=== PATIENT | male | born 1950 ===

== ENCOUNTER 2016-12-13 21:25 | Inpatient (IN) | payer MEDICAID ==
[2016-12-13 21:25] VITALS: BMI 27.3
[2016-12-13 22:14] LABS: BASO # 0.1 K/uL (0.0-0.2); BASO % 0.9 % (0.0-2.0); EOS # 0.5 K/uL (0.0-0.7); EOS % 4.6 % (0.0-4.0); HEMATOCRIT 36.4 % (35.0-51.0); LYMPH # 1.7 K/uL (1.0-4.3); LYMPH % 14.8 % (20.0-40.0); MEAN CELL VOLUME 78.1 fL (80.0-94.0); MEAN CORPUSCULAR HEMOGLOBIN 25.3 pg (27.0-31.0); MEAN CORPUSCULAR HGB CONC 32.4 g/dL (33.0-37.0); MEAN PLATELET VOLUME 8.1 fL (7.2-11.7); MONO # 0.4 K/uL (0.0-0.8); MONO % 3.8 % (0.0-10.0); NRBC % 0.1 % (0.0-2.0); RED CELL DISTRIBUTION WIDTH 14.6 % (11.5-14.5); WHITE BLOOD COUNT 11.5 K/uL (4.8-10.8)
[2016-12-13 22:20] LABS: CHLORIDE 98 mmol/L (98-107); POTASSIUM 4.1 mmol/L (3.6-5.2); SODIUM 132 mmol/L (132-148)
[2016-12-13 22:22] LABS: AST/SGOT 22 U/L (17-59); BILIRUBIN,TOTAL 0.6 mg/dL (0.2-1.3); CARBON DIOXIDE 25 mmol/L (22-30); GFR AFRICAN-AMERICAN > 60
[2016-12-13 22:23] LABS: ALKALINE PHOSPHATASE 82 U/L (38-126); ALT/SGPT 19 U/L (21-72); BLOOD UREA NITROGEN 27 mg/dL (9-20); CALCIUM 8.2 mg/dl (8.6-10.4); GLUCOSE,RANDOM 213 mg/dL (75-110)
[2016-12-13] MEDS ORDERED: Sodium Chloride 0.9% 1,000 ML IV ONE (22:37)
[2016-12-13] MEDS ORDERED: Iohexol 240 (50 ml) PO ONE (22:38)
--- NOTE | 2016-12-13 22:38 | C.PDOC ---
History Of Present Illness Patient is a 66 year old male who presents to the ER with a complaint of vomiting and abdominal pain since yesterday. Patient also report having a cyst on the back of his head. Denies fever, chills, dysuria and hematuria. Chief Complaint (Nursing): Abdominal Pain History Per: Patient History/Exam Limitations: no limitations Onset/Duration Of Symptoms: Days (Since yesterday) Current Symptoms Are (Timing): Still Present Location Of Pain/Discomfort: Epigastric Associated Symptoms: Vomiting. denies: Fever, Chills, Urinary Symptoms Exacerbating Factors: None Alleviating Factors: None Recent travel outside of the [place]: No Past Medical History Reviewed: Historical Data, Nursing Documentation, Vital Signs Vital Signs: Last Vital Signs Temp 98.0 F 12/14/16 02:41 Pulse 93 H 12/14/16 02:41 Resp 18 12/14/16 02:41 BP 164/95 H 12/14/16 02:41 Pulse Ox 98 12/14/16 02:41 - Medical History PMH: Diabetes, HTN, Hypercholesterolemia - [facility] Procedures CLOSED BIOPSY OF SKIN AND SUBCUTANEOUS TISSUE (12/09/14) DEBRIDEMENT OF NAIL, NAIL BED OR NAIL FOLD (03/03/15) DRAINAGE OF LEFT LOWER LEG SKIN, EXTERNAL APPROACH (09/09/16) EXCISION OF L FOOT SUBCU/FASCIA, OPEN APPROACH (09/09/16) FOOT & TOE JOINT BIOPSY (12/09/14) INSERTION OF INFUSION DEV INTO SUP VENA CAVA, PERC APPROACH (08/21/16) NONEXCIS DEBRID OF WOUND, INFECT, OR BURN (11/22/14) OTHER LOCAL DESTRUC SKIN (01/22/15) ULTRASONOGRAPHY OF SUPERIOR VENA CAVA, GUIDANCE (08/21/16) Family History: States: Unknown Family Hx - Social History Hx Tobacco Use: No Hx Alcohol Use: No Hx Substance Use: No - Immunization History Hx Tetanus Toxoid Vaccination: Yes Hx Influenza Vaccination: Yes (04/2016) Hx Pneumococcal Vaccination: Yes (2012) Review Of Systems Constitutional: Negative for: Fever, Chills Gastrointestinal: Positive for: Vomiting, Abdominal Pain Genitourinary: Negative for: Dysuria, Hematuria Skin: Positive for: Other (Cyst on back of head) Physical Exam - Physical Exam Appears: Non-toxic, Other (Mild distress) Skin: Normal Color, Warm, Dry Head: Other ([id number] sebaceous cyst on back of head) Eye(s): bilateral: Normal Inspection, EOMI Oral Mucosa: Moist Chest: Symmetrical, No Tenderness Cardiovascular: Rhythm Regular, No Murmur Respiratory: Normal Breath Sounds, No Rales, No Rhonchi, No Wheezing Gastrointestinal/Abdominal: Soft, Tenderness (Epigastric), No Distention, No Guarding, No Rebound Neurological/Psych: Oriented x3, Normal Speech, Normal Cognition ED Course And Treatment - Laboratory Results Result Diagrams: 12/13/16 22:07 12/13/16 22:07 O2 Sat by Pulse Oximetry: 96 (Room air) Pulse Ox Interpretation: Normal - Radiology CXR: Interpreted by Me, Viewed By Me CXR Interpretation: Yes: No Acute Disease. No: Infiltrates - CT Scan/US CT abd/pel Other Rad Studies (CT/US): Read By Radiologist, Radiology Report Reviewed CT/US Interpretation: IMPRESSION: 1. Diverticulosis without definite CT evidence of diverticulitis. 2. Bladder wall thickening, nonspecific. Clinical correlation is needed. 3. Incidental/non-acute findings are described above. Progress Note: CT of abd/pel with PO & IV contrast ordered. Morphine IVP, zofran IVP and IV fluids administered. Disposition Discussed With Dr.: Gurpreet Hogan Jr. Doctor Will See Patient In The: Hospital Counseled Patient/Family Regarding: Diagnosis - Disposition Disposition: HOSPITALIZED Disposition Time: 01:47 Condition: STABLE - POA Present On Arrival: None - Clinical Impression Clinical Impression: Abdominal pain, Acute pancreatitis - Scribe Statement The provider has reviewed the documentation as recorded by the Scribe Provider Attestation: Jeovany Barrett All medical record entries made by the Scribe were at my direction and personally dictated by me. I have reviewed the chart and agree that the record accurately reflects my personal performance of the history, physical exam, medical decision making, and the department course for this patient. I have also personally directed, reviewed, and agree with the discharge instructions and disposition.
[2016-12-13] MEDS ORDERED: Iohexol 240 (50 ml) ONE (22:51)
[2016-12-13] MEDS ORDERED: Sodium Chloride 0.9% 1,000 ML ONE (22:52)
[2016-12-13] MEDS ORDERED: Iodixanol 320 MG/ML 100 ML BOTTLE IV ONE (23:09)
--- NOTE | 2016-12-14 01:26 | CT ---
EXAM: CT Abdomen and Pelvis With Intravenous Contrast CLINICAL HISTORY: 66 years old, male; Pain; Abdominal pain; Additional info: Upper abd pain TECHNIQUE: Axial computed tomography images of the abdomen and pelvis with intravenous contrast. This CT exam was performed using one or more of the following dose reduction techniques: automated exposure control, adjustment of the mA and/or kV according to patient size, and/or use of iterative reconstruction technique. Coronal and sagittal reformatted images were created and reviewed. CONTRAST: 100 mL of [id number] administered intravenously. COMPARISON: No relevant prior studies available. FINDINGS: Limitations: Motion artifact - mild. Lower thorax: Minimal atelectasis/scarring. Probable small hiatal hernia. ABDOMEN: Liver: Unremarkable. No mass. Gallbladder and bile ducts: No calcified stones. No ductal dilation. Pancreas: No ductal dilation. No mass. Spleen: No splenomegaly. Adrenals: No mass. Kidneys and ureters: Mild stranding about kidneys, nonspecific. Too small to characterize lesion within LEFT kidney. No hydronephrosis. Stomach and bowel: Multiple scattered diverticula within colon. No associated inflammatory stranding. No definite mural thickening. No obstruction. Appendix: Normal caliber. No inflammation. PELVIS: Bladder: Mild focal anterior bladder wall thickening. Reproductive: Unremarkable as visualized. ABDOMEN and PELVIS: Intraperitoneal space: No significant fluid collection. No free air. Bones/joints: Mild degenerative changes of spine. No acute fracture. Soft tissues: Small inguinal hernias containing fat. Tiny umbilical hernia containing fat. Vasculature: Mild atherosclerotic disease. No abdominal aortic aneurysm. Lymph nodes: No pathologically enlarged lymph nodes. IMPRESSION: 1. Diverticulosis without definite CT evidence of diverticulitis. 2. Bladder wall thickening, nonspecific. Clinical correlation is needed. 3. Incidental/non-acute findings are described above.
[2016-12-14] MEDS: Sodium Chloride 0.9% 1,000 ML IV SCH ×4 (03:10→21:52)
--- NOTE | 2016-12-14 03:34 | CP.PCM.HP ---
History of Present Illness - History of Present Illness History of Present Illness: CC: "abdominal pain and vomiting" HPI: Patient is a 66 year old male with medical history significant for insulin dependent diabetes mellitus, hypertension, hyperlipidemia, left diabetic foot ulcer, and BPH who presents to the emergency department accompanied by his daughter for multiple episodes of emesis and abdominal pain. Patient reports the vomiting began around 6 am when he was getting ready to go to [facility] for wound care of his left foot. Daughter present at bedside states patient had 7 episodes of emesis, [id number] in color and streaked with blood during one episode. Patient admits to epigastric abdominal pain, 8/10 intensity, sharp in quality and intermittent. He denies diarrhea and states he had a non-bloody, normal bowel movement yesterday and denies melanic stool. He has no history of recent travel, denies sick contacts, fever, and chills. Patient also denies chest pain, shortness of breath, palpitations, and lower extremity swelling. He admits to pain, decreased sensation, and paresthesias of bilateral feet. Patient and daughter report extensive procedures to left foot ( see surgical history). Patient admits to previous history of alcohol abuse and states his last drink was 6 years ago. PMD: Dr. Reed PMH: see HPI Medications: Lantus 45 units SC BID, Novolog 100 U SC BID Gabapentin 300 mg po q8h, Metformin 500 mg po BID, Simvastatin 20 mg po daily, Enalapril 20 mg po daily, Tramadol HCL 50 mg po q6h prn, Colace 100 mg po BID, Tamsulosin 0.4 mg po daily, Ciprofloxacin 500 mg po q12h Allergies: NKDA Family History: DM - Mother, Father Surgical History: CLOSED BIOPSY OF SKIN AND SUBCUTANEOUS TISSUE (12/09/14) DEBRIDEMENT OF NAIL, NAIL BED OR NAIL FOLD (03/03/15) DRAINAGE OF LEFT LOWER LEG SKIN, EXTERNAL APPROACH (09/09/16) EXCISION OF L FOOT SUBCU/FASCIA, OPEN APPROACH (09/09/16) FOOT & TOE JOINT BIOPSY (12/09/14) INSERTION OF INFUSION DEV INTO SUP VENA CAVA, PERC APPROACH (08/21/16) NONEXCIS DEBRID OF WOUND, INFECT, OR BURN (11/22/14) OTHER LOCAL DESTRUC SKIN (01/22/15) ULTRASONOGRAPHY OF SUPERIOR VENA CAVA, GUIDANCE (08/21/16) Social History: Denies tobacco use. Previous history of alcohol abuse of 15 years. Last drink was 6 years ago. Denies illicit drug use. Present on Admission - Present on Admission Any Indicators Present on Admission: Yes History of DVT/PE: No History of Uncontrolled Diabetes: Yes Urinary Catheter: No Decubitus Ulcer Present: No Review of Systems - Constitutional Constitutional: absent: Chills, Fever, Headache - EENT Eyes: absent: Change in Vision Nose/Mouth/Throat: absent: Nasal Congestion, Nasal Discharge - Cardiovascular Cardiovascular: absent: Chest Pain, Chest Pain at Rest, Leg Edema, Palpitations - Respiratory Respiratory: absent: Cough, Dyspnea - Gastrointestinal Gastrointestinal: Abdominal Pain, Nausea, Vomiting. absent: Change in Bowel Habits, Constipation, Diarrhea, Hematochezia, Loose Stools, Melena - Genitourinary Genitourinary: Difficulty Urinating. absent: Dysuria - Musculoskeletal Musculoskeletal: Numbness, Tingling - Integumentary Integumentary: absent: Changing Lesions, New Lesions - Neurological Neurological: Numbness, Tingling. absent: Dizziness, Headaches, Weakness - Endocrine Endocrine: absent: Fatigue, Palpitations Past Patient History - Past Medical History & Family History Past Medical History?: Yes - Past Social History Smoking Status: Never Smoked - CARDIAC Hx Hypercholesterolemia: Yes Hx Hypertension: Yes - PULMONARY Hx Respiratory Disorders: No - NEUROLOGICAL Hx Neurological Disorder: No - HEENT Hx HEENT Problems: No - RENAL Hx Chronic Kidney Disease: No - ENDOCRINE/METABOLIC Hx Diabetes Mellitus Type 2: Yes - HEMATOLOGICAL/ONCOLOGICAL Hx Blood Disorders: No Hx Blood Transfusions: No - INTEGUMENTARY Hx Dermatological Problems: Yes Hx Cellulitis: Yes (RIGHT FOOT ) - MUSCULOSKELETAL/RHEUMATOLOGICAL Hx Musculoskeletal Disorders: No Hx Falls: Yes - GASTROINTESTINAL Hx Gastrointestinal Disorders: No - GENITOURINARY/GYNECOLOGICAL Hx Genitourinary Disorders: No - PSYCHIATRIC Hx Substance Use: No - SURGICAL HISTORY Hx Surgeries: Yes Other/Comment: debridement right foot 2014. DEBRIDEMENT LT.FOOT 08/2016 - ANESTHESIA Hx Anesthesia: Yes Hx Anesthesia Reactions: No Hx Malignant Hyperthermia: No Meds Allergies/Adverse Reactions: Allergies Allergy/AdvReac Type Severity Reaction Status Date / Time shrimp Allergy RASH Verified 12/13/16 21:56 Physical Exam - Constitutional Appears: Non-toxic, No Acute Distress - Head Exam Head Exam: ATRAUMATIC, NORMAL INSPECTION, NORMOCEPHALIC - Eye Exam Eye Exam: EOMI, Normal appearance, PERRL - ENT Exam ENT Exam: Mucous Membranes Dry - Neck Exam Neck exam: Positive for: Full Rom, Normal Inspection - Respiratory Exam Respiratory Exam: Clear to Auscultation Bilateral, NORMAL BREATHING PATTERN. absent: Rales, Rhonchi, Wheezes - Cardiovascular Exam Cardiovascular Exam: +S1, +S2. absent: Bradycardia, Tachycardia - GI/Abdominal Exam GI & Abdominal Exam: Normal Bowel Sounds, Soft. absent: Firm, Guarding, Tenderness - Extremities Exam Extremities exam: Positive for: normal capillary refill, pedal pulses present. Negative for: pedal edema, tenderness Additional comments: left foot dressing c/d/i - Back Exam Back exam: NORMAL INSPECTION - Neurological Exam Neurological exam: Alert, Oriented x3 - Psychiatric Exam Psychiatric exam: Normal Affect, Normal Mood - Skin Skin Exam: Intact, Normal Color Results - Vital Signs Recent Vital Signs: Last Vital Signs Temp 98.0 F 12/14/16 02:41 Pulse 93 H 12/14/16 02:41 Resp 18 12/14/16 02:41 BP 164/95 H 12/14/16 02:41 Pulse Ox 96 12/14/16 02:57 - Labs Result Diagrams: 12/13/16 22:07 12/13/16 22:07 Assessment & Plan - Assessment and Plan (Free Text) Assessment: 1. Acute Pancreatitis multiple episodes of emesis lipase 951 f/u amylase LFTS, Alk Phos within normal limits Started on normal saline IV @200cc Zofran 4 mg IVP q6h prn for nausea NPO Hold Simvastatin f/u fasting lipid panel CT abdomen and pelvis with po and IV contrast: 1. Diverticulosis without definite CT evidence of diverticulitis. 2. Bladder wall thickening, nonspecific. 3. Incidental/non-acute findings 2. Diabetes Mellitus Continue home medication Lantus 45 U SC BID and Gabapentin 300 mg po q8h Metformin 500 mg po BID Held Started on RISS - medium protocol f/u hemoglobin a1c Accuchecks Wound care for diabetic foot ulcer 3. Hypertension Continue home medication Enalapril 20 mg po daily Monitor 4. Hyperlipidemia Simvastatin - held f/u lipid panel 5. BPH Continue home medication Flomax 0.4 mg po daily 6. Prophylaxis SCDs Pepcid 20 mg IVP daily Lovenox 40 mg SC daily - Date & Time Date: 12/14/16 Time: 03:51
[2016-12-14 04:00] LABS: CHLORIDE 102 mmol/L (98-107); POTASSIUM 4.2 mmol/L (3.6-5.2); SODIUM 132 mmol/L (132-148)
[2016-12-14 04:02] LABS: AMYLASE 104 U/L (30-110); CARBON DIOXIDE 23 mmol/L (22-30); CHOLESTEROL 155 mg/dL (0-199); GFR AFRICAN-AMERICAN > 60
[2016-12-14 04:03] LABS: ALB/GLOB RATIO 0.8 (1.0-2.1); ALKALINE PHOSPHATASE 55 U/L (38-126); ALT/SGPT 17 U/L (21-72); AST/SGOT 23 U/L (17-59); BILIRUBIN,TOTAL 0.6 mg/dL (0.2-1.3); BLOOD UREA NITROGEN 24 mg/dL (9-20); CALCIUM 6.9 mg/dl (8.6-10.4); GLUCOSE,RANDOM 174 mg/dL (75-110); TOTAL PROTEIN 5.8 g/dL (6.3-8.3)
[2016-12-14 04:36] LABS: THYROID STIMULATING HORMONE 1.94 mIU/L (0.46-4.68)
--- NOTE | 2016-12-14 07:10 | CP.PCM.PN ---
Subjective - Date & Time of Evaluation Date of Evaluation: 12/14/16 Time of Evaluation: 08:30 - Subjective Subjective: PGY1 Medicine note for Dr. Hogan Pt seen and examined at bedside. Nursing reports no adverse events overnight. Today, pt is lying comfortably in bed and is in no acute distress. Pt states that he still has some epigastric pain, but says that it is much better than yesterday. He has had no episodes of nausea or vomiting today. He does complain that he is hungry and has a slight headache as he was NPO overnight. Pt denies fever, chills, dizziness, chest pain, palpitations, shortness of breath, nausea , vomiting, bowel/bladder pain, or leg swelling. He states he has a "bump" on his neck which bothers him. He says he has had it for 12 years and it gets bigger or smaller at times. He says he has squeezed it in the past and water like liquid came out. He has no acute complaints about he swelling at this time. Patient was requesting his diet be advanced. Objective - Vital Signs/Intake and Output Vital Signs (last 24 hours): Temp Pulse Resp BP Pulse Ox 97.6 F 91 H 20 130/71 98 12/14/16 03:15 12/14/16 03:15 12/14/16 03:15 12/14/16 05:30 12/14/16 03:15 - Medications Medications: Current Medications Docusate Sodium (Colace) 100 mg PO BID [facility] Donepezil HCl (Aricept) 5 mg PO DAILY [facility] Enalapril Maleate (Vasotec) 20 mg PO DAILY [facility] Enoxaparin Sodium (Lovenox) 40 mg SC DAILY [facility] Famotidine (Pepcid) 20 mg IVP DAILY [facility] Gabapentin (Neurontin) 300 mg PO Q8H [facility] Last Admin: 12/14/16 03:30 Dose: Not Given Sodium Chloride (Sodium Chloride 0.9%) 1,000 mls @ 100 mls/hr IV .Q10H ONE Stop: 12/14/16 08:36 Last Admin: 12/13/16 22:59 Dose: 100 mls/hr Sodium Chloride (Sodium Chloride 0.9%) 1,000 mls @ 200 mls/hr IV .Q5H [facility] Insulin Aspart (Novolog) 0 unit SC TIDAC [facility] PRN Reason: Protocol Insulin Glargine (Lantus) 45 unit SC BID [facility] Ondansetron HCl (Zofran Inj) 4 mg IVP Q6H PRN PRN Reason: Nausea/Vomiting Tamsulosin HCl (Flomax) 0.4 mg PO DAILY [facility] Tramadol HCl (Ultram) 50 mg PO Q6 PRN PRN Reason: Pain, moderate (4-7) - Labs Labs: 12/14/16 03:45 - Constitutional Appears: Non-toxic, No Acute Distress - Head Exam Head Exam: NORMAL INSPECTION - Eye Exam Eye Exam: EOMI, Normal appearance, PERRL. absent: Conjunctival injection, Scleral icterus - ENT Exam ENT Exam: Mucous Membranes Moist - Neck Exam Neck Exam: Full ROM, Normal Inspection. absent: Lymphadenopathy, Tenderness Additional comments: 3x3 nonfluctuant nontender nonerythematous swelling noted on posterior aspect of patient"s neck - Respiratory Exam Respiratory Exam: Clear to Ausculation Bilateral, NORMAL BREATHING PATTERN. absent: Accessory Muscle Use, Rales, Rhonchi, Wheezes, Respiratory Distress - Cardiovascular Exam Cardiovascular Exam: REGULAR RHYTHM, RRR, +S1, +S2. absent: Murmur - GI/Abdominal Exam GI & Abdominal Exam: Soft, Normal Bowel Sounds. absent: Distended, Firm, Guarding, Rigid, Tenderness - Rectal Exam Rectal Exam: Deferred - Extremities Exam Extremities Exam: Normal Capillary Refill. absent: Pedal Edema Additional comments: left foot dressing c/d/i - Back Exam Back Exam: NORMAL INSPECTION. absent: rash noted - Neurological Exam Neurological Exam: Alert, Awake, Oriented x3 - Psychiatric Exam Psychiatric exam: Normal Affect, Normal Mood - Skin Skin Exam: Dry, Intact, Normal Color, Warm Assessment and Plan - Assessment and Plan (Free Text) Assessment: 66 year old male with medical history significant for insulin dependent diabetes mellitus, hypertension, hyperlipidemia, left diabetic foot ulcer, and BPH who presents with multiple episodes of emesis and abdominal pain Plan: 1. Acute Pancreatitis lipase 951 amylase 104 LFTS, Alk Phos within normal limits NS IV @ 100cc Zofran 4 mg IVP q6h prn for nausea Ultram 50mg po q6 prn pain mod Clear Liquid Diet Hold Simvastatin fasting lipid panel WNL CT abdomen and pelvis with po and IV contrast: 1. Diverticulosis without definite CT evidence of diverticulitis. 2. Bladder wall thickening, nonspecific. 3. Incidental/non-acute findings 2. Diabetes Mellitus Lantus 45 U SC BID Gabapentin 300 mg po q8h Started on RISS - medium protocol f/u hemoglobin a1c Accuchecks Wound care for diabetic foot ulcer 3. Hypertension Enalapril 20 mg po daily Donepezil 5mg po daily Monitor 4. Hyperlipidemia Simvastatin - held lipid panel WNL 5. BPH Flomax 0.4 mg po daily 6. Prophylaxis SCDs Pepcid 20 mg IVP daily Lovenox 40 mg SC daily Zofran 4mg IVP Q6H prn nausea/vomiting Colace 100mg po bid Clear Liquid diet NS @ 100cc/hr Plan discussed with Dr. Edison Corley PGY1
[2016-12-14 07:34] LABS: BASO # 0.1 K/uL (0.0-0.2); BASO % 0.8 % (0.0-2.0); EOS # 0.5 K/uL (0.0-0.7); HEMATOCRIT 32.9 % (35.0-51.0); LYMPH # 2.5 K/uL (1.0-4.3); LYMPH % 22.5 % (20.0-40.0); MEAN CELL VOLUME 77.4 fL (80.0-94.0); MEAN CORPUSCULAR HEMOGLOBIN 25.5 pg (27.0-31.0); MEAN PLATELET VOLUME 8.1 fL (7.2-11.7); MONO # 0.8 K/uL (0.0-0.8); MONO % 6.8 % (0.0-10.0); RED CELL DISTRIBUTION WIDTH 14.4 % (11.5-14.5); WHITE BLOOD COUNT 11.3 K/uL (4.8-10.8)
[2016-12-14] MEDS: (Novolog) Insulin Aspart, Recombinant 100 u/ml 10 ml vial SC SCH ×3 (08:09→18:13)
--- NOTE | 2016-12-14 08:30 | RAD ---
HISTORY: to check for CHF COMPARISON: No prior. FINDINGS: LUNGS: Mild patchy increased markings at the left lung base. Few areas of nodularity at the left lung base may represent costochondral calcifications. Small nodular density in the right mid lung zone likely represents confluence of shadows of vessels. PLEURA: No significant pleural effusion identified, no pneumothorax apparent. CARDIOVASCULAR: Normal. OSSEOUS STRUCTURES: No significant abnormalities. VISUALIZED UPPER ABDOMEN: Normal. OTHER FINDINGS: None. IMPRESSION: Mild patchy increased markings at the left lung base. Few areas of nodularity at the left lung base may represent costochondral calcifications. Small nodular density in the right mid lung zone likely represents confluence of shadows of vessels.
[2016-12-14] MEDS: Enoxaparin 40 mg Syringe SC SCH (10:00)
[2016-12-14] MEDS: (Lantus) Insulin Glargine, Recombinant SC SCH ×2 (10:59→18:13)
[2016-12-15 06:21] LABS: BASO # 0.1 K/uL (0.0-0.2); BASO % 0.9 % (0.0-2.0); EOS # 0.7 K/uL (0.0-0.7); EOS % 6.2 % (0.0-4.0); LYMPH # 2.8 K/uL (1.0-4.3); LYMPH % 25.6 % (20.0-40.0); MEAN CELL VOLUME 78.4 fL (80.0-94.0); MEAN CORPUSCULAR HEMOGLOBIN 25.6 pg (27.0-31.0); MEAN CORPUSCULAR HGB CONC 32.6 g/dL (33.0-37.0); MEAN PLATELET VOLUME 8.2 fL (7.2-11.7); MONO # 0.9 K/uL (0.0-0.8); MONO % 7.9 % (0.0-10.0); RED CELL DISTRIBUTION WIDTH 14.5 % (11.5-14.5); WHITE BLOOD COUNT 10.8 K/uL (4.8-10.8)
[2016-12-15 06:29] LABS: CHLORIDE 104 mmol/L (98-107); SODIUM 136 mmol/L (132-148)
[2016-12-15 06:30] LABS: POTASSIUM 3.8 mmol/L (3.6-5.2)
[2016-12-15 06:31] LABS: GFR AFRICAN-AMERICAN > 60
[2016-12-15 06:32] LABS: ALB/GLOB RATIO 0.8 (1.0-2.1); ALKALINE PHOSPHATASE 58 U/L (38-126); ALT/SGPT 15 U/L (21-72); AST/SGOT 21 U/L (17-59); BILIRUBIN,TOTAL 0.4 mg/dL (0.2-1.3); BLOOD UREA NITROGEN 20 mg/dL (9-20); CARBON DIOXIDE 26 mmol/L (22-30); GLUCOSE,RANDOM 51 mg/dL (75-110); PHOSPHOROUS 4.4 mg/dL (2.5-4.5); TOTAL PROTEIN 5.9 g/dL (6.3-8.3)
[2016-12-15 06:33] LABS: CALCIUM 7.6 mg/dl (8.6-10.4)
--- NOTE | 2016-12-15 07:04 | CP.PCM.PN ---
<Jami Corley - Last Filed: 12/15/16 13:04> Subjective - Date & Time of Evaluation Date of Evaluation: 12/15/16 Time of Evaluation: 07:15 - Subjective Subjective: PGY1 Medicine note for Dr. Hogan Pt seen and examined at bedside. Overnight events noted. Today, pt is lying comfortably in bed with friend at bedside and is in no acute distress. Pt states that he still has some epigastric pain, but says that it's "only a little bit." He has had no episodes of nausea or vomiting today or yesterday and tolerated his full liquid diet. He complains that he is very hungry. He requests a walker so that he can ambulate to the bathroom on his own. Pt denies fever, chills, headache, dizziness, chest pain, palpitations, shortness of breath, cough, nausea, vomiting, bowel/bladder complaints, or leg swelling. Objective - Vital Signs/Intake and Output Vital Signs (last 24 hours): Temp Pulse Resp BP Pulse Ox 97.9 F 85 20 143/84 97 12/14/16 23:45 12/14/16 23:45 12/14/16 23:45 12/14/16 23:45 12/14/16 23:45 Intake and Output: 12/15/16 12/15/16 06:59 18:59 Intake Total 1300 Output Total 900 Balance 400 - Medications Medications: Current Medications Docusate Sodium (Colace) 100 mg PO BID [facility] Last Admin: 12/14/16 18:13 Dose: 100 mg Donepezil HCl (Aricept) 5 mg PO DAILY [facility] Last Admin: 12/14/16 10:59 Dose: Not Given Enalapril Maleate (Vasotec) 20 mg PO DAILY [facility] Last Admin: 12/14/16 10:59 Dose: Not Given Enoxaparin Sodium (Lovenox) 40 mg SC DAILY [facility] Last Admin: 12/14/16 10:00 Dose: 40 mg Famotidine (Pepcid) 20 mg IVP DAILY [facility] Last Admin: 12/14/16 10:00 Dose: 20 mg Gabapentin (Neurontin) 300 mg PO Q8H [facility] Last Admin: 12/15/16 02:27 Dose: 300 mg Sodium Chloride (Sodium Chloride 0.9%) 1,000 mls @ 100 mls/hr IV .Q10H [facility] Last Admin: 12/14/16 21:52 Dose: 100 mls/hr Insulin Aspart (Novolog) 0 unit SC TIDAC [facility] PRN Reason: Protocol Last Admin: 12/14/16 18:13 Dose: 3 unit Insulin Glargine (Lantus) 45 unit SC BID [facility] Last Admin: 12/14/16 18:13 Dose: 45 units Ondansetron HCl (Zofran Inj) 4 mg IVP Q6H PRN PRN Reason: Nausea/Vomiting Tamsulosin HCl (Flomax) 0.4 mg PO DAILY [facility] Last Admin: 12/14/16 10:59 Dose: Not Given Tramadol HCl (Ultram) 50 mg PO Q6 PRN PRN Reason: Pain, moderate (4-7) - Labs Labs: 12/15/16 06:03 12/15/16 06:03 - Constitutional Appears: Non-toxic, No Acute Distress - Head Exam Head Exam: ATRAUMATIC, NORMAL INSPECTION, NORMOCEPHALIC - Eye Exam Eye Exam: Normal appearance. absent: Conjunctival injection, Scleral icterus Pupil Exam: NORMAL ACCOMODATION - ENT Exam ENT Exam: Mucous Membranes Moist - Neck Exam Neck Exam: Full ROM, Normal Inspection. absent: Tenderness Additional comments: 3x3 nonfluctuant nontender nonerythematous swelling noted on posterior aspect of patient"s neck - Respiratory Exam Respiratory Exam: Clear to Ausculation Bilateral, NORMAL BREATHING PATTERN. absent: Accessory Muscle Use, Rales, Rhonchi, Wheezes, Respiratory Distress - Cardiovascular Exam Cardiovascular Exam: REGULAR RHYTHM, RRR, +S1, +S2. absent: Murmur - GI/Abdominal Exam GI & Abdominal Exam: Soft, Normal Bowel Sounds. absent: Distended, Firm, Guarding, Rigid, Tenderness - Extremities Exam Extremities Exam: absent: Pedal Edema Additional comments: left foot dressing c/d/i - Back Exam Back Exam: NORMAL INSPECTION - Neurological Exam Neurological Exam: Alert, Awake, Oriented x3 - Psychiatric Exam Psychiatric exam: Normal Affect, Normal Mood - Skin Skin Exam: Dry, Intact, Normal Color, Warm Assessment and Plan - Assessment and Plan (Free Text) Assessment: 66 year old male with PMHx insulin dependent diabetes mellitus, hypertension, hyperlipidemia, left diabetic foot ulcer, and BPH presents with multiple episodes of emesis and abdominal pain Plan: 1. Acute Pancreatitis lipase 951 on admission amylase 104 LFTS, Alk Phos within normal limits BUN trending down NS IV @ 100cc Zofran 4 mg IVP q6h prn for nausea Ultram 50mg po q6 prn pain mod Lipid panel and TG WNL CT abdomen and pelvis with po and IV contrast: 1. Diverticulosis without definite CT evidence of diverticulitis. 2. Bladder wall thickening, nonspecific. 3. Incidental/non-acute findings 2. Diabetes Mellitus Lantus 45 U SC BID Gabapentin 300 mg po q8h Started on RISS - medium protocol hemoglobin a1c 7.2 Accuchecks Wound care for diabetic foot ulcer Dr. Barrientos podiatry on board for foot ulcer 3. Hypertension Enalapril 20 mg po daily Donepezil 5mg po daily Monitor 4. Hyperlipidemia Simvastatin - held lipid panel WNL 5. BPH Flomax 0.4 mg po daily 6. Prophylaxis SCDs Pepcid 20 mg IVP daily Lovenox 40 mg SC daily Zofran 4mg IVP Q6H prn nausea/vomiting Colace 100mg po bid Soft diet NS @ 100cc/hr Will discuss plan with Dr. Edison Corley PGY1 <Gurpreet Hogan Jr. - Last Filed: 12/17/16 11:11> Objective - Vital Signs/Intake and Output Vital Signs (last 24 hours): Temp Pulse Resp BP Pulse Ox 98.1 F 82 20 165/86 H 99 12/15/16 15:08 12/15/16 15:08 12/15/16 15:08 12/15/16 15:08 12/15/16 15:08 - Labs Labs: 12/15/16 06:03 12/15/16 06:03 Attending/Attestation - Attestation I have personally seen and examined this patient.: Yes I have fully participated in the care of the patient.: Yes I have reviewed all pertinent clinical information, including history, physical exam and plan: Yes Notes (Text): 12/17/16 11:11 Agree with resident note and plan of care
[2016-12-15] MEDS: (Novolog) Insulin Aspart, Recombinant 100 u/ml 10 ml vial SC SCH ×2 (07:30→12:21)
--- NOTE | 2016-12-15 08:23 | CP.PCM.CON ---
Past Patient History - Past Medical History & Family History Past Medical History?: Yes - Past Social History Smoking Status: Never Smoked - CARDIAC Hx Hypercholesterolemia: Yes Hx Hypertension: Yes - PULMONARY Hx Respiratory Disorders: No - NEUROLOGICAL Hx Neurological Disorder: No - HEENT Hx HEENT Problems: No - RENAL Hx Chronic Kidney Disease: No - ENDOCRINE/METABOLIC Hx Diabetes Mellitus Type 2: Yes - HEMATOLOGICAL/ONCOLOGICAL Hx Blood Disorders: No Hx Blood Transfusions: No - INTEGUMENTARY Hx Dermatological Problems: Yes Hx Cellulitis: Yes (RIGHT FOOT ) - MUSCULOSKELETAL/RHEUMATOLOGICAL Hx Musculoskeletal Disorders: No Hx Falls: Yes - GASTROINTESTINAL Hx Gastrointestinal Disorders: No - GENITOURINARY/GYNECOLOGICAL Hx Genitourinary Disorders: No - PSYCHIATRIC Hx Substance Use: No - SURGICAL HISTORY Hx Surgeries: Yes Other/Comment: debridement right foot 2014. DEBRIDEMENT LT.FOOT 08/2016 - ANESTHESIA Hx Anesthesia: Yes Hx Anesthesia Reactions: No Hx Malignant Hyperthermia: No Meds Allergies/Adverse Reactions: Allergies Allergy/AdvReac Type Severity Reaction Status Date / Time shrimp Allergy RASH Verified 12/13/16 21:56 - Medications Medications: Current Medications Docusate Sodium (Colace) 100 mg PO BID [facility] Last Admin: 12/14/16 18:13 Dose: 100 mg Donepezil HCl (Aricept) 5 mg PO DAILY [facility] Last Admin: 12/14/16 10:59 Dose: Not Given Enalapril Maleate (Vasotec) 20 mg PO DAILY [facility] Last Admin: 12/14/16 10:59 Dose: Not Given Enoxaparin Sodium (Lovenox) 40 mg SC DAILY [facility] Last Admin: 12/14/16 10:00 Dose: 40 mg Famotidine (Pepcid) 20 mg IVP DAILY [facility] Last Admin: 12/14/16 10:00 Dose: 20 mg Gabapentin (Neurontin) 300 mg PO Q8H [facility] Last Admin: 12/15/16 02:27 Dose: 300 mg Sodium Chloride (Sodium Chloride 0.9%) 1,000 mls @ 100 mls/hr IV .Q10H [facility] Last Admin: 12/14/16 21:52 Dose: 100 mls/hr Insulin Aspart (Novolog) 0 unit SC TIDAC [facility] PRN Reason: Protocol Last Admin: 12/14/16 18:13 Dose: 3 unit Insulin Glargine (Lantus) 45 unit SC BID [facility] Last Admin: 12/14/16 18:13 Dose: 45 units Ondansetron HCl (Zofran Inj) 4 mg IVP Q6H PRN PRN Reason: Nausea/Vomiting Tamsulosin HCl (Flomax) 0.4 mg PO DAILY [facility] Last Admin: 12/14/16 10:59 Dose: Not Given Tramadol HCl (Ultram) 50 mg PO Q6 PRN PRN Reason: Pain, moderate (4-7) Results - Vital Signs Recent Vital Signs: Last Vital Signs Temp 97.6 F 12/15/16 07:25 Pulse 88 12/15/16 07:25 Resp 18 12/15/16 07:25 BP 131/66 12/15/16 07:25 Pulse Ox 98 12/15/16 07:25 - Labs Result Diagrams: 12/15/16 06:03 12/15/16 06:03 Labs: Laboratory Results - last 24 hr 12/14/16 12/14/16 12/14/16 07:08 11:14 11:23 WBC RBC Hgb Hct MCV MCH MCHC RDW Plt Count MPV Neut % (Auto) Lymph % (Auto) [place] % (Auto) Eos % (Auto) Baso % (Auto) Neut # Lymph # [place] # Eos # Baso # Sodium Potassium Chloride Carbon Dioxide Anion Gap BUN Creatinine Est GFR ( Amer) Est GFR (Non-Af Amer) POC Glucose (mg/dL) 149 H Random Glucose Hemoglobin A1c 7.2 H D Calcium Phosphorus Magnesium Total Bilirubin AST ALT Alkaline Phosphatase Total Creatine Kinase 80 CK-MB (Mass) 1.56 Troponin I, Quant < 0.0120 Total Protein Albumin Globulin Albumin/Globulin Ratio 12/14/16 12/14/16 12/14/16 16:42 19:16 21:00 WBC RBC Hgb Hct MCV MCH MCHC RDW Plt Count MPV Neut % (Auto) Lymph % (Auto) [place] % (Auto) Eos % (Auto) Baso % (Auto) Neut # Lymph # [place] # Eos # Baso # Sodium Potassium Chloride Carbon Dioxide Anion Gap BUN Creatinine Est GFR ( Amer) Est GFR (Non-Af Amer) POC Glucose (mg/dL) 255 H 102 Random Glucose Hemoglobin A1c Calcium Phosphorus Magnesium Total Bilirubin AST ALT Alkaline Phosphatase Total Creatine Kinase 91 CK-MB (Mass) 1.46 Troponin I, Quant < 0.0120 Total Protein Albumin Globulin Albumin/Globulin Ratio 12/15/16 12/15/16 12/15/16 06:03 06:03 06:21 WBC 10.8 RBC 4.09 L Hgb 10.5 L Hct 32.0 L MCV 78.4 L MCH 25.6 L MCHC 32.6 L RDW 14.5 Plt Count 244 MPV 8.2 Neut % (Auto) 59.4 Lymph % (Auto) 25.6 [place] % (Auto) 7.9 Eos % (Auto) 6.2 H Baso % (Auto) 0.9 Neut # 6.4 Lymph # 2.8 [place] # 0.9 H Eos # 0.7 Baso # 0.1 Sodium 136 Potassium 3.8 Chloride 104 Carbon Dioxide 26 Anion Gap 10 BUN 20 Creatinine 1.3 Est GFR ( Amer) > 60 Est GFR (Non-Af Amer) 56 POC Glucose (mg/dL) 56 L Random Glucose 51 L Hemoglobin A1c Calcium 7.6 L Phosphorus 4.4 Magnesium 2.0 Total Bilirubin 0.4 AST 21 ALT 15 L Alkaline Phosphatase 58 Total Creatine Kinase CK-MB (Mass) Troponin I, Quant Total Protein 5.9 L Albumin 2.7 L Globulin 3.3 Albumin/Globulin Ratio 0.8 L 12/15/16 06:39 WBC RBC Hgb Hct MCV MCH MCHC RDW Plt Count MPV Neut % (Auto) Lymph % (Auto) [place] % (Auto) Eos % (Auto) Baso % (Auto) Neut # Lymph # [place] # Eos # Baso # Sodium Potassium Chloride Carbon Dioxide Anion Gap BUN Creatinine Est GFR ( Amer) Est GFR (Non-Af Amer) POC Glucose (mg/dL) 75 Random Glucose Hemoglobin A1c Calcium Phosphorus Magnesium Total Bilirubin AST ALT Alkaline Phosphatase Total Creatine Kinase CK-MB (Mass) Troponin I, Quant Total Protein Albumin Globulin Albumin/Globulin Ratio
[2016-12-15] MEDS: Sodium Chloride 0.9% 1,000 ML IV SCH (08:29)
[2016-12-15] MEDS: Enoxaparin 40 mg Syringe SC SCH (09:03)
--- NOTE | 2016-12-15 09:03 | CP.PCM.CON ---
History of Present Illness - History of Present Illness History of Present Illness: This is a 66 y/o male who was seen and evaluated at bedside this morning with attending, Dr. Barrientos for treatment of Left foot plantar diabetic wound. Patient was resting comfortably, in NAD. Patient denies any pain in his Left foot. No other pedal complaints reported at this time. Past Patient History - Past Medical History & Family History Past Medical History?: Yes - Past Social History Smoking Status: Never Smoked - CARDIAC Hx Hypercholesterolemia: Yes Hx Hypertension: Yes - PULMONARY Hx Respiratory Disorders: No - NEUROLOGICAL Hx Neurological Disorder: No - HEENT Hx HEENT Problems: No - RENAL Hx Chronic Kidney Disease: No - ENDOCRINE/METABOLIC Hx Diabetes Mellitus Type 2: Yes - HEMATOLOGICAL/ONCOLOGICAL Hx Blood Disorders: No Hx Blood Transfusions: No - INTEGUMENTARY Hx Dermatological Problems: Yes Hx Cellulitis: Yes (RIGHT FOOT ) - MUSCULOSKELETAL/RHEUMATOLOGICAL Hx Musculoskeletal Disorders: No Hx Falls: Yes - GASTROINTESTINAL Hx Gastrointestinal Disorders: No - GENITOURINARY/GYNECOLOGICAL Hx Genitourinary Disorders: No - PSYCHIATRIC Hx Substance Use: No - SURGICAL HISTORY Hx Surgeries: Yes Other/Comment: debridement right foot 2014. DEBRIDEMENT LT.FOOT 08/2016 - ANESTHESIA Hx Anesthesia: Yes Hx Anesthesia Reactions: No Hx Malignant Hyperthermia: No Meds Allergies/Adverse Reactions: Allergies Allergy/AdvReac Type Severity Reaction Status Date / Time shrimp Allergy RASH Verified 12/13/16 21:56 - Medications Medications: Current Medications Docusate Sodium (Colace) 100 mg PO BID [facility] Last Admin: 12/15/16 09:02 Dose: 100 mg Donepezil HCl (Aricept) 5 mg PO DAILY [facility] Last Admin: 12/14/16 10:59 Dose: Not Given Enalapril Maleate (Vasotec) 20 mg PO DAILY [facility] Last Admin: 12/14/16 10:59 Dose: Not Given Enoxaparin Sodium (Lovenox) 40 mg SC DAILY [facility] Last Admin: 12/14/16 10:00 Dose: 40 mg Famotidine (Pepcid) 20 mg IVP DAILY [facility] Last Admin: 12/14/16 10:00 Dose: 20 mg Gabapentin (Neurontin) 300 mg PO Q8H [facility] Last Admin: 12/15/16 02:27 Dose: 300 mg Sodium Chloride (Sodium Chloride 0.9%) 1,000 mls @ 100 mls/hr IV .Q10H [facility] Last Admin: 12/15/16 08:29 Dose: 100 mls/hr Insulin Aspart (Novolog) 0 unit SC TIDAC [facility] PRN Reason: Protocol Last Admin: 12/15/16 07:30 Dose: Not Given Insulin Glargine (Lantus) 45 unit SC BID [facility] Last Admin: 12/14/16 18:13 Dose: 45 units Ondansetron HCl (Zofran Inj) 4 mg IVP Q6H PRN PRN Reason: Nausea/Vomiting Tamsulosin HCl (Flomax) 0.4 mg PO DAILY [facility] Last Admin: 12/15/16 09:02 Dose: 0.4 mg Tramadol HCl (Ultram) 50 mg PO Q6 PRN PRN Reason: Pain, moderate (4-7) Physical Exam - Constitutional Appears: Non-toxic, No Acute Distress - Neurological Exam Neurological exam: Alert, Oriented x3 - Psychiatric Exam Psychiatric exam: Normal Affect, Normal Mood - Skin Skin Exam: Dry, Normal Color, Warm - Additional Findings Additional findings: Left foot exam: Vascular: DP/PT 2/4, TG wnl, CFT < 3 sec to all digits Neuro: protective sensation grossly diminished Derm: open wound noted to plantar medial aspect of the foot the medial arch; wound measures approximately 3cm x 1cm x 0.1cm and is composed of a 100% granular base; no drainage; no erythema, no purulence, no malodor; no clinical signs of infection noted Ortho: no pain to palpation of the ulceration Results - Vital Signs Recent Vital Signs: Last Vital Signs Temp 97.6 F 12/15/16 07:25 Pulse 88 12/15/16 07:25 Resp 18 12/15/16 07:25 BP 130/64 12/15/16 09:02 Pulse Ox 98 12/15/16 07:25 - Labs Result Diagrams: 12/15/16 06:03 12/15/16 06:03 Labs: Laboratory Results - last 24 hr 12/14/16 12/14/16 12/14/16 07:08 11:14 11:23 WBC RBC Hgb Hct MCV MCH MCHC RDW Plt Count MPV Neut % (Auto) Lymph % (Auto) [place] % (Auto) Eos % (Auto) Baso % (Auto) Neut # Lymph # [place] # Eos # Baso # Sodium Potassium Chloride Carbon Dioxide Anion Gap BUN Creatinine Est GFR ( Amer) Est GFR (Non-Af Amer) POC Glucose (mg/dL) 149 H Random Glucose Hemoglobin A1c 7.2 H D Calcium Phosphorus Magnesium Total Bilirubin AST ALT Alkaline Phosphatase Total Creatine Kinase 80 CK-MB (Mass) 1.56 Troponin I, Quant < 0.0120 Total Protein Albumin Globulin Albumin/Globulin Ratio 12/14/16 12/14/16 12/14/16 16:42 19:16 21:00 WBC RBC Hgb Hct MCV MCH MCHC RDW Plt Count MPV Neut % (Auto) Lymph % (Auto) [place] % (Auto) Eos % (Auto) Baso % (Auto) Neut # Lymph # [place] # Eos # Baso # Sodium Potassium Chloride Carbon Dioxide Anion Gap BUN Creatinine Est GFR ( Amer) Est GFR (Non-Af Amer) POC Glucose (mg/dL) 255 H 102 Random Glucose Hemoglobin A1c Calcium Phosphorus Magnesium Total Bilirubin AST ALT Alkaline Phosphatase Total Creatine Kinase 91 CK-MB (Mass) 1.46 Troponin I, Quant < 0.0120 Total Protein Albumin Globulin Albumin/Globulin Ratio 12/15/16 12/15/16 12/15/16 06:03 06:03 06:21 WBC 10.8 RBC 4.09 L Hgb 10.5 L Hct 32.0 L MCV 78.4 L MCH 25.6 L MCHC 32.6 L RDW 14.5 Plt Count 244 MPV 8.2 Neut % (Auto) 59.4 Lymph % (Auto) 25.6 [place] % (Auto) 7.9 Eos % (Auto) 6.2 H Baso % (Auto) 0.9 Neut # 6.4 Lymph # 2.8 [place] # 0.9 H Eos # 0.7 Baso # 0.1 Sodium 136 Potassium 3.8 Chloride 104 Carbon Dioxide 26 Anion Gap 10 BUN 20 Creatinine 1.3 Est GFR ( Amer) > 60 Est GFR (Non-Af Amer) 56 POC Glucose (mg/dL) 56 L Random Glucose 51 L Hemoglobin A1c Calcium 7.6 L Phosphorus 4.4 Magnesium 2.0 Total Bilirubin 0.4 AST 21 ALT 15 L Alkaline Phosphatase 58 Total Creatine Kinase CK-MB (Mass) Troponin I, Quant Total Protein 5.9 L Albumin 2.7 L Globulin 3.3 Albumin/Globulin Ratio 0.8 L 12/15/16 06:39 WBC RBC Hgb Hct MCV MCH MCHC RDW Plt Count MPV Neut % (Auto) Lymph % (Auto) [place] % (Auto) Eos % (Auto) Baso % (Auto) Neut # Lymph # [place] # Eos # Baso # Sodium Potassium Chloride Carbon Dioxide Anion Gap BUN Creatinine Est GFR ( Amer) Est GFR (Non-Af Amer) POC Glucose (mg/dL) 75 Random Glucose Hemoglobin A1c Calcium Phosphorus Magnesium Total Bilirubin AST ALT Alkaline Phosphatase Total Creatine Kinase CK-MB (Mass) Troponin I, Quant Total Protein Albumin Globulin Albumin/Globulin Ratio Assessment & Plan - Assessment and Plan (Free Text) Assessment: 66 y/o male with chronic Left foot wound at plantar medial arch, stable. Plan: Patient seen and evaluated at bedside with attending, Dr. Barrientos Labs and vitals reviewed Left foot wound was dressed with Xeroform DSD Bactroban ordered for daily dressing changes As per Dr. Barrientos, patient's wound has improved significantly We will continue to perform local wound care Podiatry to follow while patient remains in house
[2016-12-15] MEDS: (Lantus) Insulin Glargine, Recombinant SC SCH (09:15)
--- NOTE | 2016-12-15 15:53 | CP.PCM.DIS ---
Provider - Provider Date of Admission: 12/14/16 02:00 Attending physician: Gurpreet Hogan Jr, MD Primary care physician: Dr Reed Consults: Dr Barrientos podiatry Time Spent in preparation of Discharge (in minutes): 45 Hospital Course - Lab Results Lab Results: Most Recent Lab Values WBC 10.8 K/uL (4.8-10.8) 12/15/16 06:03 RBC 4.09 Mil/uL (4.40-5.90) L 12/15/16 06:03 Hgb 10.5 g/dL (12.0-18.0) L 12/15/16 06:03 Hct 32.0 % (35.0-51.0) L 12/15/16 06:03 MCV 78.4 fL (80.0-94.0) L 12/15/16 06:03 MCH 25.6 pg (27.0-31.0) L 12/15/16 06:03 MCHC 32.6 g/dL (33.0-37.0) L 12/15/16 06:03 RDW 14.5 % (11.5-14.5) 12/15/16 06:03 Plt Count 244 K/uL (130-400) 12/15/16 06:03 MPV 8.2 fL (7.2-11.7) 12/15/16 06:03 Neut % (Auto) 59.4 % (50.0-75.0) 12/15/16 06:03 Lymph % (Auto) 25.6 % (20.0-40.0) 12/15/16 06:03 [place] % (Auto) 7.9 % (0.0-10.0) 12/15/16 06:03 Eos % (Auto) 6.2 % (0.0-4.0) H 12/15/16 06:03 Baso % (Auto) 0.9 % (0.0-2.0) 12/15/16 06:03 Neut # 6.4 K/uL (1.8-7.0) 12/15/16 06:03 Lymph # 2.8 K/uL (1.0-4.3) 12/15/16 06:03 [place] # 0.9 K/uL (0.0-0.8) H 12/15/16 06:03 Eos # 0.7 K/uL (0.0-0.7) 12/15/16 06:03 Baso # 0.1 K/uL (0.0-0.2) 12/15/16 06:03 Sodium 136 mmol/L (132-148) 12/15/16 06:03 Potassium 3.8 mmol/L (3.6-5.2) 12/15/16 06:03 Chloride 104 mmol/L (98-107) 12/15/16 06:03 Carbon Dioxide 26 mmol/L (22-30) 12/15/16 06:03 Anion Gap 10 (10-20) 12/15/16 06:03 BUN 20 mg/dL (9-20) 12/15/16 06:03 Creatinine 1.3 MG/DL (0.8-1.5) 12/15/16 06:03 Est GFR ( Amer) > 60 12/15/16 06:03 Est GFR (Non-Af Amer) 56 12/15/16 06:03 POC Glucose (mg/dL) 188 mg/dL (65-110) H 12/15/16 11:51 Random Glucose 51 mg/dL (75-110) L 12/15/16 06:03 Hemoglobin A1c 7.2 % (4.2-6.5) H D 12/14/16 07:08 Calcium 7.6 mg/dl (8.6-10.4) L 12/15/16 06:03 Phosphorus 4.4 mg/dL (2.5-4.5) 12/15/16 06:03 Magnesium 2.0 mg/dL (1.6-2.3) 12/15/16 06:03 Total Bilirubin 0.4 mg/dL (0.2-1.3) 12/15/16 06:03 AST 21 U/L (17-59) 12/15/16 06:03 ALT 15 U/L (21-72) L 12/15/16 06:03 Alkaline Phosphatase 58 U/L (38-126) 12/15/16 06:03 Total Creatine Kinase 91 U/L (55-170) 12/14/16 19:16 CK-MB (Mass) 1.46 ng/mL (0.0-3.38) 12/14/16 19:16 Troponin I, Quant < 0.0120 ng/mL (0.00-0.120) 12/14/16 19:16 Total Protein 5.9 g/dL (6.3-8.3) L 12/15/16 06:03 Albumin 2.7 g/dL (3.5-5.0) L 12/15/16 06:03 Globulin 3.3 gm/dL (2.2-3.9) 12/15/16 06:03 Albumin/Globulin Ratio 0.8 (1.0-2.1) L 12/15/16 06:03 Triglycerides 73 mg/dL (0-149) 12/14/16 03:45 Cholesterol 155 mg/dL (0-199) 12/14/16 03:45 LDL Cholesterol Direct 80 mg/dL (0-129) 12/14/16 03:45 HDL Cholesterol 43 mg/dL (30-70) 12/14/16 03:45 Amylase 104 U/L (30-110) 12/14/16 03:45 Lipase 951 U/L (23-300) H 12/13/16 22:07 Free T4 1.20 ng/dL (0.78-2.19) 12/14/16 07:08 TSH 3rd Generation 1.94 mIU/L (0.46-4.68) 12/14/16 03:45 - Hospital Course Hospital Course: Upon admission 66 year old male with medical history significant for insulin dependent diabetes mellitus, hypertension, hyperlipidemia, left diabetic foot ulcer, and BPH who presents to the emergency department accompanied by his daughter for multiple episodes of emesis and abdominal pain. Patient reports the vomiting began around 6 am when he was getting ready to go to [facility] for wound care of his left foot. Daughter present at bedside states patient had 7 episodes of emesis, [id number] in color and streaked with blood during one episode. Patient admits to epigastric abdominal pain, 8/10 intensity, sharp in quality and intermittent. He denies diarrhea and states he had a non-bloody, normal bowel movement yesterday and denies melanic stool. He has no history of recent travel, denies sick contacts, fever, and chills. Patient also denies chest pain, shortness of breath, palpitations, and lower extremity swelling. He admits to pain, decreased sensation, and paresthesias of bilateral feet. Patient and daughter report extensive procedures to left foot (see surgical history). Patient admits to previous history of alcohol abuse and states his last drink was 6 years ago. Patient was admitted to the floors. Patient's lipase was 951 on admission and amylase was 104. CT abdomen pelvis showed Diverticulosis without definite CT evidence of diverticulitis and nonspecific bladder wall thickening. Patient was kept NPO on fluids and BUN was monitored which was trending down. Dr Barrientos podiatry was consulted regarding the diabetic foot ulcer and wound care was also on board. When patient's diet was able to be advanced and as his BUN continued to trend down and he had clinically improved, patient was deemed medically stable for discharge. 1) Acute pancreatitis: resolved 2) DM: discharged on appropriate medications 3) HTN: discharged on appropriate medications 4) Hyperlipidemia: discharged on appropriate medications 5) BPH: discharged on appropriate medications Upon Discharge Patient stable for discharge home as per Dr. Hogan Patient to resume all home medications. Patient to follow up with PMD Dr. Hogan within 1 week. Address: [address] [place] [address] [address] [place] [address] If symptoms persist or worsen patient to visit ER immediately. Instructions discussed in detail with patient who understands and agrees. Discharge Exam - Head Exam Head Exam: ATRAUMATIC, NORMAL INSPECTION, NORMOCEPHALIC - Eye Exam Eye Exam: EOMI, Normal appearance, PERRL. absent: Conjunctival injection, Scleral icterus Pupil Exam: NORMAL ACCOMODATION - ENT Exam ENT Exam: Mucous Membranes Moist - Neck Exam Neck exam: Full Rom, Normal Inspection Additional comments: 3x3 nonfluctuant nontender nonerythematous swelling noted on posterior aspect of patient"s neck - Respiratory Exam Respiratory Exam: Clear to PA & Lateral, NORMAL BREATHING PATTERN. absent: Accessory Muscle Use, Rales, Rhonchi, Wheezes, Respiratory Distress - Cardiovascular Exam Cardiovascular Exam: REGULAR RHYTHM, RRR, +S1, +S2 - GI/Abdominal Exam GI & Abdominal Exam: Normal Bowel Sounds, Soft. absent: Firm, Guarding, Rigid, Tenderness - Extremities Exam Extremities exam: normal capillary refill, pedal pulses present Additional comments: L foot dressings c/d/i - Back Exam Back exam: NORMAL INSPECTION. absent: rash noted - Neurological Exam Neurological exam: Alert, CN II-XII Intact, Oriented x3 - Psychiatric Exam Psychiatric exam: Normal Affect, Normal Mood - Skin Skin Exam: Dry, Intact, Normal Color, Warm Discharge Plan - Follow Up Plan Condition: STABLE Disposition: HOME/ ROUTINE Instructions: Pancreatitis (DC), Heart Healthy Diet (DC), Acute Abdominal Pain (DC), Acute Abdominal Pain (GEN), Cellulitis (DC), Cellulitis (GEN) Additional Instructions: Patient stable for discharge home as per Dr. Hogan Patient to resume all home medications. Patient to follow up with PMD Dr. Hogan within 1 week. Address: [address] [place] [address] [address] [place] [address] If symptoms persist or worsen patient to visit ER immediately. Instructions discussed in detail with patient who understands and agrees. Referrals: Gurpreet Hogan Jr., MD [Medical Doctor] -
[2016-12-15 16:09] VITALS: BP 165/86; PULSE 82; RESP 20; TEMP 98.1; O2SAT 99
--- NOTE | 2016-12-15 18:35 | CARD ---
APPROVED REPORT EKG Measurement Heart [id number] <Conclusion> Normal sinus rhythm Possible Left atrial enlargement Incomplete right bundle branch block Prolonged QT Abnormal ECG
== END 2016-12-15 11:55 | disposition home or self-care (01) | DRG 204 ==
LOC: C.ER 21:25 → C.5T 12-14 02:00 → C.6T 12-14 02:00
PROVIDERS: ADMIT Internal Medicine; ATTEND Internal Medicine
DX: K85.20 Alcohol induced acute pancreatitis without necrosis or infection (principal); E11.621 Type 2 diabetes mellitus with foot ulcer; L97.529 Non-pressure chronic ulcer of other part of left foot with unspecified severity; F10.21 Alcohol dependence, in remission; Z79.4 Long term (current) use of insulin; I10 Essential (primary) hypertension; N40.0 Benign prostatic hyperplasia without lower urinary tract symptoms; E78.5 Hyperlipidemia, unspecified; Z91.81 History of falling

== ENCOUNTER 2017-02-13 08:21 | Inpatient (IN) | payer MEDICAID ==
[2017-02-13 08:32] VITALS: BMI 33.0
[2017-02-13] MEDS ORDERED: Sodium Chloride 0.9% 1,000 ML IV ONE ×2 (09:09→10:20)
--- NOTE | 2017-02-13 09:13 | C.PDOC ---
History Of Present Illness 66-year-old male, PMHx includes Hypertension and NIDDM, presents to the emergency department with complaints of right occipital headache, that he developed last night. States pain is reproducible, and associated with mild nausea. pain is constant, reproducible, moderate, dull. Patient sts, had similar pain in past over opposite site- left occipital scalp " when was told I have some blood supply problem to head". Patient denies fevers, chills, recent illness, visual changes, focal deficit, neck pain, CP, SOB, dyspnea, wheezing, palpitation, diaphoresis, abd. pain, nausea, vomiting, denies weakness, sensory or vascular deficits to B/L LEs. Ambulate to Ed for evaluation, not in any apparent distress. Time Seen by Provider: 02/13/17 08:48 Chief Complaint (Nursing): Headache History Per: Patient History/Exam Limitations: no limitations Current Symptoms Are (Timing): Still Present Severity: Moderate Past Medical History Reviewed: Historical Data, Nursing Documentation, Vital Signs Vital Signs: Last Vital Signs Temp 97.7 F 02/13/17 17:20 Pulse 60 02/13/17 17:20 Resp 20 02/13/17 17:20 BP 186/79 H 02/13/17 18:19 Pulse Ox 98 02/13/17 17:20 - Medical History PMH: Diabetes, HTN, Hypercholesterolemia - [facility] Procedures CLOSED BIOPSY OF SKIN AND SUBCUTANEOUS TISSUE (12/09/14) DEBRIDEMENT OF NAIL, NAIL BED OR NAIL FOLD (03/03/15) DRAINAGE OF LEFT LOWER LEG SKIN, EXTERNAL APPROACH (09/09/16) EXCISION OF L FOOT SUBCU/FASCIA, OPEN APPROACH (09/09/16) FOOT & TOE JOINT BIOPSY (12/09/14) INSERTION OF INFUSION DEV INTO SUP VENA CAVA, PERC APPROACH (08/21/16) NONEXCIS DEBRID OF WOUND, INFECT, OR BURN (11/22/14) OTHER LOCAL DESTRUC SKIN (01/22/15) ULTRASONOGRAPHY OF SUPERIOR VENA CAVA, GUIDANCE (08/21/16) Family History: States: No Known Family Hx - Social History Hx Tobacco Use: No Hx Alcohol Use: No Hx Substance Use: No - Immunization History Hx Tetanus Toxoid Vaccination: Yes Hx Influenza Vaccination: Yes (04/2016) Hx Pneumococcal Vaccination: Yes (2012) Review Of Systems Except As Marked, All Systems Reviewed And Found Negative. Constitutional: Negative for: Fever, Chills Cardiovascular: Negative for: Chest Pain Respiratory: Negative for: Shortness of Breath Gastrointestinal: Positive for: Nausea Neurological: Positive for: Headache. Negative for: Weakness, Numbness, Dizziness Physical Exam - Physical Exam Appears: Well, Non-toxic, No Acute Distress Skin: Warm, Dry, No Rash Head: Atraumatic, Tenderness (Mild, right occipital) Eye(s): bilateral: Normal Inspection, PERRL, EOMI Nose: No Flaring Oral Mucosa: Moist Lips: Normal Appearing Neck: No Midline Cervical Tenderness, No Paracervical Tenderness, No Step Off Deformity, Supple, Other ((-) carotid bruit B/L) Cardiovascular: Rhythm Regular, No Murmur, No JVD Respiratory: No Accessory Muscle Use, No Stridor, No Wheezing Gastrointestinal/Abdominal: Soft, No Tenderness Back: No CVA Tenderness Extremity: Normal ROM, No Pedal Edema Neurological/Psych: Oriented x3, Normal Speech, Normal Motor, Normal Sensation, Normal Reflexes ED Course And Treatment - Laboratory Results Result Diagrams: 02/13/17 09:32 02/13/17 09:32 Lab Interpretation: Abnormal O2 Sat by Pulse Oximetry: 99 Pulse Ox Interpretation: Normal - CT Scan/US CT head w/o contrast Other Rad Studies (CT/US): Radiology Report Reviewed CT/US Interpretation: Accession No. : [id number]. Patient Name / ID : OCTAVIO IVEY / [id number]. Exam Date : 02/13/2017 09:49:50 ( Approved ). Study Comment : Sex / Age : M / 66Y. Creator : Robby Escobar MD. Dictator : Robby Escobar MD. Manager Strategic : Theatrical Performer : Robby Escobar MD. Approver2 : Report Date : 02/13/2017 11:12:45. My Comment : . PROCEDURE: CT HEAD WITHOUT CONTRAST. HISTORY: occipital headache. COMPARISON : None available. TECHNIQUE: Axial computed tomography images were obtained through the head/brain without intravenous contrast. Radiation dose: Total exam DLP = 912.95 mGy-cm. This CT exam was performed using one or more of the following dose reduction techniques: Automated exposure control, adjustment of the mA and/or kV according to patient size, and/or use of iterative reconstruction technique. FINDINGS: HEMORRHAGE: No acute parenchymal, subarachnoid nor extra-axial hemorrhage. BRAIN: Mild chronic periventricular white matter ischemic changes. Minor vascular calcifications are present. No obvious parenchymal nor extra-axial mass or collection seen on this noncontrast study. Moderate generalized volume loss. VENTRICLES: No evidence of obstructive hydrocephalus. CALVARIUM: No acute calvarial fractures. PARANASAL SINUSES: Visualized paranasal sinuses are well-developed. No fluid levels seen to suggest acute sinusitis. Minimal mucosal thickening noted within multiple on ethmoid air cells. MASTOID AIR CELLS: Unremarkable as visualized. No inflammatory changes. OTHER FINDINGS: Changes of bilateral cataract surgery. IMPRESSION: No acute intracranial hemorrhage. Mild chronic periventricular white matter ischemic changes. Moderate generalized volume loss. Progress Note: Pt was OBS in ED for 5 hours and remained unchanged during ED evaluation. Afebrile, hemodynamicaly stable. Non-toxic. PulsEOx 97% rA. Neck : Supple, (-) JVD, (-) carotid bruits. ENT: no acute findings. Lungs: CTA B/L , BS equal B/L. CVS: (+)S1S2, reg. Abd: benign. Neurologicaly intact. Diagnostics and imaging reviewed. Pt still complains of headache. Case discussed with ED attending and admission recommend. Case discussed with hospitalist convention services director, Dr. Samantha Lerma, and will admit pt under his service to OBS with further neuro consult and MRI. Disposition Counseled Patient/Family Regarding: Studies Performed, Diagnosis, Need For Followup - Disposition Disposition: HOSPITALIZED Disposition Time: 14:02 Condition: STABLE - Clinical Impression Clinical Impression: Headache, Hyperglycemia, Essential (primary) hypertension - Scribe Statement The provider has reviewed the documentation as recorded by the Scribe (Alejandra Moreno) All medical record entries made by the Scribe were at my direction and personally dictated by me. I have reviewed the chart and agree that the record accurately reflects my personal performance of the history, physical exam, medical decision making, and the department course for this patient. I have also personally directed, reviewed, and agree with the discharge instructions and disposition.
[2017-02-13 09:47] LABS: POTASSIUM 4.7 mmol/L (3.6-5.2)
[2017-02-13 09:49] LABS: BILIRUBIN,TOTAL 0.5 mg/dL (0.2-1.3)
[2017-02-13 09:50] LABS: ALB/GLOB RATIO 0.9 (1.0-2.1); CALCIUM 8.6 mg/dl (8.6-10.4)
[2017-02-13 09:55] LABS: RBC URINE 2 /hpf (0-3); URINE BILIRUBIN NEGATIVE (NEGATIVE); URINE BLOOD NEGATIVE (NEGATIVE); URINE COLOR Yellow (YELLOW); URINE GLUCOSE (UA) 3+ mg/dL (Normal); URINE KETONE NEGATIVE (NEGATIVE); URINE LEUKOCYTE ESTERASE NEG Leu/uL (Negative); URINE PROTEIN 3+ mg/dL (NEGATIVE); URINE UROBILINOGEN NORMAL mg/dL (0.2-1.0); WBC URINE 2 /hpf (0-5)
[2017-02-13 09:56] LABS: BASO # 0.1 K/uL (0.0-0.2); BASO % 0.7 % (0.0-2.0); EOS # 1.7 K/uL (0.0-0.7); EOS % 17.5 % (0.0-4.0); HEMATOCRIT 39.1 % (35.0-51.0); LYMPH % 20.9 % (20.0-40.0); MEAN CELL VOLUME 79.1 fL (80.0-94.0); MEAN CORPUSCULAR HEMOGLOBIN 25.6 pg (27.0-31.0); MEAN CORPUSCULAR HGB CONC 32.3 g/dL (33.0-37.0); MEAN PLATELET VOLUME 9.1 fL (7.2-11.7); MONO # 0.6 K/uL (0.0-0.8); MONO % 6.4 % (0.0-10.0); RED CELL DISTRIBUTION WIDTH 14.5 % (11.5-14.5); WHITE BLOOD COUNT 9.5 K/uL (4.8-10.8)
--- NOTE | 2017-02-13 11:15 | CT ---
PROCEDURE: CT HEAD WITHOUT CONTRAST. HISTORY: occipital headache COMPARISON: None available. TECHNIQUE: Axial computed tomography images were obtained through the head/brain without intravenous contrast. Radiation dose: Total exam DLP = 912.95 mGy-cm. This CT exam was performed using one or more of the following dose reduction techniques: Automated exposure control, adjustment of the mA and/or kV according to patient size, and/or use of iterative reconstruction technique. FINDINGS: HEMORRHAGE: No acute parenchymal, subarachnoid nor extra-axial hemorrhage. BRAIN: Mild chronic periventricular white matter ischemic changes. Minor vascular calcifications are present. No obvious parenchymal nor extra-axial mass or collection seen on this noncontrast study. Moderate generalized volume loss. VENTRICLES: No evidence of obstructive hydrocephalus CALVARIUM: No acute calvarial fractures. PARANASAL SINUSES: Visualized paranasal sinuses are well-developed. No fluid levels seen to suggest acute sinusitis. Minimal mucosal thickening noted within multiple on ethmoid air cells. MASTOID AIR CELLS: Unremarkable as visualized. No inflammatory changes. OTHER FINDINGS: Changes of bilateral cataract surgery. IMPRESSION: No acute intracranial hemorrhage. Mild chronic periventricular white matter ischemic changes. Moderate generalized volume loss.
[2017-02-13] MEDS ORDERED: Labetalol 25mg/5ml Syringe IVP STA (12:34)
[2017-02-13] MEDS ORDERED: Labetalol 25mg/5ml Syringe ONE (13:10)
[2017-02-13] MEDS ORDERED: Aspirin 325 mg EC Tablets PO STA (14:31)
[2017-02-13] MEDS ORDERED: Aspirin 325 mg EC Tablets PO ONE (14:38)
--- NOTE | 2017-02-13 15:24 | CP.PCM.HP ---
History of Present Illness - History of Present Illness History of Present Illness: 66 years old male patient with past medical history of diabetes, hypertension, hypercholesterolemia presented to the emergency department with complaint of right-sided occipital headache since last night. Pain is moderate, constant, reproducible. Patient states that he had similar pain over the left occipital area in the past and he was told that it is because of blood supply problem to brain. Pain is also associated with nausea. No fever, chest pain, visual changes, abdominal pain. No any limb weakness, sensory or vascular deficit to extremities. No shortness of breath, wheezing, palpitation, neck pain Present on Admission - Present on Admission Any Indicators Present on Admission: No Past Patient History - Past Medical History & Family History Past Medical History?: Yes - Past Social History Smoking Status: Never Smoked - CARDIAC Hx Hypercholesterolemia: Yes Hx Hypertension: Yes - PULMONARY Hx Respiratory Disorders: No - NEUROLOGICAL Hx Neurological Disorder: No - HEENT Hx HEENT Problems: No - RENAL Hx Chronic Kidney Disease: No - ENDOCRINE/METABOLIC Hx Diabetes Mellitus Type 2: Yes - HEMATOLOGICAL/ONCOLOGICAL Hx Blood Disorders: No Hx Blood Transfusions: No - INTEGUMENTARY Hx Dermatological Problems: Yes Hx Cellulitis: Yes (RIGHT FOOT ) - MUSCULOSKELETAL/RHEUMATOLOGICAL Hx Musculoskeletal Disorders: No Hx Falls: Yes - GASTROINTESTINAL Hx Gastrointestinal Disorders: No - GENITOURINARY/GYNECOLOGICAL Hx Genitourinary Disorders: No - PSYCHIATRIC Hx Substance Use: No - SURGICAL HISTORY Hx Surgeries: Yes Other/Comment: debridement right foot 2014. DEBRIDEMENT LT.FOOT 08/2016 - ANESTHESIA Hx Anesthesia: Yes Hx Anesthesia Reactions: No Hx Malignant Hyperthermia: No Meds Allergies/Adverse Reactions: Allergies Allergy/AdvReac Type Severity Reaction Status Date / Time shrimp Allergy RASH Verified 02/13/17 08:23 Results - Vital Signs Recent Vital Signs: Last Vital Signs Temp 97.8 F 02/13/17 08:25 Pulse 63 02/13/17 13:45 Resp 20 02/13/17 13:45 BP 129/74 02/13/17 13:45 Pulse Ox 99 02/13/17 14:56 - Labs Result Diagrams: 02/15/17 07:26 02/15/17 07:26 Assessment & Plan (1) Abdominal pain Status: Acute (2) Abnormal CXR Status: Acute (3) Acute pancreatitis Status: Acute (4) Cellulitis of foot, left Status: Acute (5) Diabetic foot ulcer Status: Acute (6) Headache Status: Acute (7) Hyperglycemia Status: Acute (8) Medication refill Status: Acute (9) Pulmonary nodules Status: Acute (10) Diabetic neuropathy Status: Chronic (11) Essential (primary) hypertension Status: Chronic (12) Mixed hyperlipidemia Status: Chronic (13) Type 2 diabetes mellitus with hyperglycemia Status: Chronic - Assessment and Plan (Free Text) Plan: Labs and meds reviewed CT scan of the head report noted Continue same Neuro check Accu-Cheks Insulin Aspirin Blood pressure control Tylenol labs next a.m.
[2017-02-13 17:27] VITALS: RESP 20
[2017-02-13] MEDS: (Lantus) Insulin Glargine, Recombinant SC SCH (21:46)
[2017-02-13] MEDS: (Novolog) Insulin Aspart, Recombinant 100 u/ml 10 ml vial SC SCH (21:47)
[2017-02-13] MEDS ORDERED: (Novolog) Insulin Aspart, Recombinant 100 u/ml 10 ml vial SC SCH (22:00)
[2017-02-14] MEDS: (Novolog) Insulin Aspart, Recombinant 100 u/ml 10 ml vial SC SCH ×4 (08:11→21:45)
[2017-02-14] MEDS: Enoxaparin 40 mg Syringe SC SCH (09:27)
[2017-02-14] MEDS: Pantoprazole 40 mg EC Tab PO SCH (09:28)
[2017-02-14] MEDS: (Lantus) Insulin Glargine, Recombinant SC SCH ×2 (10:30→21:44)
--- NOTE | 2017-02-14 17:30 | CP.PCM.PN ---
Subjective - Date & Time of Evaluation Date of Evaluation: 02/14/17 Time of Evaluation: 10:00 - Subjective Subjective: clinically same Objective - Vital Signs/Intake and Output Vital Signs (last 24 hours): Temp Pulse Resp BP Pulse Ox 97.7 F 56 L 20 133/77 99 02/14/17 16:00 02/14/17 16:44 02/14/17 16:00 02/14/17 16:44 02/14/17 16:00 - Medications Medications: Current Medications Acetaminophen (Tylenol 325mg Tab) 325 mg PO Q4H PRN PRN Reason: Pain, Mild (1-3) Enalapril Maleate (Vasotec) 20 mg PO DAILY [facility] Last Admin: 02/14/17 09:28 Dose: 20 mg Enoxaparin Sodium (Lovenox) 40 mg SC DAILY [facility] Last Admin: 02/14/17 09:27 Dose: 40 mg Gabapentin (Neurontin) 300 mg PO Q8H [facility] Last Admin: 02/14/17 17:20 Dose: 300 mg Insulin Aspart (Novolog) 0 unit SC ACHS [facility] PRN Reason: Protocol Last Admin: 02/14/17 11:53 Dose: 2 unit Insulin Glargine (Lantus) 30 unit SC Q12 [facility] Last Admin: 02/14/17 10:30 Dose: Not Given Metformin HCl (Glucophage) 500 mg PO BID [facility] Last Admin: 02/14/17 17:20 Dose: 500 mg Pantoprazole Sodium (Protonix Ec Tab) 40 mg PO DAILY [facility] Last Admin: 02/14/17 09:28 Dose: 40 mg Pneumococcal Polyvalent Vaccine (Pneumovax 23 Vaccine) 0.5 ml IM .ONCE ONE Stop: 02/15/17 10:01 Rosuvastatin Calcium (Crestor) 5 mg PO HS [facility] Tamsulosin HCl (Flomax) 0.4 mg PO DAILY [facility] Last Admin: 02/14/17 09:27 Dose: 0.4 mg Tramadol HCl (Ultram) 50 mg PO Q6 PRN PRN Reason: Pain, moderate (4-7) Last Admin: 02/14/17 12:49 Dose: 50 mg Zolpidem Tartrate (Ambien) 5 mg PO HS [facility] - Labs Labs: PT 11.0 SECONDS (9.7-12.2) 02/13/17 09:32 INR 1.0 02/13/17 09:32 APTT 32 SECONDS (21-34) 02/13/17 09:32 - Constitutional Appears: Well - Head Exam Head Exam: ATRAUMATIC, NORMAL INSPECTION, NORMOCEPHALIC - Eye Exam Eye Exam: EOMI, Normal appearance, PERRL Pupil Exam: NORMAL ACCOMODATION, PERRL - ENT Exam ENT Exam: Mucous Membranes Moist, Normal Exam - Neck Exam Neck Exam: Full ROM, Normal Inspection. absent: Lymphadenopathy - Respiratory Exam Respiratory Exam: Decreased Breath Sounds - Cardiovascular Exam Cardiovascular Exam: REGULAR RHYTHM, +S1, +S2 - GI/Abdominal Exam GI & Abdominal Exam: Soft, Diminished Bowel Sounds - Rectal Exam Rectal Exam: Deferred Assessment and Plan (1) Abdominal pain Status: Acute (2) Abnormal CXR Status: Acute (3) Acute pancreatitis Status: Acute (4) Cellulitis of foot, left Status: Acute (5) Diabetic foot ulcer Status: Acute (6) Headache Status: Acute (7) Hyperglycemia Status: Acute (8) Medication refill Status: Acute (9) Pulmonary nodules Status: Acute (10) Diabetic neuropathy Status: Chronic (11) Essential (primary) hypertension Status: Chronic (12) Mixed hyperlipidemia Status: Chronic (13) Type 2 diabetes mellitus with hyperglycemia Status: Chronic - Assessment and Plan (Free Text) Plan: Patient afebrile Clinically better Continue as ordered Accu-Cheks Insulin Metformin Lovenox Blood pressure control Ambien Labs
[2017-02-15 00:12] VITALS: O2SAT 98
[2017-02-15 07:36] LABS: BASO # 0.1 K/uL (0.0-0.2); BASO % 0.9 % (0.0-2.0); EOS # 1.7 K/uL (0.0-0.7); EOS % 18.7 % (0.0-4.0); HEMATOCRIT 36.3 % (35.0-51.0); LYMPH # 2.6 K/uL (1.0-4.3); LYMPH % 29.3 % (20.0-40.0); MEAN CELL VOLUME 78.7 fL (80.0-94.0); MEAN PLATELET VOLUME 8.7 fL (7.2-11.7); MONO # 0.7 K/uL (0.0-0.8); MONO % 7.5 % (0.0-10.0); NRBC % 0.1 % (0.0-2.0)
[2017-02-15 07:57] LABS: CHLORIDE 97 mmol/L (98-107); POTASSIUM 4.4 mmol/L (3.6-5.2); SODIUM 133 mmol/L (132-148)
[2017-02-15 07:59] LABS: AST/SGOT 21 U/L (17-59); BILIRUBIN,TOTAL 0.4 mg/dL (0.2-1.3); CARBON DIOXIDE 26 mmol/L (22-30); GFR AFRICAN-AMERICAN > 60
[2017-02-15 08:00] LABS: ALKALINE PHOSPHATASE 101 U/L (38-126); ALT/SGPT 28 U/L (21-72); BLOOD UREA NITROGEN 24 mg/dL (9-20); CALCIUM 8.1 mg/dl (8.6-10.4); GLUCOSE,RANDOM 281 mg/dL (75-110)
[2017-02-15] MEDS: (Novolog) Insulin Aspart, Recombinant 100 u/ml 10 ml vial SC SCH ×3 (08:23→18:01)
[2017-02-15 09:10] LABS: ALB/GLOB RATIO 0.9 (1.0-2.1)
[2017-02-15] MEDS: Enoxaparin 40 mg Syringe SC SCH (09:46)
[2017-02-15] MEDS: Pantoprazole 40 mg EC Tab PO SCH (09:47)
[2017-02-15] MEDS ORDERED: Pneumococcal 23-Valent Vaccine IM ONE (10:00)
[2017-02-15] MEDS: (Lantus) Insulin Glargine, Recombinant SC SCH (10:30)
[2017-02-15 16:55] VITALS: BP 189/86; PULSE 58; TEMP 97.7
--- NOTE | 2017-02-15 17:11 | CP.PCM.PN ---
Subjective - Date & Time of Evaluation Date of Evaluation: 02/15/17 Time of Evaluation: 09:00 - Subjective Subjective: clinically same Objective - Vital Signs/Intake and Output Vital Signs (last 24 hours): Temp Pulse Resp BP Pulse Ox 97.7 F 58 L 20 189/86 H 98 02/15/17 15:00 02/15/17 15:00 02/15/17 15:00 02/15/17 15:00 02/15/17 15:00 Intake and Output: 02/15/17 02/15/17 06:59 18:59 Intake Total 300 240 Balance 300 240 - Medications Medications: Current Medications Acetaminophen (Tylenol 325mg Tab) 325 mg PO Q4H PRN PRN Reason: Pain, Mild (1-3) Enalapril Maleate (Vasotec) 20 mg PO DAILY [facility] Last Admin: 02/15/17 12:33 Dose: 20 mg Enoxaparin Sodium (Lovenox) 40 mg SC DAILY [facility] Last Admin: 02/15/17 09:46 Dose: 40 mg Gabapentin (Neurontin) 300 mg PO Q8H [facility] Last Admin: 02/15/17 09:46 Dose: 300 mg Insulin Aspart (Novolog) 0 unit SC ACHS [facility] PRN Reason: Protocol Last Admin: 02/15/17 12:08 Dose: Not Given Insulin Glargine (Lantus) 30 unit SC Q12 [facility] Last Admin: 02/15/17 10:30 Dose: 30 unit Metformin HCl (Glucophage) 500 mg PO BID [facility] Last Admin: 02/15/17 09:47 Dose: 500 mg Pantoprazole Sodium (Protonix Ec Tab) 40 mg PO DAILY [facility] Last Admin: 02/15/17 09:47 Dose: 40 mg Rosuvastatin Calcium (Crestor) 5 mg PO HS [facility] Last Admin: 02/14/17 21:41 Dose: 5 mg Tamsulosin HCl (Flomax) 0.4 mg PO DAILY [facility] Last Admin: 02/15/17 09:47 Dose: 0.4 mg Tramadol HCl (Ultram) 50 mg PO Q6 PRN PRN Reason: Pain, moderate (4-7) Last Admin: 02/14/17 12:49 Dose: 50 mg Zolpidem Tartrate (Ambien) 5 mg PO HS [facility] Last Admin: 02/14/17 21:41 Dose: 5 mg - Labs Labs: 02/15/17 07:26 02/15/17 07:26 PT 11.0 SECONDS (9.7-12.2) 02/13/17 09:32 INR 1.0 02/13/17 09:32 APTT 32 SECONDS (21-34) 02/13/17 09:32 - Constitutional Appears: Well - Head Exam Head Exam: ATRAUMATIC, NORMAL INSPECTION, NORMOCEPHALIC - Eye Exam Eye Exam: EOMI, Normal appearance, PERRL Pupil Exam: NORMAL ACCOMODATION, PERRL - ENT Exam ENT Exam: Mucous Membranes Moist, Normal Exam - Neck Exam Neck Exam: Full ROM, Normal Inspection. absent: Lymphadenopathy - Respiratory Exam Respiratory Exam: Decreased Breath Sounds - Cardiovascular Exam Cardiovascular Exam: REGULAR RHYTHM, +S1, +S2 - GI/Abdominal Exam GI & Abdominal Exam: Soft, Diminished Bowel Sounds - Rectal Exam Rectal Exam: Deferred Assessment and Plan (1) Abdominal pain Status: Acute (2) Abnormal CXR Status: Acute (3) Acute pancreatitis Status: Acute (4) Cellulitis of foot, left Status: Acute (5) Diabetic foot ulcer Status: Acute (6) Headache Status: Acute (7) Hyperglycemia Status: Acute (8) Medication refill Status: Acute (9) Pulmonary nodules Status: Acute (10) Diabetic neuropathy Status: Chronic (11) Essential (primary) hypertension Status: Chronic (12) Mixed hyperlipidemia Status: Chronic (13) Type 2 diabetes mellitus with hyperglycemia Status: Chronic - Assessment and Plan (Free Text) Plan: Patient afebrile No acute event overnight No headache Clear for discharge Continue as ordered Follow-up in office in 1 week Return to ED if symptom recurs
--- NOTE | 2017-02-15 17:32 | CP.PCM.PN ---
Subjective - Date & Time of Evaluation Date of Evaluation: 02/15/17 Time of Evaluation: 17:33 - Subjective Subjective: Alert, awake, no acute distress. Objective - Vital Signs/Intake and Output Vital Signs (last 24 hours): Temp Pulse Resp BP Pulse Ox 97.7 F 58 L 20 189/86 H 98 02/15/17 15:00 02/15/17 15:00 02/15/17 15:00 02/15/17 15:00 02/15/17 15:00 Intake and Output: 02/15/17 02/15/17 06:59 18:59 Intake Total 300 240 Balance 300 240 - Medications Medications: Current Medications Acetaminophen (Tylenol 325mg Tab) 325 mg PO Q4H PRN PRN Reason: Pain, Mild (1-3) Enalapril Maleate (Vasotec) 20 mg PO DAILY [facility] Last Admin: 02/15/17 12:33 Dose: 20 mg Enoxaparin Sodium (Lovenox) 40 mg SC DAILY [facility] Last Admin: 02/15/17 09:46 Dose: 40 mg Gabapentin (Neurontin) 300 mg PO Q8H [facility] Last Admin: 02/15/17 09:46 Dose: 300 mg Insulin Aspart (Novolog) 0 unit SC ACHS [facility] PRN Reason: Protocol Last Admin: 02/15/17 12:08 Dose: Not Given Insulin Glargine (Lantus) 30 unit SC Q12 [facility] Last Admin: 02/15/17 10:30 Dose: 30 unit Metformin HCl (Glucophage) 500 mg PO BID [facility] Last Admin: 02/15/17 09:47 Dose: 500 mg Pantoprazole Sodium (Protonix Ec Tab) 40 mg PO DAILY [facility] Last Admin: 02/15/17 09:47 Dose: 40 mg Rosuvastatin Calcium (Crestor) 5 mg PO HS [facility] Last Admin: 02/14/17 21:41 Dose: 5 mg Tamsulosin HCl (Flomax) 0.4 mg PO DAILY [facility] Last Admin: 02/15/17 09:47 Dose: 0.4 mg Tramadol HCl (Ultram) 50 mg PO Q6 PRN PRN Reason: Pain, moderate (4-7) Last Admin: 02/14/17 12:49 Dose: 50 mg Zolpidem Tartrate (Ambien) 5 mg PO HS [facility] Last Admin: 02/14/17 21:41 Dose: 5 mg - Labs Labs: 02/15/17 07:26 02/15/17 07:26 PT 11.0 SECONDS (9.7-12.2) 02/13/17 09:32 INR 1.0 02/13/17 09:32 APTT 32 SECONDS (21-34) 02/13/17 09:32 Assessment and Plan - Assessment and Plan (Free Text) Assessment: Patient admitted with complaints of headache, hypertention, seen and examined. Alert, awake, no acute distress. Cleared by DR Samantha Lerma for discharge home and follow up in the office in 1 week. Advised to continue with present medications.
== END 2017-02-15 19:55 | disposition home or self-care (01) | DRG 134 ==
LOC: C.ER 08:21 → C.9E 14:23 → C.3T 15:36 → OBSVTOIN 02-14 15:13
PROVIDERS: ADMIT Internal Medicine Nephrology; ATTEND Internal Medicine Nephrology
DX: I10 Essential (primary) hypertension (principal); E11.65 Type 2 diabetes mellitus with hyperglycemia; E78.00 Pure hypercholesterolemia, unspecified; R51 Headache

== ENCOUNTER 2018-06-26 10:41 | Inpatient (IN) | payer MEDICAID, MEDICARE, OTHER ==
[2018-06-26 10:42] VITALS: BMI 20.7
[2018-06-26 11:24] LABS: BASO # 0.1 K/uL (0.0-0.2); BASO % 0.9 % (0.0-2.0); EOS # 0.8 K/uL (0.0-0.7); EOS % 9.1 % (0.0-4.0); HEMOGLOBIN 10.8 g/dL (12.0-18.0); LYMPH # 1.9 K/uL (1.0-4.3); LYMPH % 22.6 % (20.0-40.0); MEAN CELL VOLUME 79.9 fL (80.0-94.0); MEAN CORPUSCULAR HEMOGLOBIN 26.4 pg (27.0-31.0); MEAN PLATELET VOLUME 7.9 fL (7.2-11.7); MONO # 0.7 K/uL (0.0-0.8); MONO % 8.3 % (0.0-10.0); NEUT # 5.1 K/uL (1.8-7.0); NEUT % 59.1 % (50.0-75.0); RBC 4.1 Mil/uL (4.40-5.90); RED CELL DISTRIBUTION WIDTH 14.7 % (11.5-14.5); WHITE BLOOD COUNT 8.6 K/uL (4.8-10.8)
[2018-06-26 11:39] LABS: ALB/GLOB RATIO 0.9 (1.0-2.1); ALBUMIN 3.2 g/dL (3.5-5.0); CALCIUM 8.1 mg/dl (8.6-10.4)
[2018-06-26 13:39] LABS: PROTHROMBIN TIME 11.1 SECONDS (9.7-12.2)
--- NOTE | 2018-06-26 13:39 | RAD ---
Date of service: 06/26/2018 HISTORY: r/o infitrate COMPARISON: 12/14/2016. FINDINGS: LUNGS: The lungs are well inflated and clear. PLEURA: No pleural effusions or pneumothorax. CARDIOVASCULAR: The heart is normal in size. No aortic atherosclerotic calcification present. OSSEOUS STRUCTURES: Within normal limits for the patient's age. VISUALIZED UPPER ABDOMEN: Normal. OTHER FINDINGS: None. IMPRESSION: No active pulmonary disease.
--- NOTE | 2018-06-26 13:43 | CP.PCM.HP ---
<Krystian Witt - Last Filed: 06/26/18 15:19> History of Present Illness - History of Present Illness History of Present Illness: PGY-1 H&P for Dr. Momin's service CC: foot blisters HPI: Patient is a 67 yo male with PMH significant for chronic anemia, HTN, CKD, uncontrolled DM w/ neuropathy, foot ulcers, and hyperlipidemia is admitted to hospital for evaluation of bilateral diabetic foot ulcers as referred by Dr. Barrientos. Patient states that he has been in the custodial for about a month s/p previous admission for foot ulcer continued treatment. Patient admits that his foot ulcer in custodial has not been healing for about a month and at which point Dr. Barrientos stated the patient go to hospital for further treatment. Patient denies any pain in his feet and states he uses a cane for ambulation with no difficulty. Patient states he completed his previous treatment for bilateral foot ulcer with Cefepime/Zyvox but still the foot ulcer did not heal. Patient states he has bilateral neuropathy both sensation and pain. Patient admits to blurriness in visual field at times but not constant. Patient states he has difficulty initiating urinary stream. Patient denies fevers, chills, chest pain, sob, n/v, constipation, or dysuria. PMH- uncontrolled DM w/neuropathy, HTN, anemia, CKD PSH- Left foot debridement x3, B/L cataract surgeries FH-mother: DM, HTN ; father: DM, HTN Meds- Lispro, Glargine, Tylenol, Milk of Magnesia, Enalapril, Plavix, Allogl iptin, Oxybutynin, Flomax, Protonix, Maalox Allergies- Shrimp (rash) Code- Ful Code PMD- Dr. Moore Present on Admission - Present on Admission Any Indicators Present on Admission: Yes History of Uncontrolled Diabetes: Yes Review of Systems - Constitutional Constitutional: As Per HPI. absent: Headache - EENT Eyes: Blurred Vision Ears: As Per HPI Nose/Mouth/Throat: As Per HPI - Cardiovascular Cardiovascular: Leg Ulcers. absent: Chest Pain, Leg Edema - Respiratory Respiratory: As Per HPI. absent: Wheezing - Gastrointestinal Gastrointestinal: As Per HPI. absent: Abdominal Pain, Nausea - Genitourinary Genitourinary: Urinary Incontinence - Musculoskeletal Musculoskeletal: Numbness - Integumentary Integumentary: Skin Ulcer Additional comments: bilateral foot ulcers - Neurological Neurological: As Per HPI, Numbness - Psychiatric Psychiatric: As Per HPI - Endocrine Endocrine: As Per HPI - Hematologic/Lymphatic Hematologic: As Per HPI Past Patient History - Infectious Disease Hx of Infectious Diseases: None - Past Medical History & Family History Past Medical History?: Yes - Past Social History Smoking Status: Never Smoked Cigar Use: No Alcohol: None Drugs: Denies Home Situation {Lives}: [facility] - CARDIAC Hx Hypercholesterolemia: Yes Hx Hypertension: Yes - PULMONARY Hx Respiratory Disorders: No - NEUROLOGICAL Hx Neurological Disorder: No - HEENT Hx HEENT Problems: No - RENAL Hx Chronic Kidney Disease: No - ENDOCRINE/METABOLIC Hx Diabetes Mellitus Type 2: Yes - HEMATOLOGICAL/ONCOLOGICAL Hx Blood Disorders: No Hx Blood Transfusions: No - INTEGUMENTARY Hx Dermatological Problems: Yes Hx Cellulitis: Yes (BILAT FOOT) - MUSCULOSKELETAL/RHEUMATOLOGICAL Hx Arthritis: Yes (KNEE/ L ANKLE) - GASTROINTESTINAL Hx Gastrointestinal Disorders: No - GENITOURINARY/GYNECOLOGICAL Hx Genitourinary Disorders: No - PSYCHIATRIC Hx Psychophysiologic Disorder: No Hx Substance Use: No - SURGICAL HISTORY Hx Surgeries: Yes Other/Comment: debridement right foot 2014. DEBRIDEMENT LT.FOOT 08/2016 - ANESTHESIA Hx Anesthesia: Yes Hx Anesthesia Reactions: No Hx Malignant Hyperthermia: No Meds Allergies/Adverse Reactions: Allergies Allergy/AdvReac Type Severity Reaction Status Date / Time shrimp Allergy RASH Verified 05/09/18 09:45 Physical Exam - Constitutional Appears: Well, No Acute Distress - Head Exam Head Exam: ATRAUMATIC, NORMOCEPHALIC - Eye Exam Eye Exam: EOMI, Normal appearance Pupil Exam: NORMAL ACCOMODATION, PERRL - Respiratory Exam Respiratory Exam: Clear to Auscultation Bilateral, NORMAL BREATHING PATTERN. absent: Accessory Muscle Use, Rales, Rhonchi, Wheezes - Cardiovascular Exam Cardiovascular Exam: REGULAR RHYTHM, +S1, +S2 - GI/Abdominal Exam GI & Abdominal Exam: Normal Bowel Sounds, Soft. absent: Tenderness - Extremities Exam Extremities exam: Positive for: normal inspection. Negative for: pedal edema Additional comments: bilateral foot ulcers L 2nd toe with black eschar formation, dressing in place R forefoot open blister with no granulation tissue; no oozing draining or pus noted, dressing in place on mid foot - Neurological Exam Neurological exam: Alert, Oriented x3 - Psychiatric Exam Psychiatric exam: Normal Affect, Normal Mood - Skin Skin Exam: Normal Color Results - Vital Signs Recent Vital Signs: Last Vital Signs Temp 97.8 F 06/26/18 13:21 Pulse 65 06/26/18 13:21 Resp 18 06/26/18 13:21 BP 178/84 H 06/26/18 13:21 Pulse Ox 98 06/26/18 13:21 - Labs Result Diagrams: 06/26/18 11:16 06/26/18 11:16 Labs: Laboratory Results - last 24 hr 06/26/18 06/26/18 11:16 11:16 WBC 8.6 RBC 4.10 L Hgb 10.8 L Hct 32.8 L MCV 79.9 L MCH 26.4 L MCHC 33.0 RDW 14.7 H Plt Count 246 MPV 7.9 Neut % (Auto) 59.1 Lymph % (Auto) 22.6 Smyth % (Auto) 8.3 Eos % (Auto) 9.1 H Baso % (Auto) 0.9 Neut # (Auto) 5.1 Lymph # (Auto) 1.9 Smyth # (Auto) 0.7 Eos # (Auto) 0.8 H Baso # (Auto) 0.1 Sodium 136 Potassium 4.4 Chloride 104 Carbon Dioxide 25 Anion Gap 11 BUN 33 H Creatinine 2.0 H Est GFR ( Amer) 41 Est GFR (Non-Af Amer) 34 Random Glucose 104 Calcium 8.1 L Total Bilirubin 0.2 AST 22 ALT 12 L D Alkaline Phosphatase 102 Total Protein 6.5 Albumin 3.2 L Globulin 3.4 Albumin/Globulin Ratio 0.9 L Assessment & Plan - Assessment and Plan (Free Text) Assessment: Patient is 67 year old male with PMH of HTN, CKD, chronic anemia, uncontrolled DM w/ neuropathy, and hypercholesterolemia is admitted to [facility] for bilateral diabetic foot ulcers. Patient was sent to hospital by Dr. Barrientos, podiatry, from home for possible debridement. Plan: Diabetic Foot ulcers Podiatry Consult: Dr. Britni best appreciated B/L Foot xray (06/26): results pending ID consult: Dr. Minoo best appreciated- for antibiotic management CXR (06/26/18): no active disease Insulin dependent diabetes f/u HgA1c f/u Lipid panel ISS Stiglipin 25mg PO qd Lispro 5 unit Glargine 7 unit Hypertension Enalapril 20mg PQ q12 Lipid disorder f/u Lipid panel Renal Insufficiency Nephro consult: Dr. Tae best appreciated Bladder Scan: result pending Renal/Bladder US: result pending f/u free/total PSA Peripheral neuropathy 2/2 diabetes Arterial Duplex (05/10/18): Normal duplex doppler of B/L lower extremity arteries. Plavix 75mg PO qd - on HOLD Chronic Anemia 2/2 diabetes suspecting anemia of chronic disease monitor AM CBC Prophylactic measures GI prophylaxis: none indicated at this time DVT prophylaxis: SCDs b/l, heparin 5,000 units subQ q8h Madkendy Witt PGY-1 Medical management discussed with Dr. Momin <Renetta Momin V - Last Filed: 06/26/18 18:16> Results - Vital Signs Recent Vital Signs: Last Vital Signs Temp 98 F 06/26/18 14:25 Pulse 69 06/26/18 14:25 Resp 17 06/26/18 14:25 BP 214/111 H 06/26/18 18:02 Pulse Ox 100 06/26/18 14:25 - Labs Result Diagrams: 06/26/18 11:16 06/26/18 11:16 Labs: Laboratory Results - last 24 hr 06/26/18 06/26/18 06/26/18 11:16 11:16 13:18 WBC 8.6 RBC 4.10 L Hgb 10.8 L Hct 32.8 L MCV 79.9 L MCH 26.4 L MCHC 33.0 RDW 14.7 H Plt Count 246 MPV 7.9 Neut % (Auto) 59.1 Lymph % (Auto) 22.6 Smyth % (Auto) 8.3 Eos % (Auto) 9.1 H Baso % (Auto) 0.9 Neut # (Auto) 5.1 Lymph # (Auto) 1.9 Smyth # (Auto) 0.7 Eos # (Auto) 0.8 H Baso # (Auto) 0.1 PT 11.1 INR 1.0 APTT 37 H Sodium 136 Potassium 4.4 Chloride 104 Carbon Dioxide 25 Anion Gap 11 BUN 33 H Creatinine 2.0 H Est GFR ( Amer) 41 Est GFR (Non-Af Amer) 34 Random Glucose 104 Calcium 8.1 L Total Bilirubin 0.2 AST 22 ALT 12 L D Alkaline Phosphatase 102 Total Protein 6.5 Albumin 3.2 L Globulin 3.4 Albumin/Globulin Ratio 0.9 L Attending/Attestation - Attestation I have personally seen and examined this patient.: Yes I have fully participated in the care of the patient.: Yes I have reviewed all pertinent clinical information: Yes Notes (Text): Patient seen, examined, case discussed with director of medical staff services. Patient seen in emergency room bed 14. Patient came in from custodial after being seen by podiatry for a blisters that have ruptured. Patient has initially completed IV antibiotics in April patient up both max pain and Zyvox per the EMR. A she does have a history of uncontrolled diabetes as well as hypertension and blood cholesterol. Patient also does have a per history of peripheral neuropathy. He has had a true duplex done in April that was reviewed by Dr. Rivas in the past noted for just medical management. Plavix is being held in case. Dietary is concerning POSS procedure for the patient. Please note there is also been in trending which creatinine has been suddenly increasing between April to June. We have consult to renal in light of this change. Patient noted that when he does try to urinate that the stream is less. We'll check a bladder scan to make sure there is no urinary retention as well as a prostate level to make sure there is no evidence of BPH. Patient did say he took some of his medications prior to coming to the hospital. On we have received his insulin regimen which includes NovoLog 5 units subcutaneous before meals as well as Lantus 7 units at night. As well as renally dosed endoclipped and at 25 mg once a day. Patient does have uncontrolled blood pressure we'll give his dose of enalapril 20 mg as a stat dose as well as a subsequent Norvasc 5 proximal about 8:00 if blood pressure remains uncontrolled. Podiatry has seen and evaluated the patient in the emergency room they have wrapped his wounds and dressing as well as cleaning with Betadine would aldridge seems at bedside. They have order x-rays for the patient to evaluate the diabetic wounds. They would prefer IV antibiotics per Dr. Leyva. Assessment and plan discussed with resident at time of admission. Assessment/Plan 1) Diabetic Foot ulcers * Podiatry Consult: Dr. Britni best appreciated * B/L Foot xray (06/26): results pending * ID consult: Dr. Francois best appreciated- for antibiotic management * CXR (06/26/18): no active disease 2) Insulin dependent diabetes * f/u HgA1c * f/u Lipid panel * ISS * Stiglipin 25mg PO qd * Novolog 5unit subqAC * Lantus 7 units subqHS * Novolog subq insulin protocol 3) Hypertension * Enalapril 20mg PQ q12H 4) Lipid disorder * f/u Lipid panel 5) Renal Insufficiency * Nephro consult: Dr. Tae best appreciated * Bladder Scan: result pending * Renal/Bladder US: result pending * f/u free/total PSA * patient has completed Cefepimine and and Zyvox recently april 2018 6) History of Known Peripheral neuropathy * Arterial Duplex (05/10/18): Normal duplex doppler of B/L lower extremity arteries. * Plavix 75mg PO qd - on HOLD-->will need to wait 48-72 hours prior 7) Chronic Anemia * suspecting anemia of chronic disease * order for reticulocyte count, b12, folate, iron studies, ferritin, occult blood 8) Prophylactic measures GI prophylaxis: none indicated at this time DVT prophylaxis: SCDs b/l, heparin 5,000 units subQ q8h
--- NOTE | 2018-06-26 13:58 | CP.PCM.CON ---
History of Present Illness - History of Present Illness History of Present Illness: Podiatry consult note for attending Dr. Barrientos 67 y/o male patient with PMHx of DM, diabetic neuropathy and hypercholestremia seen and evaluated in ED for left foot gangreneous digits. Patient was resting comfortably, in NAD. Patient states that he follows up with Dr. Barrientos for the wound care. States that he had a wound debridement procedure on the toes by Dr. Barrientos in [place] recently. He states that it's not painful. Patient states that he has an ulcer in his right midfoot which is not melissa yet. Patient denies any other pedal complaint at this time. Patient denies any F/N/V/C/SOB/CP. PMH: DM, Diabetic neuropathy and hypercholestremia PSH: 3 foot surgeries. Allergies: Shrimp. Social Hx: Denies smoking, EtOH use or Illicit drug use. Review of Systems - Constitutional Constitutional: As Per HPI Past Patient History - Infectious Disease Hx of Infectious Diseases: None - Past Medical History & Family History Past Medical History?: Yes - Past Social History Smoking Status: Never Smoked - CARDIAC Hx Hypercholesterolemia: Yes Hx Hypertension: Yes - PULMONARY Hx Respiratory Disorders: No - NEUROLOGICAL Hx Neurological Disorder: No - HEENT Hx HEENT Problems: No - RENAL Hx Chronic Kidney Disease: No - ENDOCRINE/METABOLIC Hx Diabetes Mellitus Type 2: Yes - HEMATOLOGICAL/ONCOLOGICAL Hx Blood Disorders: No Hx Blood Transfusions: No - INTEGUMENTARY Hx Dermatological Problems: Yes Hx Cellulitis: Yes (BILAT FOOT) - MUSCULOSKELETAL/RHEUMATOLOGICAL Hx Arthritis: Yes (KNEE/ L ANKLE) - GASTROINTESTINAL Hx Gastrointestinal Disorders: No - GENITOURINARY/GYNECOLOGICAL Hx Genitourinary Disorders: No - PSYCHIATRIC Hx Psychophysiologic Disorder: No Hx Substance Use: No - SURGICAL HISTORY Hx Surgeries: Yes Other/Comment: debridement right foot 2014. DEBRIDEMENT LT.FOOT 08/2016 - ANESTHESIA Hx Anesthesia: Yes Hx Anesthesia Reactions: No Hx Malignant Hyperthermia: No Meds Allergies/Adverse Reactions: Allergies Allergy/AdvReac Type Severity Reaction Status Date / Time shrimp Allergy RASH Verified 05/09/18 09:45 Physical Exam - Constitutional Appears: Well, Non-toxic, No Acute Distress - Extremities Exam Additional comments: B/L LE exam: VASC: DP/PT pulses are palpable 1/4, Temp gradient: warm to cool from proximal to distal B/L, Cap refill approx 3 sec to all digits, no pitting or non-pitting edema noted DERM: LLE: Ulceration noted to plantar medial arch measuring approximately 1.5 cm x .8 cm x .2 cm, 85% granular base 15% fibrosis, no malodor, no purulence. Gangrenous dry eschar ulceration noted to plantar forefoot digit 2-4, no purulence drainage, no malodor, no yesenia-wound erythema, no clinical suspicion of active indection at this time NEURO: Gross sensation intact, protective sensation diminished/absent ORTHO: No tenderness to palpation of feet bilaterally - Neurological Exam Neurological exam: Alert, Oriented x3 - Psychiatric Exam Psychiatric exam: Normal Affect, Normal Mood Results - Vital Signs Recent Vital Signs: Last Vital Signs Temp 97.8 F 06/26/18 13:21 Pulse 65 06/26/18 13:21 Resp 18 06/26/18 13:21 BP 178/84 H 06/26/18 13:21 Pulse Ox 98 06/26/18 13:21 - Labs Result Diagrams: 06/26/18 11:16 06/26/18 11:16 Labs: Laboratory Results - last 24 hr 06/26/18 06/26/18 06/26/18 11:16 11:16 13:18 WBC 8.6 RBC 4.10 L Hgb 10.8 L Hct 32.8 L MCV 79.9 L MCH 26.4 L MCHC 33.0 RDW 14.7 H Plt Count 246 MPV 7.9 Neut % (Auto) 59.1 Lymph % (Auto) 22.6 Gila % (Auto) 8.3 Eos % (Auto) 9.1 H Baso % (Auto) 0.9 Neut # (Auto) 5.1 Lymph # (Auto) 1.9 Gila # (Auto) 0.7 Eos # (Auto) 0.8 H Baso # (Auto) 0.1 PT 11.1 INR 1.0 APTT 37 H Sodium 136 Potassium 4.4 Chloride 104 Carbon Dioxide 25 Anion Gap 11 BUN 33 H Creatinine 2.0 H Est GFR ( Amer) 41 Est GFR (Non-Af Amer) 34 Random Glucose 104 Calcium 8.1 L Total Bilirubin 0.2 AST 22 ALT 12 L D Alkaline Phosphatase 102 Total Protein 6.5 Albumin 3.2 L Globulin 3.4 Albumin/Globulin Ratio 0.9 L Assessment & Plan - Assessment and Plan (Free Text) Assessment: 67 year old male patient evaluated for B/L foot wounds 1). left forefoot digit gangrene 2). Right plantar midfood wound Plan: Patient seen and evaluated Discussed plan with attending Dr. Barrientos Labs, vitals and charts reviewed - VSS; No leukocytosis From previous visit (vascular consult): - As per Dr. Rivas: There are primarily triphasic waveforms of the inflow vessels, The tibial waveforms are biphasic. Recommend continued medical therapy with antibiotics. No indication for angiogram ID consult: Dr. Leyva Wound dressed with betadine, DSD Podiatry plans for ischemic wound debridement to E - request medical optimization Thank you for the podiatry consult and allowing to take part in patient care Will continue to follow patient while in-house - Date & Time Date: 06/26/18 Time: 15:03
--- NOTE | 2018-06-26 14:11 | C.PDOC ---
History Of Present Illness 67 y/o male presents to ED sent by Dr. Barrientos for admission on possible debridement on right foot gangrene. As per usp reports no fever, chills, change in sensation or any other complaints at this time. Time Seen by Provider: 06/26/18 11:01 Chief Complaint (Nursing): Lower Extremity Problem/Injury History Per: Other (usp) History/Exam Limitations: no limitations Onset/Duration Of Symptoms: Days Current Symptoms Are (Timing): Still Present Past Medical History Reviewed: Historical Data, Nursing Documentation, Vital Signs Vital Signs: Last Vital Signs Temp 97.8 F 06/26/18 13:21 Pulse 65 06/26/18 13:21 Resp 18 06/26/18 13:21 BP 178/84 H 06/26/18 13:21 Pulse Ox 98 06/26/18 13:21 - Medical History PMH: Arthritis (KNEE/ L ANKLE), Diabetes, HTN, Hypercholesterolemia Surgical History: No Surg Hx - [facility] Procedures CLOSED BIOPSY OF SKIN AND SUBCUTANEOUS TISSUE (12/09/14) DEBRIDEMENT OF NAIL, NAIL BED OR NAIL FOLD (03/03/15) DRAINAGE OF LEFT LOWER LEG SKIN, EXTERNAL APPROACH (09/09/16) EXCISION OF L FOOT SUBCU/FASCIA, OPEN APPROACH (09/09/16) FOOT & TOE JOINT BIOPSY (12/09/14) INSERTION OF INFUSION DEV INTO SUP VENA CAVA, PERC APPROACH (08/21/16) NONEXCIS DEBRID OF WOUND, INFECT, OR BURN (11/22/14) OTHER LOCAL DESTRUC SKIN (01/22/15) ULTRASONOGRAPHY OF SUPERIOR VENA CAVA, GUIDANCE (08/21/16) Family History: States: No Known Family Hx - Social History Hx Tobacco Use: No Hx Alcohol Use: No Hx Substance Use: No - Immunization History Hx Tetanus Toxoid Vaccination: Yes Hx Influenza Vaccination: Yes (04/2016) Hx Pneumococcal Vaccination: Yes (2012) Review Of Systems Constitutional: Negative for: Fever, Chills Cardiovascular: Negative for: Chest Pain Gastrointestinal: Negative for: Nausea, Vomiting Musculoskeletal: Positive for: Foot Pain. Negative for: Leg Pain Skin: Negative for: Rash Physical Exam - Physical Exam Appears: Non-toxic Skin: Warm, Dry, No Rash Head: Atraumatic, Normacephalic Oral Mucosa: Moist Cardiovascular: Rhythm Regular Respiratory: Normal Breath Sounds, No Rales, No Rhonchi, No Wheezing Extremity: No Pedal Edema, Capillary Refill (<2 seconds), No Deformity, Other (both feet wrapped in gauze and dressing intact.) Pulses: Left Dorsalis Pedis: Normal, Right Dorsalis Pedis: Normal Neurological/Psych: Oriented x3, Normal Speech, Normal Motor, Normal Sensation ED Course And Treatment - Laboratory Results Result Diagrams: 06/26/18 11:16 06/26/18 11:16 ECG: Interpreted By Me, Viewed By Me ECG Rhythm: Sinus Rhythm Rate From EC (BPM) O2 Sat by Pulse Oximetry: 98 (RA) Pulse Ox Interpretation: Normal Progress Note: Spoke to Dr. Barrientos resident who evaluated patient at [facility], no antibiotics at this time required. Spoke to Dr. Momin accept patient under her service. Disposition - Disposition Disposition: HOSPITALIZED Disposition Time: 12:45 Condition: STABLE - Clinical Impression Clinical Impression: Cellulitis, Diabetic foot ulcer - Scribe Statement The provider has reviewed the documentation as recorded by the Mari Pisano All medical record entries made by the Mari were at my direction and personally dictated by me. I have reviewed the chart and agree that the record accurately reflects my personal performance of the history, physical exam, medical decision making, and the department course for this patient. I have also personally directed, reviewed, and agree with the discharge instructions and disposition.
[2018-06-26] MEDS ORDERED: Alum-Mag Hydrox-Simethicone Susp (30 mL) PO PRN (15:12)
[2018-06-26] MEDS ORDERED: Magnesium Hydroxide Susp 30 ml UD PO SCH (15:15)
[2018-06-26] MEDS ORDERED: Glucagon Recombinant 1 mg Inj IM PRN (15:29)
[2018-06-26] MEDS ORDERED: Dextrose 50% SYRINGE Inj (50 ml) IV PRN (15:29)
--- NOTE | 2018-06-26 15:37 | RAD ---
PROCEDURE: Right foot Radiographs. HISTORY: gangrene of right toes COMPARISON: None available. FINDINGS: BONES: Hallux valgus deformity. No acute displaced fracture. No definite destructive change evident. Distal digits are poorly evaluated due to hammertoe deformity. Small calcaneal enthesophyte. JOINTS: No dislocation. SOFT TISSUES: Soft tissue swelling. Vascular calcifications. No evidence of radiopaque foreign body. OTHER FINDINGS: None. IMPRESSION: Soft tissue swelling. Degenerative changes. Hallux valgus deformity. Please note that MRI without and with IV contrast most sensitive in detection of acute osteomyelitis.
[2018-06-26] MEDS ORDERED: (Novolog) Insulin Aspart, Recombinant 100 u/ml 10 ml vial SC SCH (16:30)
--- NOTE | 2018-06-26 16:57 | RAD ---
PROCEDURE: Left Foot Radiographs. HISTORY: r/o osteo COMPARISON: None available. FINDINGS: BONES: No acute displaced fracture. Small calcaneal enthesophyte/heel spur. JOINTS: No dislocation. SOFT TISSUES: Soft tissue swelling. Vascular calcifications. No evidence of radiopaque foreign body. OTHER FINDINGS: None. IMPRESSION: Soft tissue swelling. No acute osseous abnormality is detected. Please note that MRI without and with IV contrast is most sensitive in detection of acute osteomyelitis.
[2018-06-26] MEDS: Oxybutynin XL 10 mg Tab PO SCH (17:32)
[2018-06-26] MEDS: Multiple Vitamins Tab PO SCH (17:33)
[2018-06-26] MEDS: Cefepime 1 GM in Sodium Chloride 0.9% 50 ML IVPB SCH (17:34)
[2018-06-26] MEDS: (Novolog) Insulin Aspart, Recombinant 100 u/ml 10 ml vial SC SCH ×3 (17:41→21:33)
--- NOTE | 2018-06-26 18:08 | US ---
Date of service: 06/26/2018 PROCEDURE: Ultrasound of the Kidneys HISTORY: MARTHA on CKD COMPARISON: CT abdomen pelvis with contrast performed 12/14/16 TECHNIQUE: Sonogram of the kidneys. FINDINGS: RIGHT KIDNEY: Measures: 11.7 x 6.1 x 5.1 cm. No obstructing calculus, hydronephrosis, or renal cyst identified. LEFT KIDNEY: Measures: 12.9 x 6.0 x 5.5 cm. 1.1 x 1.0 x 1.3 cm upper pole cyst. No obstructing calculus or hydronephrosis identified. OTHER FINDINGS: None. IMPRESSION: 1.1 x 1.0 x 1.3 cm left upper pole renal cyst.
[2018-06-26 19:57] LABS: HDL CHOLESTEROL 35 mg/dL (30-70)
[2018-06-26 20:07] LABS: LDL CHOLESTEROL 148 mg/dL (0-129)
[2018-06-26] MEDS: (Lantus) Insulin Glargine, Recombinant SC SCH (21:29)
[2018-06-27] MEDS: Cefepime 1 GM in Sodium Chloride 0.9% 50 ML IVPB SCH ×2 (04:43→16:22)
[2018-06-27 07:51] LABS: BASO # 0.1 K/uL (0.0-0.2); BASO % 0.8 % (0.0-2.0); EOS # 0.9 K/uL (0.0-0.7); EOS % 11.4 % (0.0-4.0); LYMPH # 1.2 K/uL (1.0-4.3); LYMPH % 15.7 % (20.0-40.0); MEAN CELL VOLUME 79.5 fL (80.0-94.0); MEAN CORPUSCULAR HEMOGLOBIN 26.2 pg (27.0-31.0); MEAN PLATELET VOLUME 7.8 fL (7.2-11.7); MONO # 0.7 K/uL (0.0-0.8); MONO % 9.4 % (0.0-10.0); NEUT # 4.7 K/uL (1.8-7.0); NEUT % 62.7 % (50.0-75.0); RBC 4.21 Mil/uL (4.40-5.90); RED CELL DISTRIBUTION WIDTH 14.7 % (11.5-14.5); WHITE BLOOD COUNT 7.6 K/uL (4.8-10.8)
[2018-06-27] MEDS: (Novolog) Insulin Aspart, Recombinant 100 u/ml 10 ml vial SC SCH ×8 (08:13→22:05)
[2018-06-27 08:24] LABS: ALB/GLOB RATIO 0.9 (1.0-2.1); CALCIUM 8.4 mg/dl (8.6-10.4)
[2018-06-27] MEDS: Oxybutynin XL 10 mg Tab PO SCH (09:52)
[2018-06-27] MEDS: Multiple Vitamins Tab PO SCH (09:52)
--- NOTE | 2018-06-27 10:16 | CP.PCM.PN ---
<Krystian Witt - Last Filed: 06/27/18 12:57> Subjective - Date & Time of Evaluation Date of Evaluation: 06/27/18 Time of Evaluation: 10:14 - Subjective Subjective: PGY-1 Medicine Progress Note for Dr. Momin's service Patient seen and examined at bedside. Patient reports numbness in bilateral lower extremities left worse than right. Patient denies fevers, chills, chest pain, sob, n/v, constipation or diarrhea, and dysuria. Objective - Vital Signs/Intake and Output Vital Signs (last 24 hours): Temp Pulse Resp BP Pulse Ox 98.3 F 66 20 177/80 H 99 06/27/18 00:00 06/27/18 00:00 06/27/18 00:00 06/27/18 09:51 06/27/18 00:00 - Medications Medications: Current Medications Amlodipine Besylate (Norvasc) 10 mg PO DAILY [facility] Last Admin: 06/27/18 09:52 Dose: 10 mg Clopidogrel Bisulfate (Plavix) 75 mg PO DAILY [facility] Last Admin: 06/26/18 20:47 Dose: Not Given Dextrose (Dextrose 50% Inj) 0 ml IV STAT PRN; Protocol PRN Reason: Hypoglycemia Protocol Dextrose (Glutose 15) 0 gm PO ONCE PRN; Protocol PRN Reason: Hypoglycemia Protocol Enalapril Maleate (Vasotec) 20 mg PO BID [facility] Last Admin: 06/27/18 09:51 Dose: 20 mg Glucagon (Glucagen Diagnostic Kit) 0 mg IM STAT PRN; Protocol PRN Reason: Hypoglycemia Protocol Heparin Sodium (Porcine) (Heparin) 5,000 units SC Q8H [facility] Last Admin: 06/27/18 08:15 Dose: 5,000 units Hydralazine HCl (Apresoline) 25 mg PO TID [facility] Last Admin: 06/27/18 09:51 Dose: 25 mg Dextrose (Dextrose 5% In Water 1000 Ml) 1,000 mls @ 0 mls/hr IV .Q0M PRN; Protocol PRN Reason: Hypoglycemia Protocol Cefepime HCl 1 gm/ Sodium (Chloride) 50 mls @ 100 mls/hr IVPB Q12H [facility]; Protocol Last Admin: 06/27/18 04:43 Dose: 100 mls/hr Influenza Virus Vaccine (Fluzone Quad [id number]) 60 mcg IM .ONCE ONE Stop: 06/29/18 10:01 Insulin Aspart (Novolog) 5 unit SC ACHS [facility] Last Admin: 06/27/18 08:14 Dose: 5 units Insulin Aspart (Novolog) 0 unit SC ACHS [facility]; Protocol Last Admin: 06/27/18 08:13 Dose: 2 units Insulin Glargine (Lantus) 7 unit SC HS [facility] Last Admin: 06/26/18 21:29 Dose: 7 unit Multivitamins (Hexavitamin) 1 tab PO DAILY [facility] Last Admin: 06/27/18 09:52 Dose: 1 tab Oxybutynin Chloride (Ditropan Xl) 10 mg PO DAILY [facility] Last Admin: 06/27/18 09:52 Dose: 10 mg Sitagliptin Phosphate (Januvia) 25 mg PO DAILY [facility] Last Admin: 06/27/18 09:52 Dose: 25 mg Tamsulosin HCl (Flomax) 0.4 mg PO DAILY [facility] Last Admin: 06/27/18 09:52 Dose: 0.4 mg - Labs Labs: 06/27/18 07:39 06/27/18 07:39 PT 11.1 SECONDS (9.7-12.2) 06/26/18 13:18 INR 1.0 06/26/18 13:18 APTT 37 SECONDS (21-34) H 06/26/18 13:18 - Constitutional Appears: Non-toxic, No Acute Distress - Head Exam Head Exam: NORMAL INSPECTION, NORMOCEPHALIC - Eye Exam Eye Exam: EOMI, Normal appearance. absent: Nystagmus, Scleral icterus - Respiratory Exam Respiratory Exam: Clear to Ausculation Bilateral, NORMAL BREATHING PATTERN. absent: Decreased Breath Sounds, Rales, Rhonchi, Wheezes - Cardiovascular Exam Cardiovascular Exam: REGULAR RHYTHM, +S1, +S2. absent: Tachycardia - GI/Abdominal Exam GI & Abdominal Exam: Soft, Normal Bowel Sounds. absent: Distended, Firm, Guarding, Rigid, Tenderness - Extremities Exam Additional comments: bilateral foot ulcers L big toe continued til 5th toe with black eschar formation R forefoot open blister with no granulation tissue; no oozing draining or pus noted, wrap over dressing in place - Neurological Exam Neurological Exam: Alert, Awake, Oriented x3 Neuro motor strength exam: Left Upper Extremity: 5, Right Upper Extremity: 5, Left Lower Extremity: 5, Right Lower Extremity: 5 Additional comments: decreased sensations to light touch and pain in left greater than right in bilateral lower extremities - Psychiatric Exam Psychiatric exam: Normal Affect, Normal Mood - Skin Skin Exam: Intact, Normal Color Assessment and Plan - Assessment and Plan (Free Text) Assessment: Patient is 67 year old male with PMH of HTN, CKD, chronic anemia, uncontrolled DM w/ neuropathy, and hypercholesterolemia is admitted to [facility] for bilateral diabetic foot ulcers. Patient was sent to hospital by Dr. Barrientos, podiatry, from home for possible debridement. Plan: Diabetic Foot ulcers Heme/Onc Consult: Dr. Cunningham- recommendations appreciated; Platelet function test pending Podiatry Consult: Dr. Barrientos- Debridement in AM B/L Foot xray (06/26): Soft tissue swelling bilateral ID consult: Dr. Peralta- Cefepime 1gm IVPB CXR (06/26/18): no active disease Clearance: Patient is a moderate risk for low to moderate risk procedure and has been medically optimized for procedure in AM at 9:30 Insulin dependent diabetes HgA1c - 8.9 ISS Stiglipin 25mg PO qd Lispro 5 unit Glargine 7 unit Hypertension Nephrology consulted: Dr. Strong- recommendations as below Enalapril 20mg PQ q12 Hydralazine 100 mg po bid Norvasc 10mg po daily Chlorthalidone 25mg po daily Lipid disorder T; Chol: 238; LDL: 148; HDL 35 Crestor 20mg daily Renal Insufficiency Nephro consult: Dr. Strong - recs appreciated- multiple studies pending Bladder Scan: result pending Renal/Bladder US: left kidney cyst f/u free/total PSA Peripheral neuropathy 2/2 diabetes Arterial Duplex (05/10/18): Normal duplex doppler of B/L lower extremity arteries. Plavix 75mg PO qd - on HOLD BPH Flomax 0.4mg po daily Chronic Anemia 2/2 diabetes suspecting anemia of chronic disease H&H stable Prophylactic measures GI prophylaxis: none indicated at this time DVT prophylaxis: SCDs b/l, heparin 5,000 units subQ q8h- will be held at midnight for AM debridement Krystian Witt PGY-1 Medical management discussed with Dr. Momin <Renetta Momin V - Last Filed: 06/27/18 18:04> Objective - Vital Signs/Intake and Output Vital Signs (last 24 hours): Temp Pulse Resp BP Pulse Ox 97.6 F 71 20 171/79 H 98 06/27/18 16:00 06/27/18 16:00 06/27/18 16:00 06/27/18 17:34 06/27/18 16:00 - Medications Medications: Current Medications Amlodipine Besylate (Norvasc) 10 mg PO DAILY [facility] Last Admin: 06/27/18 09:52 Dose: 10 mg Chlorthalidone (Hygroton) 25 mg PO DAILY [facility] Last Admin: 06/27/18 12:05 Dose: 25 mg Clopidogrel Bisulfate (Plavix) 75 mg PO DAILY [facility] Last Admin: 06/26/18 20:47 Dose: Not Given Dextrose (Dextrose 50% Inj) 0 ml IV STAT PRN; Protocol PRN Reason: Hypoglycemia Protocol Dextrose (Glutose 15) 0 gm PO ONCE PRN; Protocol PRN Reason: Hypoglycemia Protocol Enalapril Maleate (Vasotec) 20 mg PO BID [facility] Last Admin: 06/27/18 17:34 Dose: 20 mg Glucagon (Glucagen Diagnostic Kit) 0 mg IM STAT PRN; Protocol PRN Reason: Hypoglycemia Protocol Heparin Sodium (Porcine) (Heparin) 5,000 units SC Q8H [facility] Last Admin: 06/27/18 16:22 Dose: 5,000 units Hydralazine HCl (Apresoline) 100 mg PO BID [facility] Last Admin: 06/27/18 17:33 Dose: 100 mg Dextrose (Dextrose 5% In Water 1000 Ml) 1,000 mls @ 0 mls/hr IV .Q0M PRN; Protocol PRN Reason: Hypoglycemia Protocol Cefepime HCl 1 gm/ Sodium (Chloride) 50 mls @ 100 mls/hr IVPB Q12H [facility]; Protocol Last Admin: 06/27/18 16:22 Dose: 100 mls/hr Influenza Virus Vaccine (Fluzone Quad [id number]) 60 mcg IM .ONCE ONE Stop: 06/29/18 10:01 Insulin Aspart (Novolog) 5 unit SC ACHS [facility] Last Admin: 06/27/18 17:35 Dose: 5 units Insulin Aspart (Novolog) 0 unit SC ACHS [facility]; Protocol Last Admin: 06/27/18 16:36 Dose: Not Given Insulin Glargine (Lantus) 7 unit SC HS [facility] Last Admin: 12/03/18 21:29 Dose: 7 unit Multivitamins (Hexavitamin) 1 tab PO DAILY [facility] Last Admin: 06/27/18 09:52 Dose: 1 tab Oxybutynin Chloride (Ditropan Xl) 10 mg PO DAILY [facility] Last Admin: 06/27/18 09:52 Dose: 10 mg Rosuvastatin Calcium (Crestor) 20 mg PO HS [facility] Sitagliptin Phosphate (Januvia) 25 mg PO DAILY [facility] Last Admin: 06/27/18 09:52 Dose: 25 mg Tamsulosin HCl (Flomax) 0.4 mg PO DAILY [facility] Last Admin: 06/27/18 09:52 Dose: 0.4 mg - Labs Labs: 06/27/18 07:39 06/27/18 07:39 PT 11.1 SECONDS (9.7-12.2) 06/26/18 13:18 INR 1.0 06/26/18 13:18 APTT 37 SECONDS (21-34) H 06/26/18 13:18 Attending/Attestation - Attestation I have personally seen and examined this patient.: Yes I have fully participated in the care of the patient.: Yes I have reviewed all pertinent clinical information, including history, physical exam and plan: Yes Notes (Text): Patient seen, examined, and case discussed. Patient denies acute complaints. Patient's blood pressure uncontrolled. patient is asymptomatic. Patient's blood pressure medication changed during the day. Patient is tentatively scheduled for OR tomorrow with podiatry for debridement. Platelet function test:95; discussed with heme-oncology sufficient prior to surgery. Assessment/Plan 1) Diabetic Foot ulcers * Heme/Onc Consult: Dr. Cunningham- recommendations appreciated; Platelet function test: 95 * may go to OR * Podiatry Consult: Dr. Barrientos- Debridement in AM * B/L Foot xray (06/26): Soft tissue swelling bilateral * ID consult: Dr. Peralta- Cefepime 1gm IVPB * CXR (06/26/18): no active disease * Patient is a moderate risk for low to moderate risk procedure. Will try to optimize blood pressure prior to going to OR. 2) Insulin dependent diabetes * HgA1c - 8.9 * ISS * Januvia 25mg POqdaily * Novolog 5 unit SubqAC * Lantus 7 unit subHS 3) Hypertension * Nephrology consulted: Dr. Strong- recommendations as below * Enalapril 20mg PQ q12 * Hydralazine 100 mg po bid * Norvasc 10mg po daily * Chlorthalidone 25mg po daily 4) Lipid disorder * T; Chol: 238; LDL: 148; HDL 35 * Crestor 20mg QHS 5) Renal Insufficiency * Nephro consult: Dr. Strong - recs appreciated- multiple studies pending * Bladder Scan: result pending * Renal/Bladder US: left kidney cyst * f/u free/total PSA 6) Diabetic Peripheral neuropathy * Arterial Duplex (05/10/18): Normal duplex doppler of B/L lower extremity arteries. * Plavix 75mg PO qd - on HOLD 7) BPH * Flomax 0.4mg po daily 8) Chronic Anemia * 2/2 diabetes * suspecting anemia of chronic disease * H&H stable 9) Prophylactic measures * GI prophylaxis: none indicated at this time * DVT prophylaxis: SCDs b/l, heparin 5,000 units subQ q8h- will be held at midnight for AM debridement
--- NOTE | 2018-06-27 11:46 | CP.PCM.PN ---
Subjective - Date & Time of Evaluation Date of Evaluation: 06/27/18 Time of Evaluation: 11:44 - Subjective Subjective: Podiatry Progress note: Dr. Barrientos 67 year old male was evaluated for left foot gangreneous digits. Patient is AAOx3 and appears in NAD. Denies of any pain to the foot today. Denies of any acute overnight events. No recent F/N/V/C/SOB/CP/headache. No other pedal complains. Objective - Vital Signs/Intake and Output Vital Signs (last 24 hours): Temp Pulse Resp BP Pulse Ox 98.3 F 66 20 177/80 H 99 06/27/18 00:00 06/27/18 00:00 06/27/18 00:00 06/27/18 09:51 06/27/18 00:00 - Medications Medications: Current Medications Amlodipine Besylate (Norvasc) 10 mg PO DAILY [facility] Last Admin: 06/27/18 09:52 Dose: 10 mg Chlorthalidone (Hygroton) 25 mg PO DAILY [facility] Clopidogrel Bisulfate (Plavix) 75 mg PO DAILY [facility] Last Admin: 06/26/18 20:47 Dose: Not Given Dextrose (Dextrose 50% Inj) 0 ml IV STAT PRN; Protocol PRN Reason: Hypoglycemia Protocol Dextrose (Glutose 15) 0 gm PO ONCE PRN; Protocol PRN Reason: Hypoglycemia Protocol Enalapril Maleate (Vasotec) 20 mg PO BID [facility] Last Admin: 06/27/18 09:51 Dose: 20 mg Glucagon (Glucagen Diagnostic Kit) 0 mg IM STAT PRN; Protocol PRN Reason: Hypoglycemia Protocol Heparin Sodium (Porcine) (Heparin) 5,000 units SC Q8H [facility] Last Admin: 06/27/18 08:15 Dose: 5,000 units Hydralazine HCl (Apresoline) 100 mg PO BID [facility] Dextrose (Dextrose 5% In Water 1000 Ml) 1,000 mls @ 0 mls/hr IV .Q0M PRN; Protocol PRN Reason: Hypoglycemia Protocol Cefepime HCl 1 gm/ Sodium (Chloride) 50 mls @ 100 mls/hr IVPB Q12H [facility]; Protocol Last Admin: 06/27/18 04:43 Dose: 100 mls/hr Influenza Virus Vaccine (Fluzone Quad [id number]) 60 mcg IM .ONCE ONE Stop: 12/06/18 10:01 Insulin Aspart (Novolog) 5 unit SC ACHS [facility] Last Admin: 06/27/18 08:14 Dose: 5 units Insulin Aspart (Novolog) 0 unit SC ACHS [facility]; Protocol Last Admin: 06/27/18 08:13 Dose: 2 units Insulin Glargine (Lantus) 7 unit SC HS [facility] Last Admin: 06/26/18 21:29 Dose: 7 unit Multivitamins (Hexavitamin) 1 tab PO DAILY [facility] Last Admin: 06/27/18 09:52 Dose: 1 tab Oxybutynin Chloride (Ditropan Xl) 10 mg PO DAILY [facility] Last Admin: 06/27/18 09:52 Dose: 10 mg Rosuvastatin Calcium (Crestor) 20 mg PO [facility] Sitagliptin Phosphate (Januvia) 25 mg PO DAILY [facility] Last Admin: 06/27/18 09:52 Dose: 25 mg Tamsulosin HCl (Flomax) 0.4 mg PO DAILY [facility] Last Admin: 06/27/18 09:52 Dose: 0.4 mg - Labs Labs: 06/27/18 07:39 06/27/18 07:39 PT 11.1 SECONDS (9.7-12.2) 06/26/18 13:18 INR 1.0 06/26/18 13:18 APTT 37 SECONDS (21-34) H 06/26/18 13:18 - Constitutional Appears: Well, Non-toxic, No Acute Distress - Extremities Exam Additional comments: Bilateral LE exam: VASC: DP/PT pulses are palpable 1/4, Temp gradient: warm to cool from proximal to distal B/L, Cap refill approx 3 sec to all digits, no pitting or non-pitting edema noted DERM: LLE: Ulceration noted to plantar medial arch measuring approximately 1.5 cm x .8 cm x .2 cm, 85% granular base 15% fibrosis, no malodor, no purulence. Gangrenous dry eschar ulceration noted to plantar forefoot digit 1-5, no purulence drainage, no malodor, no yesenia-wound erythema, no clinical suspicion of active infection at this time NEURO: Gross sensation intact, protective sensation diminished/absent ORTHO: No tenderness to palpation of feet bilaterally - Neurological Exam Neurological Exam: Alert, Awake, Oriented x3 - Psychiatric Exam Psychiatric exam: Normal Affect, Normal Mood Assessment and Plan - Assessment and Plan (Free Text) Assessment: 67 year old male patient evaluated for B/L foot wounds 1). left forefoot digit gangrene 2). Right plantar midfoot wound Plan: Patient seen and evaluated Discussed plan with attending Dr. Barrientos Labs, vitals and charts reviewed - VSS; No leukocytosis From previous visit (vascular consult): - As per Dr. Rivas: There are primarily triphasic waveforms of the inflow vessels, The tibial waveforms are biphasic. Recommend continued medical therapy with antibiotics. No indication for angiogram ID consult: Dr. Leyva - Continue IV abx as per ID - Cefepime Wound dressed with betadine, DSD Podiatry plans for ischemic wound debridement to [facility] tomorrow morning 9:30 AM - request medical optimization Will continue to follow patient while in-house
[2018-06-27 14:30] LABS: PLT BASE COUNT 233 K/uL
[2018-06-27 14:32] LABS: FUNCTIONING PLTS 95 K/uL; PLT(ADP) 138 K/uL
[2018-06-27 15:01] LABS: IRON 67 ug/dL (49-181)
--- NOTE | 2018-06-27 15:01 | CP.PCM.CON ---
History of Present Illness - History of Present Illness History of Present Illness: Nephrology Consultation Note: Assessment: Stable DIabetic foot ulcer Diabetic chronic Kidney Disease (E11.22) Hypertensive Chronic Kidney Disease (I12.9), uncontrolled severe HTN with urgency Chronic Kidney Disease (N18.3) Stage 3 with ? mg proteinuria (R80.9) likely due to DM Anemia (D64.9), left renal cyst ? BPH Plan No acute need for renal replacement therapy at this time. Hypertension control with meds as ordered. Maintain hemodynamics stable. Avoid hypotension. Patient on ACEI, continue same. added cholrthalidone and increased hydralazine Monitor Input/Output, daily weights and renal function with basic metabolic panel continue with flomax 0.4 mg/day. on statins, continue Check urine analysis, spot protein/creatinine, albumin/creatinine ratio Check GN work up as C3, C4, KRISTEN, Anti dsDNA, HIV/Hep B and Hep C serology Anemia work up with TSAT/Ferritin/Vitamin B12/folate, serum protein electroph oresis with immunofixation, serum free light chain assay (Alafaya/Lambda) Check for 25-OH vitamin D, iPTH, phosphorus level. Secondary HTN work up with plasma renin/aldosterone, plasma metanephrine and renal artery Doppler to r/o renal artery stenosis Dose meds/antibiotics for reduced GFR. Avoid fleets enema/magnesium based laxatives. Avoid nephrotoxins/NSAIDs/ iodinated contrast (unless needed em ergently) Glycemic control Further work up/management as per primary team Thanks for allowing me to participate in care of your patient. Will follow patient with you. Please call if any Qs Dr Heaht Strong Office: [phone] Chief Complaint; leg wound Reason for consult: CKD and HTN HPI: Pt is a with hx of diabetes Mellitus (>20 years) with retinopathy and neuropathy, hypertension (years) presented with complaints of feet ulcers and r enal consult for CKD/HTN management. pt not aware about CKD in past. Denies OTC/herbal meds or NSAIDs No recent iodinated contrast exposure. No obvious episodes of low BP. feels in usual health. reports some hesitancy in urination. non smoker. no etoh/drugs ROS: Cardiovascular: No chest pain. Pulmonary: No shortness of breath Gastrointestinal: denies abdominal pain No nausea. No vomiting. Genitourinary: No pain while urinating. Denies blood in urine. All other negative except as mentioned in HPI Physical Examination: General Appearance: Comfortable, in no acute respiratory distress, co-operative . Vitals reviewed and noted as below Head; Atraumatic, normocephalic ENT: no ulcers no thrush. Tongue is midline. Oropharynx: no rash or ulcers. EYES: Pupils are equal, round and reactive to light accommodation. Eye muscles and extraocular movement intact. Sclera is anicteric. Neck; supple no lymphadenopathy, no thyromegaly or bruit Lungs: Normal respiratory rate/effort. Breath sounds bilateral equal and clear Heart: Normal rate. s1s2 normal. No rub or gallop. Extremities: no edema. No varicose veins. feets dressed Neurological: Patient is alert, awake and oriented to person, place and time. No focal deficit. Strength bilateral appropriate and equal Skin: Warm and dry. Normal turgor. No rash. Palpitation: Normal elasticity for age Abdomen: Abdomen is soft. Bowel sounds +. There is no abdominal tenderness, no guarding/rigidity no organomegaly Psych: limited insight and normal affect/mood MSK: no joint tenderness or swelling. Digits and nails normal, no deformity : kidney or bladder not palpable Labs/imaging reviewed. Past medical history, past surgical history, family history, social history, allergy reviewed and noted as below Family hx: no hx of CKD. Rest non-contributory left renal cyst 1 cm Past Patient History - Infectious Disease Hx of Infectious Diseases: None - Past Medical History & Family History Past Medical History?: Yes - Past Social History Smoking Status: Never Smoked Cigar Use: No Alcohol: None Drugs: Denies Home Situation {Lives}: Long-Term - CARDIAC Hx Hypercholesterolemia: Yes Hx Hypertension: Yes - PULMONARY Hx Respiratory Disorders: No - NEUROLOGICAL Hx Neurological Disorder: No - HEENT Hx HEENT Problems: No - RENAL Hx Chronic Kidney Disease: No - ENDOCRINE/METABOLIC Hx Diabetes Mellitus Type 2: Yes - HEMATOLOGICAL/ONCOLOGICAL Hx Blood Disorders: No Hx Blood Transfusions: No - INTEGUMENTARY Hx Dermatological Problems: Yes Hx Cellulitis: Yes (BILAT FOOT) - MUSCULOSKELETAL/RHEUMATOLOGICAL Hx Arthritis: Yes (KNEE/ L ANKLE) - GASTROINTESTINAL Hx Gastrointestinal Disorders: No - GENITOURINARY/GYNECOLOGICAL Hx Genitourinary Disorders: No - PSYCHIATRIC Hx Substance Use: No - SURGICAL HISTORY Hx Surgeries: Yes Other/Comment: debridement right foot 2015. DEBRIDEMENT LT.FOOT 08/2016 - ANESTHESIA Hx Anesthesia: Yes Hx Anesthesia Reactions: No Hx Malignant Hyperthermia: No Meds Allergies/Adverse Reactions: Allergies Allergy/AdvReac Type Severity Reaction Status Date / Time shrimp Allergy RASH Verified 05/09/18 09:45 - Medications Medications: Current Medications Amlodipine Besylate (Norvasc) 10 mg PO DAILY [facility] Last Admin: 06/27/18 09:52 Dose: 10 mg Chlorthalidone (Hygroton) 25 mg PO DAILY [facility] Last Admin: 06/27/18 12:05 Dose: 25 mg Clopidogrel Bisulfate (Plavix) 75 mg PO DAILY [facility] Last Admin: 06/26/18 20:47 Dose: Not Given Dextrose (Dextrose 50% Inj) 0 ml IV STAT PRN; Protocol PRN Reason: Hypoglycemia Protocol Dextrose (Glutose 15) 0 gm PO ONCE PRN; Protocol PRN Reason: Hypoglycemia Protocol Enalapril Maleate (Vasotec) 20 mg PO BID [facility] Last Admin: 06/27/18 09:51 Dose: 20 mg Glucagon (Glucagen Diagnostic Kit) 0 mg IM STAT PRN; Protocol PRN Reason: Hypoglycemia Protocol Heparin Sodium (Porcine) (Heparin) 5,000 units SC Q8H [facility] Last Admin: 06/27/18 08:15 Dose: 5,000 units Hydralazine HCl (Apresoline) 100 mg PO BID [facility] Last Admin: 06/27/18 12:06 Dose: 100 mg Dextrose (Dextrose 5% In Water 1000 Ml) 1,000 mls @ 0 mls/hr IV .Q0M PRN; Protocol PRN Reason: Hypoglycemia Protocol Cefepime HCl 1 gm/ Sodium (Chloride) 50 mls @ 100 mls/hr IVPB Q12H [facility]; Protocol Last Admin: 06/27/18 04:43 Dose: 100 mls/hr Influenza Virus Vaccine (Fluzone Quad [id number]) 60 mcg IM .ONCE ONE Stop: 06/29/18 10:01 Insulin Aspart (Novolog) 5 unit SC ACHS [facility] Last Admin: 06/27/18 12:06 Dose: 5 units Insulin Aspart (Novolog) 0 unit SC ACHS [facility]; Protocol Last Admin: 06/27/18 12:07 Dose: Not Given Insulin Glargine (Lantus) 7 unit SC HS [facility] Last Admin: 06/26/18 21:29 Dose: 7 unit Multivitamins (Hexavitamin) 1 tab PO DAILY [facility] Last Admin: 06/27/18 09:52 Dose: 1 tab Oxybutynin Chloride (Ditropan Xl) 10 mg PO DAILY [facility] Last Admin: 06/27/18 09:52 Dose: 10 mg Rosuvastatin Calcium (Crestor) 20 mg PO [facility] Sitagliptin Phosphate (Januvia) 25 mg PO DAILY [facility] Last Admin: 06/27/18 09:52 Dose: 25 mg Tamsulosin HCl (Flomax) 0.4 mg PO DAILY [facility] Last Admin: 06/27/18 09:52 Dose: 0.4 mg Results - Vital Signs Recent Vital Signs: Last Vital Signs Temp 97.9 F 06/27/18 08:00 Pulse 67 06/27/18 08:00 Resp 20 06/27/18 08:00 BP 171/81 H 06/27/18 12:00 Pulse Ox 97 06/27/18 08:00 - Labs Result Diagrams: 06/27/18 07:39 06/27/18 07:39 Labs: Laboratory Results - last 24 hr 06/26/18 06/26/18 06/26/18 16:35 19:34 19:34 WBC RBC Hgb Hct MCV MCH MCHC RDW Plt Count MPV Neut % (Auto) Lymph % (Auto) [place] % (Auto) Eos % (Auto) Baso % (Auto) Neut # (Auto) Lymph # (Auto) [place] # (Auto) Eos # (Auto) Baso # (Auto) Plt Function Assay Sodium Potassium Chloride Carbon Dioxide Anion Gap BUN Creatinine Est GFR ( Amer) Est GFR (Non-Af Amer) POC Glucose (mg/dL) 126 H Random Glucose Hemoglobin A1c 8.9 H Calcium Phosphorus Magnesium Total Bilirubin AST ALT Alkaline Phosphatase Total Protein Albumin Globulin Albumin/Globulin Ratio Triglycerides 230 H D Cholesterol 238 H LDL Cholesterol Direct 148 H HDL Cholesterol 35 06/26/18 06/27/18 06/27/18 21:36 07:08 07:39 WBC 7.6 RBC 4.21 L Hgb 11.0 L Hct 33.5 L MCV 79.5 L MCH 26.2 L MCHC 33.0 RDW 14.7 H Plt Count 250 MPV 7.8 Neut % (Auto) 62.7 Lymph % (Auto) 15.7 L [place] % (Auto) 9.4 Eos % (Auto) 11.4 H Baso % (Auto) 0.8 Neut # (Auto) 4.7 Lymph # (Auto) 1.2 [place] # (Auto) 0.7 Eos # (Auto) 0.9 H Baso # (Auto) 0.1 Plt Function Assay Sodium Potassium Chloride Carbon Dioxide Anion Gap BUN Creatinine Est GFR ( Amer) Est GFR (Non-Af Amer) POC Glucose (mg/dL) 118 H 152 H Random Glucose Hemoglobin A1c Calcium Phosphorus Magnesium Total Bilirubin AST ALT Alkaline Phosphatase Total Protein Albumin Globulin Albumin/Globulin Ratio Triglycerides Cholesterol LDL Cholesterol Direct HDL Cholesterol 06/27/18 06/27/18 06/27/18 07:39 11:24 14:10 WBC RBC Hgb Hct MCV MCH MCHC RDW Plt Count MPV Neut % (Auto) Lymph % (Auto) [place] % (Auto) Eos % (Auto) Baso % (Auto) Neut # (Auto) Lymph # (Auto) [place] # (Auto) Eos # (Auto) Baso # (Auto) Plt Function Assay 95 Sodium 136 Potassium 4.6 Chloride 104 Carbon Dioxide 27 Anion Gap 10 BUN 32 H Creatinine 1.8 H Est GFR ( Amer) 46 Est GFR (Non-Af Amer) 38 POC Glucose (mg/dL) 150 H Random Glucose 151 H Hemoglobin A1c Calcium 8.4 L Phosphorus 4.2 Magnesium 1.8 Total Bilirubin 0.5 AST 22 ALT 16 L D Alkaline Phosphatase 85 Total Protein 6.4 Albumin 3.0 L Globulin 3.3 Albumin/Globulin Ratio 0.9 L Triglycerides Cholesterol LDL Cholesterol Direct HDL Cholesterol
[2018-06-27 15:02] LABS: COMPLEMENT C4 41.9 mg/dL (14.0-44.0)
[2018-06-27 15:23] LABS: % IRON SATURATION 28 (20-55); TOTAL IRON BINDING CAPACITY 235 ug/dL (250-450)
[2018-06-27 15:29] LABS: HEPATITIS B SURFACE AG Negative (NEGATIVE)
[2018-06-27 15:34] LABS: FERRITIN 68.2 ng/mL; HEPATITIS B CORE AB NEGATIVE (NEGATIVE)
[2018-06-27 15:44] LABS: HIV 1&2 ANTIBODY NEGATIVE (NEGATIVE)
[2018-06-27 15:46] LABS: HEPATITIS C ANTIBODY NEGATIVE (NEGATIVE)
[2018-06-27 16:03] LABS: FOLATE 13.9 ng/mL
--- NOTE | 2018-06-27 19:28 | CARD ---
APPROVED REPORT Date of service: 06/26/2018 EKG Measurement Heart [id number] <Conclusion> Normal sinus rhythm Possible Left atrial enlargement Borderline ECG
--- NOTE | 2018-06-27 19:55 | CP.PCM.CON ---
History of Present Illness - History of Present Illness History of Present Illness: Patient is a 67 yo male with PMH significant for chronic anemia, HTN, CKD, uncontrolled DM w/ neuropathy, foot ulcers, and hyperlipidemia is admitted to hospital for evaluation of bilateral diabetic foot ulcers as referred by Dr. Barrientos. Patient states that he has been in the [facility] for about a month s/p previous admission for foot ulcer continued treatment. Patient admits that his foot ulcer in [facility] has not been healing for about a month and at which point Dr. Barrientos stated the patient go to hospital for further treatment. Patient denies any pain in his feet and states he uses a cane for ambulation with no difficulty. Patient states he completed his previous treatment for bilateral foot ulcer with Cefepime/Zyvox but still the foot ulcer did not heal. Patient states he has bilateral neuropathy both sensation and pain. Patient admits to blurriness in visual field at times but not constant. Patient states he has difficulty initiating urinary stream. Patient denies fevers, chills, chest pain, sob, n/v, constipation, or dysuria. Hematology consult called to determine platelet function prior to the surgery in AM, because of patient's history of being on Plavix. Platelet function testing done today show functioning platelet count of 95K. The patient denies any easy bleeding or bruising. He is not aware of taking Plavix and says he occasionally takes Aspirin. PMH- uncontrolled DM w/neuropathy, HTN, anemia, CKD PSH- Left foot debridement x3, B/L cataract surgeries FH-mother: DM, HTN ; father: DM, HTN Meds- Lispro, Glargine, Tylenol, Milk of Magnesia, Enalapril, Plavix, Allogliptin, Oxybutynin, Flomax, Protonix, Maalox Allergies- Shrimp (rash) Past Patient History - Infectious Disease Hx of Infectious Diseases: None - Past Medical History & Family History Past Medical History?: Yes - Past Social History Smoking Status: Never Smoked Cigar Use: No Alcohol: None Drugs: Denies Home Situation {Lives}: Custodial - CARDIAC Hx Hypercholesterolemia: Yes Hx Hypertension: Yes - PULMONARY Hx Respiratory Disorders: No - NEUROLOGICAL Hx Neurological Disorder: No - HEENT Hx HEENT Problems: No - RENAL Hx Chronic Kidney Disease: No - ENDOCRINE/METABOLIC Hx Diabetes Mellitus Type 2: Yes - HEMATOLOGICAL/ONCOLOGICAL Hx Blood Disorders: No Hx Blood Transfusions: No - INTEGUMENTARY Hx Dermatological Problems: Yes Hx Cellulitis: Yes (BILAT FOOT) - MUSCULOSKELETAL/RHEUMATOLOGICAL Hx Arthritis: Yes (KNEE/ L ANKLE) - GASTROINTESTINAL Hx Gastrointestinal Disorders: No - GENITOURINARY/GYNECOLOGICAL Hx Genitourinary Disorders: No - PSYCHIATRIC Hx Substance Use: No - SURGICAL HISTORY Hx Surgeries: Yes Other/Comment: debridement right foot 2015. DEBRIDEMENT LT.FOOT 08/2016 - ANESTHESIA Hx Anesthesia: Yes Hx Anesthesia Reactions: No Hx Malignant Hyperthermia: No Meds Allergies/Adverse Reactions: Allergies Allergy/AdvReac Type Severity Reaction Status Date / Time shrimp Allergy RASH Verified 05/09/18 09:45 - Medications Medications: Current Medications Amlodipine Besylate (Norvasc) 10 mg PO DAILY [facility] Last Admin: 06/27/18 09:52 Dose: 10 mg Chlorthalidone (Hygroton) 25 mg PO DAILY [facility] Last Admin: 06/27/18 12:05 Dose: 25 mg Clopidogrel Bisulfate (Plavix) 75 mg PO DAILY [facility] Last Admin: 06/26/18 20:47 Dose: Not Given Dextrose (Dextrose 50% Inj) 0 ml IV STAT PRN; Protocol PRN Reason: Hypoglycemia Protocol Dextrose (Glutose 15) 0 gm PO ONCE PRN; Protocol PRN Reason: Hypoglycemia Protocol Enalapril Maleate (Vasotec) 20 mg PO BID [facility] Last Admin: 06/27/18 17:34 Dose: 20 mg Glucagon (Glucagen Diagnostic Kit) 0 mg IM STAT PRN; Protocol PRN Reason: Hypoglycemia Protocol Heparin Sodium (Porcine) (Heparin) 5,000 units SC Q8H [facility] Last Admin: 06/27/18 16:22 Dose: 5,000 units Hydralazine HCl (Apresoline) 100 mg PO BID [facility] Last Admin: 06/27/18 17:33 Dose: 100 mg Dextrose (Dextrose 5% In Water 1000 Ml) 1,000 mls @ 0 mls/hr IV .Q0M PRN; Protocol PRN Reason: Hypoglycemia Protocol Cefepime HCl 1 gm/ Sodium (Chloride) 50 mls @ 100 mls/hr IVPB Q12H [facility]; Protocol Last Admin: 06/27/18 16:22 Dose: 100 mls/hr Influenza Virus Vaccine (Fluzone Quad 1395-5099) 60 mcg IM .ONCE ONE Stop: 06/29/18 10:01 Insulin Aspart (Novolog) 5 unit SC [facility] Last Admin: 06/27/18 17:35 Dose: 5 units Insulin Aspart (Novolog) 0 unit SC ACHS [facility]; Protocol Last Admin: 06/27/18 16:36 Dose: Not Given Insulin Glargine (Lantus) 7 unit SC HS [facility] Last Admin: 06/26/18 21:29 Dose: 7 unit Multivitamins (Hexavitamin) 1 tab PO DAILY [facility] Last Admin: 06/27/18 09:52 Dose: 1 tab Oxybutynin Chloride (Ditropan Xl) 10 mg PO DAILY [facility] Last Admin: 06/27/18 09:52 Dose: 10 mg Rosuvastatin Calcium (Crestor) 20 mg PO [facility] Saccharomyces Boulardii (Florastor) 250 mg PO BID [facility] Sitagliptin Phosphate (Januvia) 25 mg PO DAILY [facility] Last Admin: 06/27/18 09:52 Dose: 25 mg Tamsulosin HCl (Flomax) 0.4 mg PO DAILY [facility] Last Admin: 06/27/18 09:52 Dose: 0.4 mg Results - Vital Signs Recent Vital Signs: Last Vital Signs Temp 97.6 F 06/27/18 16:00 Pulse 71 06/27/18 16:00 Resp 20 06/27/18 16:00 BP 171/79 H 06/27/18 17:34 Pulse Ox 98 06/27/18 16:00 - Labs Result Diagrams: 06/27/18 07:39 06/27/18 07:39 Labs: Laboratory Results - last 24 hr 06/26/18 06/26/18 06/26/18 16:35 19:34 19:34 WBC RBC Hgb Hct MCV MCH MCHC RDW Plt Count MPV Neut % (Auto) Lymph % (Auto) [place] % (Auto) Eos % (Auto) Baso % (Auto) Neut # (Auto) Lymph # (Auto) [place] # (Auto) Eos # (Auto) Baso # (Auto) Plt Function Assay Sodium Potassium Chloride Carbon Dioxide Anion Gap BUN Creatinine Est GFR ( Amer) Est GFR (Non-Af Amer) POC Glucose (mg/dL) 126 H Random Glucose Hemoglobin A1c 8.9 H Calcium Phosphorus Magnesium Iron TIBC % Saturation Ferritin Total Bilirubin AST ALT Alkaline Phosphatase Total Protein Albumin Globulin Albumin/Globulin Ratio Triglycerides 230 H D Cholesterol 238 H LDL Cholesterol Direct 148 H HDL Cholesterol 35 Vitamin B12 Folate Complement C3 Complement C4 Hep Bs Antigen Hep Bs Antibody Hep B Core IgM Ab Hepatitis C Antibody HIV 1&2 Antibody Screen 06/26/18 06/27/18 06/27/18 21:36 07:08 07:39 WBC 7.6 RBC 4.21 L Hgb 11.0 L Hct 33.5 L MCV 79.5 L MCH 26.2 L MCHC 33.0 RDW 14.7 H Plt Count 250 MPV 7.8 Neut % (Auto) 62.7 Lymph % (Auto) 15.7 L [place] % (Auto) 9.4 Eos % (Auto) 11.4 H Baso % (Auto) 0.8 Neut # (Auto) 4.7 Lymph # (Auto) 1.2 [place] # (Auto) 0.7 Eos # (Auto) 0.9 H Baso # (Auto) 0.1 Plt Function Assay Sodium Potassium Chloride Carbon Dioxide Anion Gap BUN Creatinine Est GFR ( Amer) Est GFR (Non-Af Amer) POC Glucose (mg/dL) 118 H 152 H Random Glucose Hemoglobin A1c Calcium Phosphorus Magnesium Iron TIBC % Saturation Ferritin Total Bilirubin AST ALT Alkaline Phosphatase Total Protein Albumin Globulin Albumin/Globulin Ratio Triglycerides Cholesterol LDL Cholesterol Direct HDL Cholesterol Vitamin B12 Folate Complement C3 Complement C4 Hep Bs Antigen Hep Bs Antibody Hep B Core IgM Ab Hepatitis C Antibody HIV 1&2 Antibody Screen 06/27/18 06/27/18 06/27/18 07:39 11:24 14:10 WBC RBC Hgb Hct MCV MCH MCHC RDW Plt Count MPV Neut % (Auto) Lymph % (Auto) [place] % (Auto) Eos % (Auto) Baso % (Auto) Neut # (Auto) Lymph # (Auto) [place] # (Auto) Eos # (Auto) Baso # (Auto) Plt Function Assay 95 Sodium 136 Potassium 4.6 Chloride 104 Carbon Dioxide 27 Anion Gap 10 BUN 32 H Creatinine 1.8 H Est GFR ( Amer) 46 Est GFR (Non-Af Amer) 38 POC Glucose (mg/dL) 150 H Random Glucose 151 H Hemoglobin A1c Calcium 8.4 L Phosphorus 4.2 Magnesium 1.8 Iron TIBC % Saturation Ferritin Total Bilirubin 0.5 AST 22 ALT 16 L D Alkaline Phosphatase 85 Total Protein 6.4 Albumin 3.0 L Globulin 3.3 Albumin/Globulin Ratio 0.9 L Triglycerides Cholesterol LDL Cholesterol Direct HDL Cholesterol Vitamin B12 Folate Complement C3 Complement C4 Hep Bs Antigen Hep Bs Antibody Hep B Core IgM Ab Hepatitis C Antibody HIV 1&2 Antibody Screen 06/27/18 06/27/18 06/27/18 14:13 14:13 14:13 WBC RBC Hgb Hct MCV MCH MCHC RDW Plt Count MPV Neut % (Auto) Lymph % (Auto) [place] % (Auto) Eos % (Auto) Baso % (Auto) Neut # (Auto) Lymph # (Auto) [place] # (Auto) Eos # (Auto) Baso # (Auto) Plt Function Assay Sodium Potassium Chloride Carbon Dioxide Anion Gap BUN Creatinine Est GFR ( Amer) Est GFR (Non-Af Amer) POC Glucose (mg/dL) Random Glucose Hemoglobin A1c Calcium Phosphorus Magnesium Iron 67 TIBC 235 L % Saturation 28 Ferritin 68.2 Total Bilirubin AST ALT Alkaline Phosphatase Total Protein Albumin Globulin Albumin/Globulin Ratio Triglycerides Cholesterol LDL Cholesterol Direct HDL Cholesterol Vitamin B12 677 Folate 13.9 Complement C3 Complement C4 Hep Bs Antigen Negative Hep Bs Antibody Positive Hep B Core IgM Ab Negative Hepatitis C Antibody Negative HIV 1&2 Antibody Screen Negative 06/27/18 14:13 WBC RBC Hgb Hct MCV MCH MCHC RDW Plt Count MPV Neut % (Auto) Lymph % (Auto) [place] % (Auto) Eos % (Auto) Baso % (Auto) Neut # (Auto) Lymph # (Auto) [place] # (Auto) Eos # (Auto) Baso # (Auto) Plt Function Assay Sodium Potassium Chloride Carbon Dioxide Anion Gap BUN Creatinine Est GFR ( Amer) Est GFR (Non-Af Amer) POC Glucose (mg/dL) Random Glucose Hemoglobin A1c Calcium Phosphorus Magnesium Iron TIBC % Saturation Ferritin Total Bilirubin AST ALT Alkaline Phosphatase Total Protein Albumin Globulin Albumin/Globulin Ratio Triglycerides Cholesterol LDL Cholesterol Direct HDL Cholesterol Vitamin B12 Folate Complement C3 115.0 Complement C4 41.9 Hep Bs Antigen Hep Bs Antibody Hep B Core IgM Ab Hepatitis C Antibody HIV 1&2 Antibody Screen Assessment & Plan (1) Platelet dysfunction Assessment and Plan: 67 yo man with a history of DM, admitted for surgery on gangrenous foot , tomorrow AM, with a history of being on PO Plavix as an outpatient. His platelet count is normal and his functioning platelet count is 95K. Do not recommend any further testing because of the lack of bleeding or bruis ing, lack of previous bleeding history. Do not recommend any further treatment or intervention, platelet count of 95K adequate for planned OR procedure from heme standpoint. Status: Acute
--- NOTE | 2018-06-27 20:30 | CP.PCM.CON ---
History of Present Illness - History of Present Illness History of Present Illness: 67 y/o male patient with PMHx of DM, diabetic neuropathy and hypercholestremia seen and evaluated in ED for left foot gangreneous digits. ID consulted for this PMH: DM, Diabetic neuropathy and hypercholestremia PSH: 3 foot surgeries. Allergies: Shrimp. Social Hx: Denies smoking, EtOH use or Illicit drug use. Review of Systems - Review of Systems All systems: reviewed and no additional remarkable complaints except - Constitutional Constitutional: absent: As Per HPI, Anorexia, Chills, Daytime Sleepiness, Excessive Sweating, Fatigue, Fever, Frequent Falls, Headache, Increased Appetite, Lethargy, Malaise, Night Sweats, Snoring, Sleep Apnea, Weight Gain, Weight Loss, Weakness, Other - EENT Eyes: absent: As Per HPI, Blind Spots, Blurred Vision, Change in Vision, Decreased Night Vision, Diplopia, Discharge, Dry Eye, Exophthalmos, Floaters, Irritation, Itchy Eyes, Loss of Peripheral Vision, Pain, Photophobia, Requires Corrective Lenses, Sees Flashes, Spots in Vision, Tunnel Vision, Other Visual Disturbances, Loss of Vision, Other Ears: absent: As Per HPI, Decreased Hearing, Ear Discharge, Ear Pain, Tinnitus, Abnormal Hearing, Disequilibrium, Dizziness, Other Nose/Mouth/Throat: absent: As Per HPI, Epistaxis, Nasal Congestion, Nasal Discharge, Nasal Obstruction, Nasal Trauma, Nose Pain, Post Nasal Drip, Sinus Pain, Sinus Pressure, Bleeding Gums, Change in Voice, Dental Pain, Dry Mouth, Dysphagia, Halitosis, Hoarsness, Lip Swelling, Mouth Lesions, Mouth Pain, Odynophagia, Sore Throat, Throat Swelling, Tongue Swelling, Facial Pain, Neck Pain, Neck Mass, Other - Cardiovascular Cardiovascular: As Per HPI - Respiratory Respiratory: absent: As Per HPI, Cough, Dyspnea, Hemoptysis, Dyspnea on Exertion, Wheezing, Snoring, Stridor, Pain on Inspiration, Chest Congestion, Excessive Mucous Production, Change in Mucous Color, Pain with Coughing, Other - Gastrointestinal Gastrointestinal: absent: As Per HPI, Abdominal Pain, Belching, Bloating, Change in Bowel Habits, Change in Stool Character, Coffee Ground Emesis, Constipation, Cramping, Diarrhea, Dyspepsia, Dysphagia, Early Satiety, Excessive Flatus, Fecal Incontinence, Heartburn, Hematemesis, Hematochezia, Loose Stools, Melena, Nausea, Odynophagia, Temesmus, Vomiting, Other - Genitourinary Genitourinary: absent: As Per HPI, Change in Urinary Stream, Difficulty Urinating, Dysuria, Flank Pain, Hematuria, Pyuria, Nocturia, Urinary Incontinence, Urinary Frequency, Urinary Hesitance, Urinary Urgency, Voiding Freq/Small Amts, Freq UTI, Hx Renal/Bladder Calculi, Hx /Renal Surgery, Bladder Distension, Other - Musculoskeletal Musculoskeletal: As Per HPI - Integumentary Integumentary: As Per HPI - Neurological Neurological: As Per HPI - Psychiatric Psychiatric: absent: As Per HPI, Abnormal Sleep Pattern, Anhedonia, Anxiety, Auditory Hallucinations, Behavioral Changes, Change in Appetite, Change in Libido, Confusion, Depression, Difficulty Concentrating, Hallucinations, Homicidal Ideation, Hopelessness, Irritability, Memory Loss, Mood Swings, Panic Attacks, Paranoia, Suicidal Ideation, Visual Hallucinations, Tactile Hallucinations, Other - Endocrine Endocrine: absent: As Per HPI, Change in Body Appearance, Change in Libido, Cold Intolorance, Deepening of Voice, Excessive Sweating, Fatigue, Flushing, Heat In tolorance, Increase in Ring/Shoe/Hat Size, Palpitations, Polydipsia, Polyphagia, Polyuria, Other - Hematologic/Lymphatic Hematologic: As Per HPI Past Patient History - Infectious Disease Hx of Infectious Diseases: None - Past Medical History & Family History Past Medical History?: Yes - Past Social History Smoking Status: Never Smoked Cigar Use: No Alcohol: None Drugs: Denies Home Situation {Lives}: Retirement - CARDIAC Hx Hypercholesterolemia: Yes Hx Hypertension: Yes - PULMONARY Hx Respiratory Disorders: No - NEUROLOGICAL Hx Neurological Disorder: No - HEENT Hx HEENT Problems: No - RENAL Hx Chronic Kidney Disease: No - ENDOCRINE/METABOLIC Hx Diabetes Mellitus Type 2: Yes - HEMATOLOGICAL/ONCOLOGICAL Hx Blood Disorders: No Hx Blood Transfusions: No - INTEGUMENTARY Hx Dermatological Problems: Yes Hx Cellulitis: Yes (BILAT FOOT) - MUSCULOSKELETAL/RHEUMATOLOGICAL Hx Arthritis: Yes (KNEE/ L ANKLE) - GASTROINTESTINAL Hx Gastrointestinal Disorders: No - GENITOURINARY/GYNECOLOGICAL Hx Genitourinary Disorders: No - PSYCHIATRIC Hx Substance Use: No - SURGICAL HISTORY Hx Surgeries: Yes Other/Comment: debridement right foot 2014. DEBRIDEMENT LT.FOOT 08/2016 - ANESTHESIA Hx Anesthesia: Yes Hx Anesthesia Reactions: No Hx Malignant Hyperthermia: No Meds Allergies/Adverse Reactions: Allergies Allergy/AdvReac Type Severity Reaction Status Date / Time shrimp Allergy RASH Verified 05/09/18 09:45 - Medications Medications: Current Medications Amlodipine Besylate (Norvasc) 10 mg PO DAILY [facility] Last Admin: 06/27/18 09:52 Dose: 10 mg Chlorthalidone (Hygroton) 25 mg PO DAILY [facility] Clopidogrel Bisulfate (Plavix) 75 mg PO DAILY [facility] Last Admin: 06/26/18 20:47 Dose: Not Given Dextrose (Dextrose 50% Inj) 0 ml IV STAT PRN; Protocol PRN Reason: Hypoglycemia Protocol Dextrose (Glutose 15) 0 gm PO ONCE PRN; Protocol PRN Reason: Hypoglycemia Protocol Enalapril Maleate (Vasotec) 20 mg PO BID [facility] Last Admin: 06/27/18 09:51 Dose: 20 mg Glucagon (Glucagen Diagnostic Kit) 0 mg IM STAT PRN; Protocol PRN Reason: Hypoglycemia Protocol Heparin Sodium (Porcine) (Heparin) 5,000 units SC Q8H [facility] Last Admin: 06/27/18 08:15 Dose: 5,000 units Hydralazine HCl (Apresoline) 100 mg PO BID [facility] Dextrose (Dextrose 5% In Water 1000 Ml) 1,000 mls @ 0 mls/hr IV .Q0M PRN; Protocol PRN Reason: Hypoglycemia Protocol Cefepime HCl 1 gm/ Sodium (Chloride) 50 mls @ 100 mls/hr IVPB Q12H [facility]; Protocol Last Admin: 06/27/18 04:43 Dose: 100 mls/hr Influenza Virus Vaccine (Fluzone Quad [id number]) 60 mcg IM .ONCE ONE Stop: 06/29/18 10:01 Insulin Aspart (Novolog) 5 unit SC ACHS [facility] Last Admin: 06/27/18 08:14 Dose: 5 units Insulin Aspart (Novolog) 0 unit SC ACHS [facility]; Protocol Last Admin: 06/27/18 08:13 Dose: 2 units Insulin Glargine (Lantus) 7 unit SC HS [facility] Last Admin: 06/26/18 21:29 Dose: 7 unit Multivitamins (Hexavitamin) 1 tab PO DAILY [facility] Last Admin: 06/27/18 09:52 Dose: 1 tab Oxybutynin Chloride (Ditropan Xl) 10 mg PO DAILY [facility] Last Admin: 06/27/18 09:52 Dose: 10 mg Sitagliptin Phosphate (Januvia) 25 mg PO DAILY [facility] Last Admin: 06/27/18 09:52 Dose: 25 mg Tamsulosin HCl (Flomax) 0.4 mg PO DAILY [facility] Last Admin: 06/27/18 09:52 Dose: 0.4 mg Physical Exam - Constitutional Appears: Non-toxic - Head Exam Head Exam: NORMOCEPHALIC - Eye Exam Eye Exam: PERRL Pupil Exam: absent: NORMAL ACCOMODATION - ENT Exam ENT Exam: Mucous Membranes Dry - Neck Exam Neck exam: Positive for: Full Rom - Respiratory Exam Respiratory Exam: Decreased Breath Sounds, Clear to Auscultation Bilateral - Cardiovascular Exam Cardiovascular Exam: REGULAR RHYTHM, +S1, +S2 - GI/Abdominal Exam GI & Abdominal Exam: Diminished Bowel Sounds, Distended, Soft - Rectal Exam Rectal Exam: Deferred - Exam Exam: NORMAL INSPECTION - Extremities Exam Additional comments: Bilateral LE exam: VASC: DP/PT pulses are palpable 1/4, Temp gradient: warm to cool from proximal to distal B/L, Cap refill approx 3 sec to all digits, no pitting or non-pitting edema noted DERM: LLE: Ulceration noted to plantar medial arch measuring approximately 1.5 cm x .8 cm x .2 cm, 85% granular base 15% fibrosis, no malodor, no purulence. Gangrenous dry eschar ulceration noted to plantar forefoot digit 1-5, no purulence drainage, no malodor, no yesenia-wound erythema, no clinical suspicion of active infection at this time NEURO: Gross sensation intact, protective sensation diminished/absent ORTHO: No tenderness to palpation of feet bilaterally - Back Exam Back exam: absent: CVA tenderness (L), CVA tenderness (R), paraspinal tenderness - Neurological Exam Neurological exam: Alert, CN II-XII Intact, Oriented x3 - Psychiatric Exam Psychiatric exam: Normal Mood - Skin Skin Exam: Dry Results - Vital Signs Recent Vital Signs: Last Vital Signs Temp 98.3 F 06/27/18 00:00 Pulse 66 06/27/18 00:00 Resp 20 06/27/18 00:00 BP 177/80 H 06/27/18 09:51 Pulse Ox 99 06/27/18 00:00 - Labs Result Diagrams: 06/27/18 07:39 06/27/18 07:39 Labs: Laboratory Results - last 24 hr 06/26/18 06/26/18 06/26/18 11:16 11:16 13:18 WBC 8.6 RBC 4.10 L Hgb 10.8 L Hct 32.8 L MCV 79.9 L MCH 26.4 L MCHC 33.0 RDW 14.7 H Plt Count 246 MPV 7.9 Neut % (Auto) 59.1 Lymph % (Auto) 22.6 [place] % (Auto) 8.3 Eos % (Auto) 9.1 H Baso % (Auto) 0.9 Neut # (Auto) 5.1 Lymph # (Auto) 1.9 [place] # (Auto) 0.7 Eos # (Auto) 0.8 H Baso # (Auto) 0.1 PT 11.1 INR 1.0 APTT 37 H Sodium 136 Potassium 4.4 Chloride 104 Carbon Dioxide 25 Anion Gap 11 BUN 33 H Creatinine 2.0 H Est GFR ( Amer) 41 Est GFR (Non-Af Amer) 34 POC Glucose (mg/dL) Random Glucose 104 Hemoglobin A1c Calcium 8.1 L Phosphorus Magnesium Total Bilirubin 0.2 AST 22 ALT 12 L D Alkaline Phosphatase 102 Total Protein 6.5 Albumin 3.2 L Globulin 3.4 Albumin/Globulin Ratio 0.9 L Triglycerides Cholesterol LDL Cholesterol Direct HDL Cholesterol 06/26/18 06/26/18 06/26/18 16:35 19:34 19:34 WBC RBC Hgb Hct MCV MCH MCHC RDW Plt Count MPV Neut % (Auto) Lymph % (Auto) [place] % (Auto) Eos % (Auto) Baso % (Auto) Neut # (Auto) Lymph # (Auto) [place] # (Auto) Eos # (Auto) Baso # (Auto) PT INR APTT Sodium Potassium Chloride Carbon Dioxide Anion Gap BUN Creatinine Est GFR ( Amer) Est GFR (Non-Af Amer) POC Glucose (mg/dL) 126 H Random Glucose Hemoglobin A1c 8.9 H Calcium Phosphorus Magnesium Total Bilirubin AST ALT Alkaline Phosphatase Total Protein Albumin Globulin Albumin/Globulin Ratio Triglycerides 230 H D Cholesterol 238 H LDL Cholesterol Direct 148 H HDL Cholesterol 35 06/26/18 06/27/18 06/27/18 21:36 07:08 07:39 WBC 7.6 RBC 4.21 L Hgb 11.0 L Hct 33.5 L MCV 79.5 L MCH 26.2 L MCHC 33.0 RDW 14.7 H Plt Count 250 MPV 7.8 Neut % (Auto) 62.7 Lymph % (Auto) 15.7 L [place] % (Auto) 9.4 Eos % (Auto) 11.4 H Baso % (Auto) 0.8 Neut # (Auto) 4.7 Lymph # (Auto) 1.2 [place] # (Auto) 0.7 Eos # (Auto) 0.9 H Baso # (Auto) 0.1 PT INR APTT Sodium Potassium Chloride Carbon Dioxide Anion Gap BUN Creatinine Est GFR ( Amer) Est GFR (Non-Af Amer) POC Glucose (mg/dL) 118 H 152 H Random Glucose Hemoglobin A1c Calcium Phosphorus Magnesium Total Bilirubin AST ALT Alkaline Phosphatase Total Protein Albumin Globulin Albumin/Globulin Ratio Triglycerides Cholesterol LDL Cholesterol Direct HDL Cholesterol 06/27/18 07:39 WBC RBC Hgb Hct MCV MCH MCHC RDW Plt Count MPV Neut % (Auto) Lymph % (Auto) [place] % (Auto) Eos % (Auto) Baso % (Auto) Neut # (Auto) Lymph # (Auto) [place] # (Auto) Eos # (Auto) Baso # (Auto) PT INR APTT Sodium 136 Potassium 4.6 Chloride 104 Carbon Dioxide 27 Anion Gap 10 BUN 32 H Creatinine 1.8 H Est GFR ( Amer) 46 Est GFR (Non-Af Amer) 38 POC Glucose (mg/dL) Random Glucose 151 H Hemoglobin A1c Calcium 8.4 L Phosphorus 4.2 Magnesium 1.8 Total Bilirubin 0.5 AST 22 ALT 16 L D Alkaline Phosphatase 85 Total Protein 6.4 Albumin 3.0 L Globulin 3.3 Albumin/Globulin Ratio 0.9 L Triglycerides Cholesterol LDL Cholesterol Direct HDL Cholesterol Assessment & Plan (1) Cellulitis of foot, left Status: Acute (2) Diabetic foot ulcer Status: Acute - Assessment and Plan (Free Text) Assessment: gangrenous digits left foot- possib ly neuropathic vs ischemic nonhealing ulcer right foot/ cellulitis consider CT angio. ceretec scan , neuro eval cultures cont IV antibiotics wound care
[2018-06-27 20:58] LABS: SQUAMOUS EPITHIAL < 1 /hpf (0-5); URINE BACTERIA RARE (<OCC); URINE BILIRUBIN NEGATIVE (NEGATIVE); URINE BLOOD NEGATIVE (NEGATIVE); URINE CLARITY Clear (Clear); URINE COLOR Yellow (YELLOW); URINE GLUCOSE (UA) 1+ mg/dL (Normal); URINE LEUKOCYTE ESTERASE NEG Leu/uL (Negative); URINE PROTEIN 3+ mg/dL (NEGATIVE); URINE UROBILINOGEN NORMAL mg/dL (0.2-1.0)
[2018-06-27] MEDS: (Lantus) Insulin Glargine, Recombinant SC SCH (22:04)
[2018-06-27] MEDS: Piperacillin/Tazobact 3.375 GM in Sodium Chloride 100 ML IVPB SCH (22:09)
[2018-06-28] MEDS: Piperacillin/Tazobact 3.375 GM in Sodium Chloride 100 ML IVPB SCH ×3 (05:06→21:29)
[2018-06-28 07:31] LABS: BASO # 0.1 K/uL (0.0-0.2); BASO % 1.1 % (0.0-2.0); EOS # 0.9 K/uL (0.0-0.7); EOS % 11.2 % (0.0-4.0); HEMOGLOBIN 10.9 g/dL (12.0-18.0); LYMPH # 1.2 K/uL (1.0-4.3); LYMPH % 14.6 % (20.0-40.0); MEAN CELL VOLUME 80.2 fL (80.0-94.0); MEAN CORPUSCULAR HEMOGLOBIN 26.5 pg (27.0-31.0); MEAN PLATELET VOLUME 7.9 fL (7.2-11.7); MONO # 0.7 K/uL (0.0-0.8); MONO % 8.6 % (0.0-10.0); NEUT # 5.3 K/uL (1.8-7.0); NEUT % 64.5 % (50.0-75.0); RBC 4.14 Mil/uL (4.40-5.90); RED CELL DISTRIBUTION WIDTH 14.6 % (11.5-14.5); WHITE BLOOD COUNT 8.3 K/uL (4.8-10.8)
[2018-06-28] MEDS: (Novolog) Insulin Aspart, Recombinant 100 u/ml 10 ml vial SC SCH ×8 (07:34→21:30)
[2018-06-28 07:42] LABS: INR 1.1; PROTHROMBIN TIME 11.8 SECONDS (9.7-12.2)
[2018-06-28 07:43] LABS: ALB/GLOB RATIO 0.9 (1.0-2.1); ALBUMIN 3.3 g/dL (3.5-5.0); CALCIUM 8.4 mg/dl (8.6-10.4)
[2018-06-28] MEDS ORDERED: ceFAZolin 1 gm in NS 0 GM/0 ML BAG IVPB ONE (09:28)
[2018-06-28] MEDS ORDERED: Bacitracin Ointment 30 GM TUBE ONE (09:29)
[2018-06-28] MEDS ORDERED: Bupivacaine 0.25% 20 ML INJ IJ ONE (09:29)
[2018-06-28] MEDS ORDERED: Lidocaine Hydrochloride 20 ML INJ ONE (09:29)
[2018-06-28] MEDS ORDERED: Midazolam 2 MG/2 ML VIAL ONE (09:52)
[2018-06-28] MEDS ORDERED: Propofol 10 mg/ml Inj (20 ML) ONE (09:52)
[2018-06-28] MEDS ORDERED: Ergocalciferol 50,000 Intl Units Cap PO SCH (10:00)
[2018-06-28] MEDS: Oxybutynin XL 10 mg Tab PO SCH (10:05)
[2018-06-28] MEDS: Saccharomyces Boulardi 250 mg Cap PO SCH ×2 (10:06→18:05)
[2018-06-28] MEDS: Multiple Vitamins Tab PO SCH (10:06)
[2018-06-28] MEDS ORDERED: Oxycodone/Acetaminophen 5/325 mg Tab PO PRN ×2 (10:24)
--- NOTE | 2018-06-28 10:29 | PCM.SURG1 ---
Surgeon's Initial Post Op Note - Surgeon's Notes Surgeon: Dr. Barrientos, DPM Marketing Strategy Analyst: Dr. Cathy Lerma, PGY2 Type of Anesthesia: IV Sedation Pre-Operative Diagnosis: L foot chronic necrotic wound forefoot Operative Findings: See dictation. I: none. M: none Post-Operative Diagnosis: Same Operation Performed: L foot debridement of necrotic wounds Specimen/Specimens Removed: None Estimated Blood Loss: EBL {In ML}: 10 Blood Products Given: N/A Drains Used: No Drains Post-Op Condition: Good Date of Surgery/Procedure: 06/28/18 Time of Surgery/Procedure: 10:29
[2018-06-28] MEDS ORDERED: HYDROmorphone 0.5 mg/0.5 ml ISec IVP PRN (10:55)
[2018-06-28] MEDS ORDERED: Sodium Chloride 0.9% 1,000 ML IV SCH (11:00)
--- NOTE | 2018-06-28 14:28 | CP.PCM.PN ---
<Krystian Witt - Last Filed: 06/28/18 14:25> Subjective - Date & Time of Evaluation Date of Evaluation: 06/28/18 Time of Evaluation: 14:00 - Subjective Subjective: PGY-1 Medicine Progress Note for Dr. Momin's service Patient seen and examined at bedside today. Patient had left foot debridement today per Podiatry. Patient is stable with minimal pain. Patient denies fevers, chills, chest pain, sob, n/v, constipation or diarrhea, and dysuria. Objective - Vital Signs/Intake and Output Vital Signs (last 24 hours): Temp Pulse Resp BP Pulse Ox 98.6 F 82 12 159/78 H 97 06/28/18 10:27 06/28/18 11:25 06/28/18 11:25 06/28/18 11:25 06/28/18 11:25 Intake and Output: 06/28/18 06/28/18 06:59 18:59 Intake Total 550 135 Balance 550 135 - Medications Medications: Current Medications Acetaminophen (Tylenol 325mg Tab) 650 mg PO Q6 PRN PRN Reason: Pain, Mild (1-3) Amlodipine Besylate (Norvasc) 10 mg PO DAILY [facility] Last Admin: 06/28/18 10:06 Dose: Not Given Chlorthalidone (Hygroton) 25 mg PO DAILY [facility] Last Admin: 06/28/18 10:06 Dose: Not Given Clopidogrel Bisulfate (Plavix) 75 mg PO DAILY [facility] Last Admin: 06/26/18 20:47 Dose: Not Given Dextrose (Dextrose 50% Inj) 0 ml IV STAT PRN; Protocol PRN Reason: Hypoglycemia Protocol Dextrose (Glutose 15) 0 gm PO ONCE PRN; Protocol PRN Reason: Hypoglycemia Protocol Enalapril Maleate (Vasotec) 20 mg PO BID [facility] Last Admin: 06/28/18 10:07 Dose: Not Given Ergocalciferol (Drisdol 50,000 Intl Units Cap) 1 cap PO Q7D [facility] Last Admin: 06/28/18 10:05 Dose: Not Given Ferrous Gluconate (Fergon) 324 mg PO TID [facility] Last Admin: 06/28/18 13:20 Dose: 324 mg Glucagon (Glucagen Diagnostic Kit) 0 mg IM STAT PRN; Protocol PRN Reason: Hypoglycemia Protocol Heparin Sodium (Porcine) (Heparin) 5,000 units SC Q8H [facility] Last Admin: 06/27/18 16:22 Dose: 5,000 units Hydralazine HCl (Apresoline) 100 mg PO BID [facility] Last Admin: 06/28/18 10:05 Dose: Not Given Dextrose (Dextrose 5% In Water 1000 Ml) 1,000 mls @ 0 mls/hr IV .Q0M PRN; Protocol PRN Reason: Hypoglycemia Protocol Piperacillin Sod/Tazobactam (Sod 3.375 gm/ Sodium Chloride) 100 mls @ 200 mls/hr IVPB Q8H [facility]; Protocol Last Admin: 06/28/18 13:20 Dose: 200 mls/hr Influenza Virus Vaccine (Fluzone Quad [id number]) 60 mcg IM .ONCE ONE Stop: 06/29/18 10:01 Insulin Aspart (Novolog) 5 unit SC [facility] Last Admin: 06/28/18 12:31 Dose: 5 units Insulin Aspart (Novolog) 0 unit SC [facility]; Protocol Last Admin: 06/28/18 12:31 Dose: 2 units Insulin Glargine (Lantus) 7 unit SC [facility] Last Admin: 06/27/18 22:04 Dose: Not Given Minoxidil (Minoxidil) 2.5 mg PO DAILY [facility] Last Admin: 06/28/18 10:06 Dose: Not Given Multivitamins (Hexavitamin) 1 tab PO DAILY [facility] Last Admin: 06/28/18 10:06 Dose: Not Given Oxybutynin Chloride (Ditropan Xl) 10 mg PO DAILY [facility] Last Admin: 06/28/18 10:05 Dose: Not Given Oxycodone/Acetaminophen (Percocet 5/325 Mg Tab) 1 tab PO Q4H PRN PRN Reason: Pain, moderate (4-7) Stop: 07/01/18 10:25 Oxycodone/Acetaminophen (Percocet 5/325 Mg Tab) 2 tab PO Q4H PRN PRN Reason: Pain, severe (8-10) Stop: 07/01/18 10:25 Rosuvastatin Calcium (Crestor) 20 mg PO [facility] Last Admin: 06/27/18 22:03 Dose: 20 mg Saccharomyces Boulardii (Florastor) 250 mg PO BID [facility] Last Admin: 06/28/18 10:06 Dose: Not Given Sitagliptin Phosphate (Januvia) 25 mg PO DAILY [facility] Last Admin: 06/28/18 10:06 Dose: Not Given Tamsulosin HCl (Flomax) 0.4 mg PO DAILY [facility] Last Admin: 06/28/18 10:06 Dose: Not Given Thiamine HCl (Vitamin B1 Tab) 100 mg PO BID [facility] Last Admin: 06/28/18 10:07 Dose: Not Given - Labs Labs: 06/28/18 07:23 06/28/18 07:23 PT 11.8 SECONDS (9.7-12.2) 06/28/18 07:23 INR 1.1 06/28/18 07:23 APTT 37 SECONDS (21-34) H 06/28/18 07:23 - Additional Findings Additional findings: - Constitutional Appears: Non-toxic, No Acute Distress - Head Exam Head Exam: NORMAL INSPECTION, NORMOCEPHALIC - Eye Exam Eye Exam: EOMI, Normal appearance. absent: Nystagmus, Scleral icterus - Respiratory Exam Respiratory Exam: Clear to Ausculation Bilateral, NORMAL BREATHING PATTERN. absent: Decreased Breath Sounds, Rales, Rhonchi, Wheezes - Cardiovascular Exam Cardiovascular Exam: REGULAR RHYTHM, +S1, +S2. absent: Tachycardia - GI/Abdominal Exam GI & Abdominal Exam: Soft, Normal Bowel Sounds. absent: Distended, Firm, Guarding, Rigid, Tenderness - Extremities Exam Additional comments: bilateral foot ulcers L big toe continued til 5th toe with black eschar formation. Left foot covered s/p left foot debridement (06/28/18) R forefoot open blister with no granulation tissue; no oozing draining or pus noted, wrap over dressing in place - Neurological Exam Neurological Exam: Alert, Awake, Oriented x3 Neuro motor strength exam: Left Upper Extremity: 5, Right Upper Extremity: 5, Left Lower Extremity: 5, Right Lower Extremity: 5 Additional comments: decreased sensations to light touch and pain in left greater than right in bilateral lower extremities - Psychiatric Exam Psychiatric exam: Normal Affect, Normal Mood - Skin Skin Exam: Intact, Normal Color Assessment and Plan - Assessment and Plan (Free Text) Assessment: Patient is 67 year old male with PMH of HTN, CKD, chronic anemia, uncontrolled DM w/ neuropathy, and hypercholesterolemia is admitted to [facility] for bilateral diabetic foot ulcers. Patient was sent to hospital by Dr. Barrientos, podiatry, and left foot debridement was done on 06/28/18 with no complications. Plan: Diabetic Foot ulcers Heme/Onc Consult: Dr. Cunningham- recommendations appreciated Podiatry Consult: Dr. Barrientos- s/p left foot debridement on 06/28/18 B/L Foot xray (06/26): Soft tissue swelling bilateral ID consult: Dr. Peralta- Sally 3.375g IVPB q8h CXR (06/26/18): no active disease Percocet 5/325mg 1 tab PO q4h PRN/2 tab PO q4h PRN for pain Insulin dependent diabetes HgA1c - 8.9 ISS Stiglipin 25mg PO qd Lispro 5 unit Glargine 7 unit Resistant Hypertension Nephrology consulted: Dr. Strong- recommendations as below Enalapril 20mg PQ q12 Hydralazine 100 mg po bid Norvasc 10mg po daily Chlorthalidone 25mg po daily Minoxidil 2.5 mg PO qd Lipid disorder T; Chol: 238; LDL: 148; HDL 35 Crestor 20mg daily Renal Insufficiency Nephro consult: Dr. Strong - estephania appreciated- multiple studies pending Renal/Bladder US: left kidney cyst Normal C3/C4 complement levels dsDNA ab normal Peripheral neuropathy 2/2 diabetes Arterial Duplex (05/10/18): Normal duplex doppler of B/L lower extremity arteries. Plavix 75mg PO qd - on HOLD BPH Flomax 0.4mg po daily Vitamin D Deficiency Ergocalciferol 1 cap PO q7d Chronic Anemia 2/2 diabetes suspecting anemia of chronic disease H&H stable Ferrous Gluconate 324mg PO TID Prophylactic measures GI prophylaxis: none indicated at this time DVT prophylaxis: SCDs b/l, heparin 5,000 units subQ q8h Krystian Witt PGY-1 Medical management discussed with Dr. Momin <Renetta Momin V - Last Filed: 06/29/18 20:50> Objective - Vital Signs/Intake and Output Vital Signs (last 24 hours): Temp Pulse Resp BP Pulse Ox 98.2 F 87 20 164/82 H 97 06/29/18 15:54 06/29/18 15:54 06/29/18 15:54 06/29/18 17:38 06/29/18 15:54 - Medications Medications: Current Medications Acetaminophen (Tylenol 325mg Tab) 650 mg PO Q6 PRN PRN Reason: Pain, Mild (1-3) Amlodipine Besylate (Norvasc) 10 mg PO DAILY [facility] Last Admin: 06/29/18 10:56 Dose: 10 mg Chlorthalidone (Hygroton) 25 mg PO DAILY [facility] Last Admin: 06/29/18 10:57 Dose: 25 mg Clopidogrel Bisulfate (Plavix) 75 mg PO DAILY [facility] Last Admin: 06/26/18 20:47 Dose: Not Given Dextrose (Dextrose 50% Inj) 0 ml IV STAT PRN; Protocol PRN Reason: Hypoglycemia Protocol Dextrose (Glutose 15) 0 gm PO ONCE PRN; Protocol PRN Reason: Hypoglycemia Protocol Docusate Sodium (Colace) 100 mg PO BID [facility] Last Admin: 06/29/18 17:37 Dose: 100 mg Enalapril Maleate (Vasotec) 20 mg PO BID [facility] Last Admin: 06/29/18 17:38 Dose: 20 mg Ergocalciferol (Drisdol 50,000 Intl Units Cap) 1 cap PO Q7D [facility] Last Admin: 06/28/18 10:05 Dose: Not Given Ferrous Gluconate (Fergon) 324 mg PO TID [facility] Last Admin: 06/29/18 17:37 Dose: 324 mg Glucagon (Glucagen Diagnostic Kit) 0 mg IM STAT PRN; Protocol PRN Reason: Hypoglycemia Protocol Heparin Sodium (Porcine) (Heparin) 5,000 units SC Q8H [facility] Last Admin: 06/29/18 17:39 Dose: 5,000 units Hydralazine HCl (Apresoline) 100 mg PO BID [facility] Last Admin: 06/29/18 17:38 Dose: 100 mg Piperacillin Sod/Tazobactam (Sod 3.375 gm/ Sodium Chloride) 100 mls @ 200 mls /hr IVPB Q8H [facility]; Protocol Last Admin: 06/29/18 13:08 Dose: 200 mls/hr Insulin Aspart (Novolog) 5 unit SC [facility] Last Admin: 06/29/18 17:45 Dose: 5 units Insulin Aspart (Novolog) 0 unit SC [facility]; Protocol Last Admin: 06/29/18 17:44 Dose: 4 units Insulin Glargine (Lantus) 7 unit SC HS [facility] Last Admin: 06/28/18 21:32 Dose: 7 unit Minoxidil (Minoxidil) 2.5 mg PO DAILY [facility] Last Admin: 06/29/18 13:57 Dose: 2.5 mg Multivitamins (Hexavitamin) 1 tab PO DAILY [facility] Last Admin: 06/29/18 10:56 Dose: 1 tab Oxybutynin Chloride (Ditropan Xl) 10 mg PO DAILY [facility] Last Admin: 06/29/18 10:57 Dose: 10 mg Oxycodone/Acetaminophen (Percocet 5/325 Mg Tab) 1 tab PO Q4H PRN PRN Reason: Pain, moderate (4-7) Stop: 07/01/18 10:25 Oxycodone/Acetaminophen (Percocet 5/325 Mg Tab) 2 tab PO Q4H PRN PRN Reason: Pain, severe (8-10) Stop: 07/01/18 10:25 Rosuvastatin Calcium (Crestor) 20 mg PO HS [facility] Last Admin: 06/28/18 21:32 Dose: 20 mg Saccharomyces Boulardii (Florastor) 250 mg PO BID [facility] Last Admin: 06/29/18 17:37 Dose: 250 mg Sitagliptin Phosphate (Januvia) 25 mg PO DAILY [facility] Last Admin: 06/29/18 10:56 Dose: 25 mg Tamsulosin HCl (Flomax) 0.4 mg PO DAILY [facility] Last Admin: 06/29/18 11:00 Dose: 0.4 mg Thiamine HCl (Vitamin B1 Tab) 100 mg PO BID [facility] Last Admin: 06/29/18 17:47 Dose: 100 mg - Labs Labs: 06/29/18 06:58 06/29/18 06:58 PT 11.8 SECONDS (9.7-12.2) 06/28/18 07:23 INR 1.1 06/28/18 07:23 APTT 37 SECONDS (21-34) H 06/28/18 07:23 Attending/Attestation - Attestation I have personally seen and examined this patient.: Yes I have fully participated in the care of the patient.: Yes I have reviewed all pertinent clinical information, including history, physical exam and plan: Yes Notes (Text): This is late computer entry for 06/28/18. Patient seen, examined, and case discussed with day-time resident. Patient seen post OR, patient reports mild pain. Will f/u with podiatry regarding surgery. Renal has adjusted hypertensive agents given uncontrolled blood pressure. Infectious disease has changed IV abx. Assessment/Plan 1) Diabetic Foot ulcers * Heme/Onc Consult: Dr. Cunningham- recommendations appreciated; Platelet function test: 95 * may go to OR * Podiatry Consult: Dr. Barrientos on help appreciated * s/p debridement 06/28/18 * B/L Foot xray (06/26): Soft tissue swelling bilateral * ID consult: Dr. Leyva on help appreciated * Zosyn 3.375 IVPB Q8H (active since 06/27/18) * CXR (06/26/18): no active disease * BLood culture: negative 2) Insulin dependent diabetes * HgA1c - 8.9 * ISS * Januvia 25mg POqdaily * Novolog 5 unit SubqAC * Lantus 7 unit subHS 3) Hypertension * Nephrology consulted: Dr. Strong- recommendations as below * Enalapril 20mg PQ q12 * Hydralazine 100 mg po bid * Norvasc 10mg po daily * Chlorthalidone 25mg po daily * Minoxidil 2.5mg PO daily 4) Lipid disorder * T; Chol: 238; LDL: 148; HDL 35 * Crestor 20mg QHS 5) Renal Insufficiency * Nephro consult: Dr. Tae best appreciated * Check urine analysis, spot protein/creatinine, albumin/creatinine ratio * Check GN work up as C3, C4, KRISTEN, Anti dsDNA, HIV/Hep B and Hep C serology * Anemia work up with TSAT/Ferritin/Vitamin B12/folate, serum protein electrophoresis with immunofixation, serum free light chain assay ([place]/Lambda) * Check for 25-OH vitamin D, iPTH, phosphorus level. * Secondary HTN work up with plasma renin/aldosterone, plasma metanephrine and renal artery Doppler to r/o renal artery stenosis * Renal/Bladder US: left kidney cyst 6) Diabetic Peripheral neuropathy * Arterial Duplex (05/10/18): Normal duplex doppler of B/L lower extremity arteries. * Plavix 75mg PO qd - on HOLD 7) BPH * Flomax 0.4mg po daily 8) Chronic Anemia * 2/2 diabetes * suspecting anemia of chronic disease * H&H stable 9) Prophylactic measures * GI prophylaxis: none indicated at this time * DVT prophylaxis: SCDs b/l, heparin 5,000 units subQ q8h- will be held secondary to procedure
[2018-06-28 15:11] LABS: TOTAL PSA 0.2 ng/mL (< or = 4.0)
[2018-06-28 17:52] VITALS: RESP 20
[2018-06-28] MEDS: (Lantus) Insulin Glargine, Recombinant SC SCH (21:32)
--- NOTE | 2018-06-28 21:43 | CP.PCM.PN ---
Subjective - Date & Time of Evaluation Date of Evaluation: 06/28/18 Time of Evaluation: 09:00 - Subjective Subjective: s/p debridement left foot IV rx in progress Objective - Vital Signs/Intake and Output Vital Signs (last 24 hours): Temp Pulse Resp BP Pulse Ox 97.9 F 80 20 178/87 H 97 06/28/18 16:00 06/28/18 16:00 06/28/18 16:00 06/28/18 18:07 06/28/18 16:00 Intake and Output: 06/28/18 06/29/18 18:59 06:59 Intake Total 135 Balance 135 - Medications Medications: Current Medications Acetaminophen (Tylenol 325mg Tab) 650 mg PO Q6 PRN PRN Reason: Pain, Mild (1-3) Amlodipine Besylate (Norvasc) 10 mg PO DAILY [facility] Last Admin: 06/28/18 10:06 Dose: Not Given Chlorthalidone (Hygroton) 25 mg PO DAILY [facility] Last Admin: 06/28/18 10:06 Dose: Not Given Clopidogrel Bisulfate (Plavix) 75 mg PO DAILY [facility] Last Admin: 06/26/18 20:47 Dose: Not Given Dextrose (Dextrose 50% Inj) 0 ml IV STAT PRN; Protocol PRN Reason: Hypoglycemia Protocol Dextrose (Glutose 15) 0 gm PO ONCE PRN; Protocol PRN Reason: Hypoglycemia Protocol Enalapril Maleate (Vasotec) 20 mg PO BID [facility] Last Admin: 06/28/18 18:07 Dose: 20 mg Ergocalciferol (Drisdol 50,000 Intl Units Cap) 1 cap PO Q7D [facility] Last Admin: 06/28/18 10:05 Dose: Not Given Ferrous Gluconate (Fergon) 324 mg PO TID [facility] Last Admin: 06/28/18 18:05 Dose: 324 mg Glucagon (Glucagen Diagnostic Kit) 0 mg IM STAT PRN; Protocol PRN Reason: Hypoglycemia Protocol Heparin Sodium (Porcine) (Heparin) 5,000 units SC Q8H [facility] Last Admin: 06/27/18 16:22 Dose: 5,000 units Hydralazine HCl (Apresoline) 100 mg PO BID [facility] Last Admin: 06/28/18 18:05 Dose: 100 mg Dextrose (Dextrose 5% In Water 1000 Ml) 1,000 mls @ 0 mls/hr IV .Q0M PRN; Protocol PRN Reason: Hypoglycemia Protocol Piperacillin Sod/Tazobactam (Sod 3.375 gm/ Sodium Chloride) 100 mls @ 200 mls/hr IVPB Q8H [facility]; Protocol Last Admin: 06/28/18 21:29 Dose: 200 mls/hr Influenza Virus Vaccine (Fluzone Quad [id number]) 60 mcg IM .ONCE ONE Stop: 06/29/18 10:01 Insulin Aspart (Novolog) 5 unit SC [facility] Last Admin: 06/28/18 21:30 Dose: Not Given Insulin Aspart (Novolog) [address] [facility]; Protocol Last Admin: 06/28/18 21:30 Dose: Not Given Insulin Glargine (Lantus) 7 unit SC [facility] Last Admin: 06/28/18 21:32 Dose: 7 unit Minoxidil (Minoxidil) 2.5 mg PO DAILY [facility] Last Admin: 06/28/18 10:06 Dose: Not Given Multivitamins (Hexavitamin) 1 tab PO DAILY [facility] Last Admin: 06/28/18 10:06 Dose: Not Given Oxybutynin Chloride (Ditropan Xl) 10 mg PO DAILY [facility] Last Admin: 06/28/18 10:05 Dose: Not Given Oxycodone/Acetaminophen (Percocet 5/325 Mg Tab) 1 tab PO Q4H PRN PRN Reason: Pain, moderate (4-7) Stop: 07/01/18 10:25 Oxycodone/Acetaminophen (Percocet 5/325 Mg Tab) 2 tab PO Q4H PRN PRN Reason: Pain, severe (8-10) Stop: 07/01/18 10:25 Rosuvastatin Calcium (Crestor) 20 mg PO [facility] Last Admin: 06/28/18 21:32 Dose: 20 mg Saccharomyces Boulardii (Florastor) 250 mg PO BID [facility] Last Admin: 06/28/18 18:05 Dose: 250 mg Sitagliptin Phosphate (Januvia) 25 mg PO DAILY [facility] Last Admin: 06/28/18 10:06 Dose: Not Given Tamsulosin HCl (Flomax) 0.4 mg PO DAILY [facility] Last Admin: 06/28/18 10:06 Dose: Not Given Thiamine HCl (Vitamin B1 Tab) 100 mg PO BID [facility] Last Admin: 06/28/18 18:07 Dose: 100 mg - Labs Labs: 06/28/18 07:23 06/28/18 07:23 PT 11.8 SECONDS (9.7-12.2) 06/28/18 07:23 INR 1.1 06/28/18 07:23 APTT 37 SECONDS (21-34) H 06/28/18 07:23 - Head Exam Head Exam: ATRAUMATIC - Eye Exam Eye Exam: Normal appearance Pupil Exam: NORMAL ACCOMODATION - ENT Exam ENT Exam: Mucous Membranes Dry - Neck Exam Neck Exam: absent: Lymphadenopathy - Respiratory Exam Respiratory Exam: Clear to Ausculation Bilateral - Cardiovascular Exam Cardiovascular Exam: REGULAR RHYTHM, +S1, +S2 - GI/Abdominal Exam GI & Abdominal Exam: Distended, Soft - Rectal Exam Rectal Exam: Deferred - Exam Exam: NORMAL INSPECTION - Extremities Exam Extremities Exam: absent: Calf Tenderness - Back Exam Back Exam: absent: CVA tenderness (L), CVA tenderness (R) - Neurological Exam Neurological Exam: Awake Assessment and Plan (1) Cellulitis of foot, left Status: Acute (2) Diabetic foot ulcer Status: Acute - Assessment and Plan (Free Text) Assessment: cont iv rx as ordered
[2018-06-29] MEDS: Piperacillin/Tazobact 3.375 GM in Sodium Chloride 100 ML IVPB SCH ×2 (05:15→13:08)
[2018-06-29 07:13] LABS: BASO # 0.1 K/uL (0.0-0.2); EOS # 0.9 K/uL (0.0-0.7); EOS % 10.8 % (0.0-4.0); HEMOGLOBIN 10.6 g/dL (12.0-18.0); LYMPH # 1.8 K/uL (1.0-4.3); MEAN CELL VOLUME 80.6 fL (80.0-94.0); MEAN CORPUSCULAR HEMOGLOBIN 27.5 pg (27.0-31.0); MEAN CORPUSCULAR HGB CONC 34.1 g/dL (33.0-37.0); MEAN PLATELET VOLUME 8.1 fL (7.2-11.7); MONO # 0.8 K/uL (0.0-0.8); MONO % 8.6 % (0.0-10.0); NEUT # 5.2 K/uL (1.8-7.0); NEUT % 59.6 % (50.0-75.0); RBC 3.85 Mil/uL (4.40-5.90); RED CELL DISTRIBUTION WIDTH 14.6 % (11.5-14.5); WHITE BLOOD COUNT 8.7 K/uL (4.8-10.8)
[2018-06-29 07:39] LABS: ALB/GLOB RATIO 0.9 (1.0-2.1); ALBUMIN 2.9 g/dL (3.5-5.0)
[2018-06-29] MEDS: (Novolog) Insulin Aspart, Recombinant 100 u/ml 10 ml vial SC SCH ×6 (07:45→17:45)
--- NOTE | 2018-06-29 09:16 | CP.PCM.PN ---
Subjective - Date & Time of Evaluation Date of Evaluation: 06/29/18 Time of Evaluation: 10:34 - Subjective Subjective: Podiatry Progress note: Dr. Barrientos 67 year old male was evaluated 1 day s/p left foot wound debridement. Patient is AAOx3 and appears in NAD. Denies of any pain to the foot today. Denies of any acute overnight events. No recent F/N/V/C/SOB/CP/headache. No other pedal complains. Objective - Vital Signs/Intake and Output Vital Signs (last 24 hours): Temp Pulse Resp BP Pulse Ox 97.6 F 70 20 169/79 H 98 06/29/18 00:00 06/29/18 00:00 06/29/18 00:00 06/29/18 00:00 06/29/18 00:00 Intake and Output: 06/29/18 06/29/18 06:59 18:59 Intake Total 550 Balance 550 - Medications Medications: Current Medications Acetaminophen (Tylenol 325mg Tab) 650 mg PO Q6 PRN PRN Reason: Pain, Mild (1-3) Amlodipine Besylate (Norvasc) 10 mg PO DAILY [facility] Last Admin: 06/28/18 10:06 Dose: Not Given Chlorthalidone (Hygroton) 25 mg PO DAILY [facility] Last Admin: 06/28/18 10:06 Dose: Not Given Clopidogrel Bisulfate (Plavix) 75 mg PO DAILY [facility] Last Admin: 06/26/18 20:47 Dose: Not Given Dextrose (Dextrose 50% Inj) 0 ml IV STAT PRN; Protocol PRN Reason: Hypoglycemia Protocol Dextrose (Glutose 15) 0 gm PO ONCE PRN; Protocol PRN Reason: Hypoglycemia Protocol Docusate Sodium (Colace) 100 mg PO BID [facility] Last Admin: 06/28/18 22:20 Dose: 100 mg Enalapril Maleate (Vasotec) 20 mg PO BID [facility] Last Admin: 06/28/18 18:07 Dose: 20 mg Ergocalciferol (Drisdol 50,000 Intl Units Cap) 1 cap PO Q7D [facility] Last Admin: 06/28/18 10:05 Dose: Not Given Ferrous Gluconate (Fergon) 324 mg PO TID [facility] Last Admin: 06/28/18 18:05 Dose: 324 mg Glucagon (Glucagen Diagnostic Kit) 0 mg IM STAT PRN; Protocol PRN Reason: Hypoglycemia Protocol Heparin Sodium (Porcine) (Heparin) 5,000 units SC Q8H [facility] Last Admin: 06/29/18 07:57 Dose: 5,000 units Hydralazine HCl (Apresoline) 100 mg PO BID [facility] Last Admin: 06/28/18 18:05 Dose: 100 mg Dextrose (Dextrose 5% In Water 1000 Ml) 1,000 mls @ 0 mls/hr IV .Q0M PRN; Protocol PRN Reason: Hypoglycemia Protocol Piperacillin Sod/Tazobactam (Sod 3.375 gm/ Sodium Chloride) 100 mls @ 200 mls/hr IVPB Q8H [facility]; Protocol Last Admin: 06/29/18 05:15 Dose: 200 mls/hr Influenza Virus Vaccine (Fluzone Quad [id number]) 60 mcg IM .ONCE ONE Stop: 06/29/18 10:01 Insulin Aspart (Novolog) 5 unit SC [facility] Last Admin: 06/29/18 07:45 Dose: 5 units Insulin Aspart (Novolog) 0 unit SC [facility]; Protocol Last Admin: 06/29/18 07:46 Dose: 4 units Insulin Glargine (Lantus) 7 unit SC [facility] Last Admin: 06/28/18 21:32 Dose: 7 unit Minoxidil (Minoxidil) 2.5 mg PO DAILY [facility] Last Admin: 06/28/18 10:06 Dose: Not Given Multivitamins (Hexavitamin) 1 tab PO DAILY [facility] Last Admin: 06/28/18 10:06 Dose: Not Given Oxybutynin Chloride (Ditropan Xl) 10 mg PO DAILY [facility] Last Admin: 06/28/18 10:05 Dose: Not Given Oxycodone/Acetaminophen (Percocet 5/325 Mg Tab) 1 tab PO Q4H PRN PRN Reason: Pain, moderate (4-7) Stop: 07/01/18 10:25 Oxycodone/Acetaminophen (Percocet 5/325 Mg Tab) 2 tab PO Q4H PRN PRN Reason: Pain, severe (8-10) Stop: 07/01/18 10:25 Rosuvastatin Calcium (Crestor) 20 mg PO [facility] Last Admin: 06/28/18 21:32 Dose: 20 mg Saccharomyces Boulardii (Florastor) 250 mg PO BID [facility] Last Admin: 06/28/18 18:05 Dose: 250 mg Sitagliptin Phosphate (Januvia) 25 mg PO DAILY [facility] Last Admin: 06/28/18 10:06 Dose: Not Given Tamsulosin HCl (Flomax) 0.4 mg PO DAILY [facility] Last Admin: 06/28/18 10:06 Dose: Not Given Thiamine HCl (Vitamin B1 Tab) 100 mg PO BID [facility] Last Admin: 06/28/18 18:07 Dose: 100 mg - Labs Labs: 06/29/18 06:58 06/29/18 06:58 PT 11.8 SECONDS (9.7-12.2) 06/28/18 07:23 INR 1.1 06/28/18 07:23 APTT 37 SECONDS (21-34) H 06/28/18 07:23 - Constitutional Appears: Well, Non-toxic, No Acute Distress - Extremities Exam Additional comments: Bilateral LE exam: VASC: DP/PT pulses are palpable 1/4, Temp gradient: warm to cool from proximal to distal B/L, Cap refill approx 3 sec to all digits, no pitting or non-pitting edema noted DERM: LLE: Ulceration noted to plantar medial arch measuring approximately 1.5 cm x .8 cm x .2 cm, 85% granular base 15% fibrosis, no malodor, no purulence. RLE: wound base on the digits appears mainly grannular with minimal fibrosis, mild yesenia-wound maceration noted, no purulence drainage, no active drainage, probe to bone on the distal aspect of the 3rd digit, no malodor, no yesenia-wound erythema NEURO: Gross sensation intact, protective sensation diminished/absent ORTHO: No tenderness to palpation of feet bilaterally - Neurological Exam Neurological Exam: Alert, Awake, Oriented x3 - Psychiatric Exam Psychiatric exam: Normal Affect, Normal Mood Assessment and Plan - Assessment and Plan (Free Text) Assessment: 67 year old male patient evaluated for B/L foot wounds 1). 1 day s/p left foot wound debridement 2). Right plantar midfoot wound Plan: Patient seen and evaluated Discussed plan with attending Dr. Barrientos Labs, vitals and charts reviewed VSS; No leukocytosis From previous visit (vascular consult): - As per Dr. Rivas: There are primarily triphasic waveforms of the inflow vessels, The tibial waveforms are biphasic. Recommend continued medical therapy with antibiotics. No indication for angiogram ID consult: Dr. Leyva - Continue IV abx as per ALEXIS - Sally Intra-op bone bx: pending Wound dressed with betadine, xeroform, DSD Patient is stable from podiatry standpoint WBAT to the heel in a surgical shoe to LLE Will continue to follow patient while in-house
[2018-06-29] MEDS ORDERED: Influenza Vaccine 60 MCG/0.5 ML SYR (3 yr & up) IM ONE (10:00)
[2018-06-29] MEDS: Multiple Vitamins Tab PO SCH (10:56)
[2018-06-29] MEDS: Saccharomyces Boulardi 250 mg Cap PO SCH ×2 (10:56→17:37)
[2018-06-29] MEDS: Oxybutynin XL 10 mg Tab PO SCH (10:57)
--- NOTE | 2018-06-29 14:59 | CP.PCM.PN ---
Subjective - Date & Time of Evaluation Date of Evaluation: 06/29/18 Time of Evaluation: 14:57 - Subjective Subjective: Nephrology Consultation Note: Assessment: Stable DIabetic foot ulcer s/p left foot debridement Diabetic chronic Kidney Disease (E11.22) Hypertensive Chronic Kidney Disease (I12.9), uncontrolled severe HTN with urg ency Chronic Kidney Disease (N18.3) Stage 3 with 4 gram albuminuria (R80.9) likely due to DM Anemia (D64.9), left renal cyst ? BPH Plan No acute need for renal replacement therapy at this time. Hypertension control with meds as ordered. Maintain hemodynamics stable. Avoid hypotension. Patient on ACEI, continue same. added cholrthalidone and increased hydralazine and minoxidil. plan to add aldoactone in future depending upon renin/isrrael level. Monitor Input/Output, daily weights and renal function with basic metabolic panel continue with flomax 0.4 mg/day. on statins, continue added weekly Vit D Check urine analysis, spot protein/creatinine, albumin/creatinine ratio Check GN work up as C3, C4, KRISTEN, Anti dsDNA, HIV/Hep B and Hep C serology Anemia work up with TSAT/Ferritin/Vitamin B12/folate, serum protein electrophoresis with immunofixation, serum free light chain assay ([place]/Lambda) Check for 25-OH vitamin D, iPTH, phosphorus level. Secondary HTN work up with plasma renin/aldosterone, plasma metanephrine and renal artery Doppler to r/o renal artery stenosis Dose meds/antibiotics for reduced GFR. Avoid fleets enema/magnesium based laxatives. Avoid nephrotoxins/NSAIDs/ iodinated contrast (unless needed emergently) Glycemic control Further work up/management as per primary team Thanks for allowing me to participate in care of your patient. Will follow pat ient with you. Please call if any Qs Dr Heath Strong Office: [phone] Chief Complaint; leg wound Reason for consult: CKD and HTN HPI: Pt is a with hx of diabetes Mellitus (>20 years) with retinopathy and neuropathy, hypertension (years) presented with complaints of feet ulcers and renal consult for CKD/HTN management. pt not aware about CKD in past. Denies OTC/herbal meds or NSAIDs No recent iodinated contrast exposure. No obvious episodes of low BP. feels in usual health. reports some hesitancy in urination. non smoker. no etoh/drugs ROS: Cardiovascular: No chest pain. Pulmonary: No shortness of breath Gastrointestinal: denies abdominal pain No nausea. No vomiting. Genitourinary: No pain while urinating. Denies blood in urine. All other negative except as mentioned in HPI Physical Examination: General Appearance: Comfortable, in no acute respiratory distress, co-operative . Vitals reviewed and noted as below Head; Atraumatic, normocephalic ENT: no ulcers no thrush. Tongue is midline. Oropharynx: no rash or ulcers. EYES: Pupils are equal, round and reactive to light accommodation. Eye muscles and extraocular movement intact. Sclera is anicteric. Neck; supple no lymphadenopathy, no thyromegaly or bruit Lungs: Normal respiratory rate/effort. Breath sounds bilateral equal and clear Heart: Normal rate. s1s2 normal. No rub or gallop. Extremities: no edema. No varicose veins. feets dressed Neurological: Patient is alert, awake and oriented to person, place and time. No focal deficit. Strength bilateral appropriate and equal Skin: Warm and dry. Normal turgor. No rash. Palpitation: Normal elasticity for age Abdomen: Abdomen is soft. Bowel sounds +. There is no abdominal tenderness, no guarding/rigidity no organomegaly Psych: limited insight and normal affect/mood MSK: no joint tenderness or swelling. Digits and nails normal, no deformity : kidney or bladder not palpable Labs/imaging reviewed. Past medical history, past surgical history, family history, social history, allergy reviewed and noted as below Family hx: no hx of CKD. Rest non-contributory left renal cyst 1 cm Objective - Vital Signs/Intake and Output Vital Signs (last 24 hours): Temp Pulse Resp BP Pulse Ox 97.6 F 65 20 170/80 H 98 06/29/18 07:00 06/29/18 07:00 06/29/18 07:00 06/29/18 10:56 06/29/18 07:00 Intake and Output: 06/29/18 06/29/18 06:59 18:59 Intake Total 550 Balance 550 - Medications Medications: Current Medications Acetaminophen (Tylenol 325mg Tab) 650 mg PO Q6 PRN PRN Reason: Pain, Mild (1-3) Amlodipine Besylate (Norvasc) 10 mg PO DAILY [facility] Last Admin: 06/29/18 10:56 Dose: 10 mg Chlorthalidone (Hygroton) 25 mg PO DAILY [facility] Last Admin: 06/29/18 10:57 Dose: 25 mg Clopidogrel Bisulfate (Plavix) 75 mg PO DAILY [facility] Last Admin: 06/26/18 20:47 Dose: Not Given Dextrose (Dextrose 50% Inj) 0 ml IV STAT PRN; Protocol PRN Reason: Hypoglycemia Protocol Dextrose (Glutose 15) 0 gm PO ONCE PRN; Protocol PRN Reason: Hypoglycemia Protocol Docusate Sodium (Colace) 100 mg PO BID [facility] Last Admin: 06/29/18 10:56 Dose: 100 mg Enalapril Maleate (Vasotec) 20 mg PO BID [facility] Last Admin: 06/29/18 10:56 Dose: 20 mg Ergocalciferol (Drisdol 50,000 Intl Units Cap) 1 cap PO Q7D [facility] Last Admin: 06/28/18 10:05 Dose: Not Given Ferrous Gluconate (Fergon) 324 mg PO TID [facility] Last Admin: 06/29/18 13:14 Dose: 324 mg Glucagon (Glucagen Diagnostic Kit) 0 mg IM STAT PRN; Protocol PRN Reason: Hypoglycemia Protocol Heparin Sodium (Porcine) (Heparin) 5,000 units SC Q8H [facility] Last Admin: 06/29/18 07:57 Dose: 5,000 units Hydralazine HCl (Apresoline) 100 mg PO BID [facility] Last Admin: 06/29/18 10:56 Dose: 100 mg Dextrose (Dextrose 5% In Water 1000 Ml) 1,000 mls @ 0 mls/hr IV .Q0M PRN; Protocol PRN Reason: Hypoglycemia Protocol Piperacillin Sod/Tazobactam (Sod 3.375 gm/ Sodium Chloride) 100 mls @ 200 mls/hr IVPB Q8H [facility]; Protocol Last Admin: 06/29/18 13:08 Dose: 200 mls/hr Insulin Aspart (Novolog) 5 unit SC ACHS [facility] Last Admin: 06/29/18 12:17 Dose: 5 units Insulin Aspart (Novolog) 0 unit SC ACHS [facility]; Protocol Last Admin: 06/29/18 11:38 Dose: Not Given Insulin Glargine (Lantus) 7 unit SC HS [facility] Last Admin: 06/28/18 21:32 Dose: 7 unit Minoxidil (Minoxidil) 2.5 mg PO DAILY [facility] Last Admin: 06/29/18 13:57 Dose: 2.5 mg Multivitamins (Hexavitamin) 1 tab PO DAILY [facility] Last Admin: 06/29/18 10:56 Dose: 1 tab Oxybutynin Chloride (Ditropan Xl) 10 mg PO DAILY [facility] Last Admin: 06/29/18 10:57 Dose: 10 mg Oxycodone/Acetaminophen (Percocet 5/325 Mg Tab) 1 tab PO Q4H PRN PRN Reason: Pain, moderate (4-7) Stop: 07/01/18 10:25 Oxycodone/Acetaminophen (Percocet 5/325 Mg Tab) 2 tab PO Q4H PRN PRN Reason: Pain, severe (8-10) Stop: 07/01/18 10:25 Rosuvastatin Calcium (Crestor) 20 mg PO HS [facility] Last Admin: 06/28/18 21:32 Dose: 20 mg Saccharomyces Boulardii (Florastor) 250 mg PO BID [facility] Last Admin: 06/29/18 10:56 Dose: 250 mg Sitagliptin Phosphate (Januvia) 25 mg PO DAILY [facility] Last Admin: 06/29/18 10:56 Dose: 25 mg Tamsulosin HCl (Flomax) 0.4 mg PO DAILY [facility] Last Admin: 06/29/18 11:00 Dose: 0.4 mg Thiamine HCl (Vitamin B1 Tab) 100 mg PO BID [facility] Last Admin: 06/29/18 11:00 Dose: 100 mg - Labs Labs: 06/29/18 06:58 06/29/18 06:58 PT 11.8 SECONDS (9.7-12.2) 06/28/18 07:23 INR 1.1 06/28/18 07:23 APTT 37 SECONDS (21-34) H 06/28/18 07:23
[2018-06-29 15:58] VITALS: BP 164/82; PULSE 87; TEMP 98.2; O2SAT 97
[2018-06-29] MEDS ORDERED: POLYETHYLENE GLYCOL 3350 17 GM/Dose PACKET PO ONE (16:00)
--- NOTE | 2018-06-29 16:35 | CP.PCM.DIS ---
<Krystian Witt - Last Filed: 06/29/18 16:41> Provider - Provider Date of Admission: 06/26/18 13:12 Attending physician: Renetta Momin DO Consults: 06/26/18 15:11 Infectious Disease Consult Routine Comment: Consulting Provider: Jeovany Leyva Consulting Physician: Jeovany Leyva Reason for Consult: Diabetic foot ulcer; Abx management for + cx Nephrology Consult Routine Comment: Consulting Provider: Heath Strong Consulting Physician: Heath Strong Reason for Consult: MARTHA on CKD 06/26/18 15:43 Infectious Disease Consult Routine Comment: Consulting Provider: Jeovany Leyva Consulting Physician: Jeovany Leyva Reason for Consult: Ischemic wounds left foot 06/26/18 15:59 Podiatry Consult Routine Comment: Consulting Provider: Michoacano Barrientos Consulting Physician: Michoacano Barrientos Reason for Consult: bilateral foot ulcers 06/27/18 11:28 Hematology Oncology Consult Routine Comment: Consulting Provider: Joy Cunningham Consulting Physician: Joy Cunningham Reason for Consult: concern for bleeding; plavix on hold; PFT pending (platelet) Time Spent in preparation of Discharge (in minutes): 45 Hospital Course - Lab Results Lab Results: Micro Results 06/26/18 11:33 Blood Blood Culture - Preliminary NO GROWTH AFTER 3 DAYS 06/26/18 11:16 Blood Blood Culture - Preliminary NO GROWTH AFTER 3 DAYS Most Recent Lab Values WBC 8.7 K/uL (4.8-10.8) 06/29/18 06:58 RBC 3.85 Mil/uL (4.40-5.90) L 06/29/18 06:58 Hgb 10.6 g/dL (12.0-18.0) L 06/29/18 06:58 Hct 31.1 % (35.0-51.0) L 06/29/18 06:58 MCV 80.6 fL (80.0-94.0) 06/29/18 06:58 MCH 27.5 pg (27.0-31.0) 06/29/18 06:58 MCHC 34.1 g/dL (33.0-37.0) 06/29/18 06:58 RDW 14.6 % (11.5-14.5) H 06/29/18 06:58 Plt Count 250 K/uL (130-400) 06/29/18 06:58 MPV 8.1 fL (7.2-11.7) 06/29/18 06:58 Neut % (Auto) 59.6 % (50.0-75.0) 06/29/18 06:58 Lymph % (Auto) 20.0 % (20.0-40.0) 06/29/18 06:58 Ramsey % (Auto) 8.6 % (0.0-10.0) 06/29/18 06:58 Eos % (Auto) 10.8 % (0.0-4.0) H 06/29/18 06:58 Baso % (Auto) 1.0 % (0.0-2.0) 06/29/18 06:58 Neut # (Auto) 5.2 K/uL (1.8-7.0) 06/29/18 06:58 Lymph # (Auto) 1.8 K/uL (1.0-4.3) 06/29/18 06:58 Ramsey # (Auto) 0.8 K/uL (0.0-0.8) 06/29/18 06:58 Eos # (Auto) 0.9 K/uL (0.0-0.7) H 06/29/18 06:58 Baso # (Auto) 0.1 K/uL (0.0-0.2) 06/29/18 06:58 PT 11.8 SECONDS (9.7-12.2) 06/28/18 07:23 INR 1.1 06/28/18 07:23 APTT 37 SECONDS (21-34) H 06/28/18 07:23 Plt Function Assay 95 K/uL 06/27/18 14:10 Sodium 135 mmol/L (132-148) 06/29/18 06:58 Potassium 4.4 mmol/L (3.6-5.2) 06/29/18 06:58 Chloride 101 mmol/L (98-107) 06/29/18 06:58 Carbon Dioxide 26 mmol/L (22-30) 06/29/18 06:58 Anion Gap 13 (10-20) 06/29/18 06:58 BUN 35 mg/dL (9-20) H 06/29/18 06:58 Creatinine 2.1 mg/dL (0.8-1.5) H 06/29/18 06:58 Est GFR ( Amer) 39 06/29/18 06:58 Est GFR (Non-Af Amer) 32 06/29/18 06:58 POC Glucose (mg/dL) 143 mg/dL (65-110) H 06/29/18 11:16 Random Glucose 212 mg/dL (75-110) H 06/29/18 06:58 Hemoglobin A1c 8.9 % (4.2-6.5) H 06/26/18 19:34 Calcium 8.0 mg/dl (8.6-10.4) L 06/29/18 06:58 Phosphorus 3.8 mg/dL (2.5-4.5) 06/29/18 06:58 Magnesium 1.8 mg/dL (1.6-2.3) 06/29/18 06:58 Iron 67 ug/dL (49-181) 06/27/18 14:13 TIBC 235 ug/dL (250-450) L 06/27/18 14:13 % Saturation 28 (20-55) 06/27/18 14:13 Ferritin 68.2 ng/mL 06/27/18 14:13 Total Bilirubin 0.4 mg/dL (0.2-1.3) 06/29/18 06:58 AST 18 U/L (17-59) 06/29/18 06:58 ALT 14 U/L (21-72) L 06/29/18 06:58 Alkaline Phosphatase 73 U/L (38-126) 06/29/18 06:58 Total Protein 6.2 g/dL (6.3-8.3) L 06/29/18 06:58 Total Protein (PEP) 5.9 g/dL (6.1-8.1) L 06/28/18 07:23 Albumin 2.9 g/dL (3.5-5.0) L 06/29/18 06:58 Globulin 3.3 gm/dL (2.2-3.9) 06/29/18 06:58 Albumin/Globulin Ratio 0.9 (1.0-2.1) L 06/29/18 06:58 Triglycerides 230 mg/dL (0-149) H D 06/26/18 19:34 Cholesterol 238 mg/dL (0-199) H 06/26/18 19:34 LDL Cholesterol Direct 148 mg/dL (0-129) H 06/26/18 19:34 HDL Cholesterol 35 mg/dL (30-70) 06/26/18 19:34 Free PSA 0.1 ng/mL 06/26/18 19:34 % Free PSA 50 % (calc) (>25) 06/26/18 19:34 Total PSA 0.2 ng/mL (< or = 4.0) 06/26/18 19:34 Vitamin B12 578 pg/mL (239-931) 06/28/18 07:23 25-OH Vitamin D Total < 12.8 NG/ML (30.0-100.0) L 06/28/18 07:23 Folate 13.9 ng/mL 06/27/18 14:13 TSH 3rd Generation 5.53 mIU/L (0.46-4.68) H 06/28/18 07:23 PTH Intact Whole Molec 34 pg/mL (14-64) 06/27/18 14:13 Urine Color Yellow (YELLOW) 06/27/18 20:21 Urine Clarity Clear (Clear) 06/27/18 20:21 Urine pH 6.0 (5.0-8.0) 06/27/18 20:21 Ur Specific [place] 1.017 (1.003-1.030) 06/27/18 20:21 Urine Protein 3+ mg/dL (NEGATIVE) H 06/27/18 20:21 Urine Glucose (UA) 1+ mg/dL (Normal) H 06/27/18 20:21 Urine Ketones Negative mg/dL (NEGATIVE) 06/27/18 20:21 Urine Blood Negative (NEGATIVE) 06/27/18 20:21 Urine Nitrate Negative (NEGATIVE) 06/27/18 20:21 Urine Bilirubin Negative (NEGATIVE) 06/27/18 20:21 Urine Urobilinogen Normal mg/dL (0.2-1.0) 06/27/18 20:21 Ur Leukocyte Esterase Neg Janis/uL (Negative) 06/27/18 20:21 Urine WBC (Auto) 1 /hpf (0-5) 06/27/18 20:21 Urine RBC (Auto) 1 /hpf (0-3) 06/27/18 20:21 Ur Squamous Epith Cells < 1 /hpf (0-5) 06/27/18 20:21 Urine Bacteria Rare (<OCC) 06/27/18 20:21 Ur Random Creatinine 107 mg/dL (20-320) 06/27/18 20:21 U Random Total Protein 7056 mg/g creat (22-128) H 06/27/18 20:21 Urine Total Volume 435.7 mg/dL 06/27/18 20:21 Microalb/Creat Ratio 4072 (<30) H 06/27/18 20:21 KRISTEN Nuclear Membr Pat Negative (Negative) 06/27/18 14:13 Double Strand DNA Ab 2 IU/mL 06/27/18 14:13 Complement C3 115.0 mg/dL (88.0-165.0) 06/27/18 14:13 Complement C4 41.9 mg/dL (14.0-44.0) 06/27/18 14:13 Hep Bs Antigen Negative (NEGATIVE) 06/27/18 14:13 Hep Bs Antibody Positive (NEGATIVE) 06/27/18 14:13 Hep B Core IgM Ab Negative (NEGATIVE) 06/27/18 14:13 Hepatitis C Antibody Negative (NEGATIVE) 06/27/18 14:13 HIV 1&2 Antibody Screen Negative (NEGATIVE) 06/27/18 14:13 - Hospital Course Hospital Course: Upon Admission Mr. Buchanan is a 67 yo male with PMH significant for chronic anemia, HTN, CKD, uncontrolled DM w/ neuropathy, foot ulcers, and hyperlipidemia is admitted to hospital for evaluation of bilateral diabetic foot ulcers as referred by Dr. Barrientos. Patient states that he has been in the jail for about a month s/p previous admission for foot ulcer continued treatment. Patient admits that his foot ulcer in jail has not been healing for about a month and at which point Dr. Barrientos stated the patient go to hospital for further treatment. Patient denies any pain in his feet and states he uses a cane for ambulation with no difficulty. Patient states he completed his previous treatment for bilateral foot ulcer with Cefepime/Zyvox but still the foot ulcer did not heal. Patient states he has bilateral neuropathy both sensation and pain. Patient admits to blurriness in visual field at times but not constant. Patient states he has difficulty initiating urinary stream. Patient denies fevers, chills, chest pain, sob, n/v, constipation, or dysuria. Hospital Course Patient is 67 year old male with PMH of HTN, CKD, chronic anemia, uncontrolled DM w/ neuropathy, and hypercholesterolemia is admitted to [facility] for bilateral diabetic foot ulcers. Patient was sent to hospital by Dr. Barrientos, podiatry, and left foot debridement was done on 06/28/18 with no complications. Nephrology was consulted for hypertension despite increasing blood pressure medications. Patient's blood pressure medications are outlined below. Patient is clear for discharge to jail per Dr. Momin and Podiatry. Patient will continue IV antibiotics for 3 days and oral cipro for 7 days. Patient will be monitored for hypertension and diabetes in jail and continue medical management. Discharge Plan 1. Patient is stable for discharge to jail as per Dr. Momin and podiatry. 2. Patient is partial weight bearing on the left foot. Patient will need 2 daily blood pressure checks at jail. 3. Patient will be discharged with the following medications as listed: Norvasc 10 daily Cefepime IV for 3 days Ciprofloxacin bid for 7 days Chlorthalidone 25 mg po Enalapiril 20mg d Ferrous gulconate 324 mg po tid Drisdol [id number] q weekly Hydralazine 100mg po bid Docusate 100mg po bid Miralax PRN Januvia 25mg daily Thiamine 100mg po bid Minoxidil 2.5mg po daily 4. Patient will need to follow up with primary medical doctor within 1 week of discharge from hospital. 5. Patient should return to hospital if symptoms worsen or recur. 6. Patient understands the plan as above and agrees. Disclaimer: Written above is a synopsis of patient's current hospital admission. Please refer to EMR for full report Discharge Exam - Head Exam Head Exam: ATRAUMATIC, NORMAL INSPECTION, NORMOCEPHALIC - Eye Exam Eye Exam: EOMI, Normal appearance, PERRL Pupil Exam: NORMAL ACCOMODATION, PERRL - Respiratory Exam Respiratory Exam: Clear to PA & Lateral, NORMAL BREATHING PATTERN, UNREMARKABLE. absent: Accessory Muscle Use, Rales, Rhonchi, Wheezes - Cardiovascular Exam Cardiovascular Exam: REGULAR RHYTHM, +S1, +S2. absent: JVD - GI/Abdominal Exam GI & Abdominal Exam: Normal Bowel Sounds, Unremarkable. absent: Pulsatile Mass, Rebound - Extremities Exam Extremities exam: normal inspection - Back Exam Back exam: absent: CVA tenderness (L), CVA tenderness (R) - Neurological Exam Neurological exam: Alert, Oriented x3 - Psychiatric Exam Psychiatric exam: Normal Affect, Normal Mood - Skin Skin Exam: Intact, Normal Color Discharge Plan - Discharge Medications Prescriptions: RX: Ciprofloxacin [Cipro] 500 mg PO BID 7 Days tab - Follow Up Plan Condition: STABLE Disposition: NURSING FACILITY MEDICAID CERT Instructions: Ciprofloxacin (Systemic), Cellulitis (Skin Infection), Adult (DC) Additional Instructions: 1. Patient is stable for discharge to jail as per Dr. Momin and podiatry. 2. Patient is partial weight bearing on the left foot. Patient will need 2 daily blood pressure checks at jail. 3. Patient will be discharged with the following medications as listed: Norvasc 10 daily Cefepime IV for 3 days Ciprofloxacin bid for 7 days Chlorthalidone 25 mg po Enalapiril 20mg d Ferrous gulconate 324 mg po tid Drisdol 82674 q weekly Hydralazine 100mg po bid Docusate 100mg po bid Miralax PRN Januvia 25mg daily Thiamine 100mg po bid Minoxidil 2.5mg po daily 4. Patient will need to follow up with primary medical doctor within 1 week of discharge from hospital. 5. Patient should return to hospital if symptoms worsen or recur. 6. Patient understands the plan as above and agrees. <Renetta Momin V - Last Filed: 06/29/18 21:00> Provider - Provider Date of Admission: 06/26/18 13:12 Attending physician: Renetta Momin DO Consults: 06/26/18 15:11 Infectious Disease Consult Routine Comment: Consulting Provider: Jeovany Leyva Consulting Physician: Jeovany Leyva Reason for Consult: Diabetic foot ulcer; Abx management for + cx Nephrology Consult Routine Comment: Consulting Provider: Heath Strong Consulting Physician: Heath Strong Reason for Consult: MARTHA on CKD 06/26/18 15:43 Infectious Disease Consult Routine Comment: Consulting Provider: Jeovany Leyva Consulting Physician: Jeovany Leyva Reason for Consult: Ischemic wounds left foot 06/26/18 15:59 Podiatry Consult Routine Comment: Consulting Provider: Michoacano Barrientos Consulting Physician: Michoacano Barrientos Reason for Consult: bilateral foot ulcers 06/27/18 11:28 Hematology Oncology Consult Routine Comment: Consulting Provider: Joy Cunningham Consulting Physician: Joy Cunningham Reason for Consult: concern for bleeding; plavix on hold; PFT pending (platelet) Hospital Course - Lab Results Lab Results: Micro Results 06/26/18 11:33 Blood Blood Culture - Preliminary NO GROWTH AFTER 3 DAYS 06/26/18 11:16 Blood Blood Culture - Preliminary NO GROWTH AFTER 3 DAYS Most Recent Lab Values WBC 8.7 K/uL (4.8-10.8) 06/29/18 06:58 RBC 3.85 Mil/uL (4.40-5.90) L 06/29/18 06:58 Hgb 10.6 g/dL (12.0-18.0) L 06/29/18 06:58 Hct 31.1 % (35.0-51.0) L 06/29/18 06:58 MCV 80.6 fL (80.0-94.0) 06/29/18 06:58 MCH 27.5 pg (27.0-31.0) 06/29/18 06:58 MCHC 34.1 g/dL (33.0-37.0) 06/29/18 06:58 RDW 14.6 % (11.5-14.5) H 06/29/18 06:58 Plt Count 250 K/uL (130-400) 06/29/18 06:58 MPV 8.1 fL (7.2-11.7) 06/29/18 06:58 Neut % (Auto) 59.6 % (50.0-75.0) 06/29/18 06:58 Lymph % (Auto) 20.0 % (20.0-40.0) 06/29/18 06:58 Ramsey % (Auto) 8.6 % (0.0-10.0) 06/29/18 06:58 Eos % (Auto) 10.8 % (0.0-4.0) H 06/29/18 06:58 Baso % (Auto) 1.0 % (0.0-2.0) 06/29/18 06:58 Neut # (Auto) 5.2 K/uL (1.8-7.0) 06/29/18 06:58 Lymph # (Auto) 1.8 K/uL (1.0-4.3) 06/29/18 06:58 Ramsey # (Auto) 0.8 K/uL (0.0-0.8) 06/29/18 06:58 Eos # (Auto) 0.9 K/uL (0.0-0.7) H 06/29/18 06:58 Baso # (Auto) 0.1 K/uL (0.0-0.2) 06/29/18 06:58 PT 11.8 SECONDS (9.7-12.2) 06/28/18 07:23 INR 1.1 06/28/18 07:23 APTT 37 SECONDS (21-34) H 06/28/18 07:23 Plt Function Assay 95 K/uL 06/27/18 14:10 Sodium 135 mmol/L (132-148) 06/29/18 06:58 Potassium 4.4 mmol/L (3.6-5.2) 06/29/18 06:58 Chloride 101 mmol/L (98-107) 06/29/18 06:58 Carbon Dioxide 26 mmol/L (22-30) 06/29/18 06:58 Anion Gap 13 (10-20) 06/29/18 06:58 BUN 35 mg/dL (9-20) H 06/29/18 06:58 Creatinine 2.1 mg/dL (0.8-1.5) H 06/29/18 06:58 Est GFR ( Amer) 39 06/29/18 06:58 Est GFR (Non-Af Amer) 32 06/29/18 06:58 POC Glucose (mg/dL) 241 mg/dL (65-110) H 06/29/18 16:41 Random Glucose 212 mg/dL (75-110) H 06/29/18 06:58 Hemoglobin A1c 8.9 % (4.2-6.5) H 06/26/18 19:34 Calcium 8.0 mg/dl (8.6-10.4) L 06/29/18 06:58 Phosphorus 3.8 mg/dL (2.5-4.5) 06/29/18 06:58 Magnesium 1.8 mg/dL (1.6-2.3) 06/29/18 06:58 Iron 67 ug/dL (49-181) 06/27/18 14:13 TIBC 235 ug/dL (250-450) L 06/27/18 14:13 % Saturation 28 (20-55) 06/27/18 14:13 Ferritin 68.2 ng/mL 06/27/18 14:13 Total Bilirubin 0.4 mg/dL (0.2-1.3) 06/29/18 06:58 AST 18 U/L (17-59) 06/29/18 06:58 ALT 14 U/L (21-72) L 06/29/18 06:58 Alkaline Phosphatase 73 U/L (38-126) 06/29/18 06:58 Total Protein 6.2 g/dL (6.3-8.3) L 06/29/18 06:58 Total Protein (PEP) 5.9 g/dL (6.1-8.1) L 06/28/18 07:23 Albumin 2.9 g/dL (3.5-5.0) L 06/29/18 06:58 Globulin 3.3 gm/dL (2.2-3.9) 06/29/18 06:58 Albumin/Globulin Ratio 0.9 (1.0-2.1) L 06/29/18 06:58 Triglycerides 230 mg/dL (0-149) H D 06/26/18 19:34 Cholesterol 238 mg/dL (0-199) H 06/26/18 19:34 LDL Cholesterol Direct 148 mg/dL (0-129) H 06/26/18 19:34 HDL Cholesterol 35 mg/dL (30-70) 06/26/18 19:34 Free PSA 0.1 ng/mL 06/26/18 19:34 % Free PSA 50 % (calc) (>25) 06/26/18 19:34 Total PSA 0.2 ng/mL (< or = 4.0) 06/26/18 19:34 Vitamin B12 578 pg/mL (239-931) 06/28/18 07:23 25-OH Vitamin D Total < 12.8 NG/ML (30.0-100.0) L 06/28/18 07:23 Folate 13.9 ng/mL 06/27/18 14:13 TSH 3rd Generation 5.53 mIU/L (0.46-4.68) H 06/28/18 07:23 PTH Intact Whole Molec 34 pg/mL (14-64) 06/27/18 14:13 Urine Color Yellow (YELLOW) 06/27/18 20:21 Urine Clarity Clear (Clear) 06/27/18 20:21 Urine pH 6.0 (5.0-8.0) 06/27/18 20:21 Ur Specific [place] 1.017 (1.003-1.030) 06/27/18 20:21 Urine Protein 3+ mg/dL (NEGATIVE) H 06/27/18 20:21 Urine Glucose (UA) 1+ mg/dL (Normal) H 06/27/18 20:21 Urine Ketones Negative mg/dL (NEGATIVE) 06/27/18 20:21 Urine Blood Negative (NEGATIVE) 06/27/18 20:21 Urine Nitrate Negative (NEGATIVE) 06/27/18 20: Urine Bilirubin Negative (NEGATIVE) 06/27/18 20:21 Urine Urobilinogen Normal mg/dL (0.2-1.0) 06/27/18 20:21 Ur Leukocyte Esterase Neg Janis/uL (Negative) 06/27/18 20:21 Urine WBC (Auto) 1 /hpf (0-5) 06/27/18 20:21 Urine RBC (Auto) 1 /hpf (0-3) 06/27/18 20:21 Ur Squamous Epith Cells < 1 /hpf (0-5) 06/27/18 20:21 Urine Bacteria Rare (<OCC) 06/27/18 20:21 Ur Random Creatinine 107 mg/dL (20-320) 06/27/18 20:21 U Random Total Protein 7056 mg/g creat (22-128) H 06/27/18 20:21 Urine Total Volume 435.7 mg/dL 06/27/18 20:21 Microalb/Creat Ratio 4072 (<30) H 06/27/18 20:21 Serum Immunofixation Not detected (Not Detected) 06/28/18 07:23 KRISTEN Nuclear Membr Pat Negative (Negative) 06/27/18 14:13 Double Strand DNA Ab 2 IU/mL 06/27/18 14:13 Complement C3 115.0 mg/dL (88.0-165.0) 06/27/18 14:13 Complement C4 41.9 mg/dL (14.0-44.0) 06/27/18 14:13 Hep Bs Antigen Negative (NEGATIVE) 06/27/18 14:13 Hep Bs Antibody Positive (NEGATIVE) 06/27/18 14:13 Hep B Core IgM Ab Negative (NEGATIVE) 06/27/18 14:13 Hepatitis C Antibody Negative (NEGATIVE) 06/27/18 14:13 HIV 1&2 Antibody Screen Negative (NEGATIVE) 06/27/18 14:13 Attending/Attestation - Attestation I have personally seen and examined this patient.: Yes I have fully participated in the care of the patient.: Yes I have reviewed all pertinent clinical information, including history, physical exam and plan: Yes Notes (Text): Patient seen, exazmined and case discussed with medical care manager. Patient reports he is doing well. Denies acute complaints. Per podiatry, patient is stable to go home from their standpoint. Per infectious disease, patient to continue IV abx for 3 more days then switch to PO cipro for 7 days. Patient medically stable for discharge to rehab. Patient will need to follow-up with podiatry post discharge. This is a summary of patient's hospitalization. Please review EMR for further details of record. Discharge Diagnoses: 1) Diabetic Foot ulcers * Heme/Onc Consult: Dr. Cunningham- recommendations appreciated; Platelet function test: 95 * may go to OR * Podiatry Consult: Dr. Barrientos on help appreciated * s/p debridement 06/28/18 * stable for discharge * B/L Foot xray (06/26): Soft tissue swelling bilateral * ID consult: Dr. Leyva on help appreciated * Cefepime 1 gram IV Q12H for three more days, then transition to Cipro 500mg PO BID for 7 more days * CXR (06/26/18): no active disease * BLood culture: negative 2) Insulin dependent diabetes * HgA1c - 8.9 * ISS * Januvia 25mg POqdaily * Novolog 5 unit SubqAC * Lantus 7 unit subHS 3) Hypertension, uncontrolled * Nephrology consulted: Dr. Strogn- recommendations as below * Enalapril 20mg PQ q12 * Hydralazine 100 mg po bid * Norvasc 10mg po daily * Chlorthalidone 25mg po daily * Minoxidil 2.5mg PO daily 4) Lipid disorder * T; Chol: 238; LDL: 148; HDL 35 * Crestor 20mg QHS 5) Renal Insufficiency * Nephro consult: Dr. Tae best appreciated * Check urine analysis, spot protein/creatinine, albumin/creatinine ratio * Check GN work up as C3: normal, C4: normal KRISTEN: negative, Anti dsDNA: negative, HIV/Hep B and Hep C serology: negative * Anemia work up with TSAT/Ferritin/Vitamin B12/folate, serum protein electrophoresis with immunofixation: negative, serum free light chain assay (Soddy-Daisy/Lambda) * Check for 25-OH vitamin D, iPTH, phosphorus level. * Secondary HTN work up with plasma renin/aldosterone, plasma metanephrine and renal artery Doppler to r/o renal artery stenosis * Renal/Bladder US: left kidney cyst 6) Diabetic Peripheral neuropathy * Arterial Duplex (05/10/18): Normal duplex doppler of B/L lower extremity arteries. * Plavix 75mg PO qd - on HOLD 7) BPH * Flomax 0.4mg po daily 8) Chronic Anemia * 2/2 diabetes * suspecting anemia of chronic disease * H&H stable 9) Prophylactic measures * GI prophylaxis: none indicated at this time
--- NOTE | 2018-06-30 07:12 | VASCLAB ---
Date of service: 06/29/2018 PROCEDURE: Renal Artery Duplex Scan HISTORY: Severe HTN r/o AVANI COMPARISON: None available. TECHNIQUE: Real-time ultrasonography evaluation of the renal arteries were performed. Comparison is made to the aorta. Report prepared by GWYN Bird FINDINGS: AORTA: Patent. Peak systolic velocity 118 centimeters/second RIGHT RENAL ARTERY: Renal artery to aorta ratio: 1.2 * Proximal segment: Patent. Peak systolic velocity 136 centimeters/second * Mid segment: Patent. Peak systolic velocity 123 centimeters/second * Distal segment: Patent. Peak systolic velocity 87 centimeters/second Other findings: Right Kidney measures approximately 12.85 centimeters. LEFT RENAL ARTERY: Renal artery to aorta ratio: 1.3 * Proximal segment: Patent. Peak systolic velocity 102 centimeters/second * Mid segment: Patent. Peak systolic velocity 156 centimeters/second * Distal segment: Patent. Peak systolic velocity 107 centimeters/second Other findings: Left Kidney measures approximately 12.88 Centimeters. IMPRESSION: No definite hemodynamically significant stenosis involving the renal arteries as visualized Bilateral renal veins appeared patent.
[2018-06-30 16:22] LABS: ALBUMIN (PEP) 2.8 g/dL (3.8-4.8); ALPHA-1-GLOBULIN (PEP) 0.3 g/dL (0.2-0.3)
--- NOTE | 2018-07-01 04:08 | OP ---
PROCEDURE DATE: 06/28/2018 PATIENT'S AGE: 67. PATIENT'S SEX: Male. PREOPERATIVE DIAGNOSIS: Left foot chronic necrotic wound forefoot. POSTOPERATIVE DIAGNOSIS: Left foot chronic necrotic wound forefoot. OPERATION PERFORMED: Left foot debridement of chronic necrotic wounds. SURGEON: Michoacano Barrientos DPM MANDARIN SPEAKING NANNY: Cathy Lerma DPM, PGY-2 ANESTHESIOLOGIST: Dr. Fodr ANESTHESIA: IV sedation with local. INDICATION: The patient is a 67-year-old male with the above diagnosis. The patient is being treated by Dr. Michoacano Barrientos as an outpatient basis in a retirement where he has exhausted multiple forms of conservative treatments which include but are not limited to the bedside wound debridements, oral antibiotics and outpatient procedures. The patient seeks surgical intervention at this time and now requests surgical intervention. All risks, benefits and possible complications of the proposed procedure have been explained to the patient in a greater length. The patient verbalizes understanding of the procedure and wishes to proceed with the procedure. All questions were answered. No guarantees were given or implied. Consent was signed and n.p.o. status was confirmed prior to bringing the patient to the operating room. OPERATIVE PROCEDURE: The patient was brought into the operating room and was placed on the operating room table in supine position. No tourniquet was applied to the patient's extremity during the course of this procedure. Once IV sedation was achieved, local injection of 1:1 mixture of 20 mL of 1% lidocaine plain to 0.5% Marcaine plain was introduced in a local block type fashion to the patient forefoot. Once the local anesthesia was achieved, foot was then prepped and draped in the usual sterile manner and the procedure began. PROCEDURE: Left foot debridement of necrotic wounds. Attention was directed to the plantar distal aspect of the digits of the left foot from hallux to the fifth digit. It was noted that the patient had dry eschar necrotic wounds at the distal aspect of the hallux, second digit, third, fourth and fifth digits. At this time, using Adson-Brown and a #15 blade, the periphery of the eschars were debrided down to the healthy bleeding. All of the nonviable necrotic tissue was removed from all of the digits. At this point, it was noted that the distal aspect of the third digit showed small portion of the bone. Utilizing a double-action bone cutter, the distal aspect of the bone was resected and was passed off the operative field and was sent to Pathology. At this point, surgical site was then irrigated with copious amount of sterile saline. All of the digital wounds were then dressed with Xeroform, DSD and Kerlix. POSTOPERATIVE CONDITION: The patient tolerated the procedure and anesthesia well and was escorted to the recovery room with vital signs stable and neurovascular status intact of the patient's left foot. All the postoperative instructions were provided to the patient prior to taking the patient to the operating room. The patient will remain weightbearing as tolerated to the heel in a surgical shoe. At this point, the patient will return to the floor where the care will be taken on a daily basis, and the dressings will be changed on a daily basis until transferred to the retirement where he will follow up with Dr. Michoacano Barrientos. Cathy Lerma DPM Michoacano Barrientos DPM
== END 2018-06-29 21:25 | DRG 623 ==
LOC: C.ER 10:41 → C.9E 13:12 → C.3T 14:24
PROVIDERS: ADMIT Hospitalist; ATTEND Hospitalist
PROC: 0QBR3ZZ Excision of Left Toe Phalanx, Percutaneous Approach (ICD-10-PCS; 2018-06-28)
PROC: 0JBR0ZZ Excision of Left Foot Subcutaneous Tissue and Fascia, Open Approach (ICD-10-PCS; principal; 2018-06-28 09:30)
DX: E11.621 Type 2 diabetes mellitus with foot ulcer (principal); E11.52 Type 2 diabetes mellitus with diabetic peripheral angiopathy with gangrene; L97.419 Non-pressure chronic ulcer of right heel and midfoot with unspecified severity; L03.116 Cellulitis of left lower limb; E11.42 Type 2 diabetes mellitus with diabetic polyneuropathy; I12.9 Hypertensive chronic kidney disease with stage 1 through stage 4 chronic kidney disease, or unspecified chronic kidney disease; M89.9 Disorder of bone, unspecified; N40.0 Benign prostatic hyperplasia without lower urinary tract symptoms; D63.1 Anemia in chronic kidney disease; E11.22 Type 2 diabetes mellitus with diabetic chronic kidney disease; N18.3 Chronic kidney disease, stage 3 (moderate); E11.319 Type 2 diabetes mellitus with unspecified diabetic retinopathy without macular edema; E78.5 Hyperlipidemia, unspecified; S90.829A Blister (nonthermal), unspecified foot, initial encounter; Z79.4 Long term (current) use of insulin

== ENCOUNTER 2018-08-21 21:34 | Inpatient (IN) | payer MEDICARE ==
[2018-08-21 21:35] VITALS: BMI 20.7
--- NOTE | 2018-08-21 21:45 | C.PDOC ---
History Of Present Illness 67 year old male is sent to the ED from his [facility] for worsening pedal edema and elevated troponin. Patient was recently admitted for non healing bilateral foot ulcers on 06/26, patient also had surgery done. Patient denies fever, chills, CP, SOB, palpitations, weakness, numbness. Time Seen by Provider: 08/21/18 21:45 Chief Complaint (Nursing): Abnormal Labs History Per: Patient History/Exam Limitations: no limitations Onset/Duration Of Symptoms: Days Current Symptoms Are (Timing): Still Present Severity: Moderate Pain Scale Rating Of: 4 Reports Recently: Seen In ED, Treated By A Physician Recent travel outside of the [place]: No Additional History Per: Patient Past Medical History Reviewed: Historical Data, Nursing Documentation, Vital Signs Vital Signs: Last Vital Signs Temp 98.0 F 08/21/18 21:40 Pulse 74 08/21/18 21:40 Resp 18 08/21/18 21:40 BP 166/64 H 08/21/18 21:40 Pulse Ox 96 08/21/18 21:40 - Medical History PMH: Arthritis (KNEE/ L ANKLE), Diabetes, HTN, Hypercholesterolemia Denies: Chronic Kidney Disease - [facility] Procedures CLOSED BIOPSY OF SKIN AND SUBCUTANEOUS TISSUE (12/09/14) DEBRIDEMENT OF NAIL, NAIL BED OR NAIL FOLD (03/03/15) DRAINAGE OF LEFT LOWER LEG SKIN, EXTERNAL APPROACH (09/09/16) EXCISION OF L FOOT SUBCU/FASCIA, OPEN APPROACH (06/26/18) EXCISION OF LEFT TOE PHALANX, PERCUTANEOUS APPROACH (06/26/18) FOOT & TOE JOINT BIOPSY (12/09/14) INSERTION OF INFUSION DEV INTO SUP VENA CAVA, PERC APPROACH (08/21/16) NONEXCIS DEBRID OF WOUND, INFECT, OR BURN (11/22/14) OTHER LOCAL DESTRUC SKIN (01/22/15) ULTRASONOGRAPHY OF SUPERIOR VENA CAVA, GUIDANCE (08/21/16) Family History: States: No Known Family Hx - Social History Hx Tobacco Use: No Hx Alcohol Use: No Hx Substance Use: No - Immunization History Hx Tetanus Toxoid Vaccination: Yes Hx Influenza Vaccination: Yes (04/2016) Hx Pneumococcal Vaccination: Yes (2012) Review Of Systems Constitutional: Negative for: Fever, Chills ENT: Negative for: Throat Pain Cardiovascular: Negative for: Chest Pain Respiratory: Positive for: Shortness of Breath Gastrointestinal: Negative for: Nausea, Vomiting, Abdominal Pain Genitourinary: Negative for: Dysuria Musculoskeletal: Positive for: Foot Pain. Negative for: Back Pain Skin: Positive for: Lesions Neurological: Negative for: Weakness Psych: Negative for: Anxiety Physical Exam - Physical Exam Appears: Non-toxic, No Acute Distress Skin: Warm, Dry, Other (healing foot ulcers) Head: Normacephalic Eye(s): bilateral: Normal Inspection Oral Mucosa: Moist Neck: Supple Chest: Symmetrical Cardiovascular: Rhythm Regular Respiratory: Rales (bases), No Rhonchi, No Wheezing Gastrointestinal/Abdominal: Soft, No Tenderness, No Distention Back: Normal Inspection Extremity: Normal ROM, Pedal Edema (b/l pitting), Other Extremity: Bilateral: Atraumatic, Painful To Bear Weight Pulses: Left Dorsalis Pedis: Normal, Right Dorsalis Pedis: Normal Neurological/Psych: Oriented x3 Gait: With Assistance ED Course And Treatment - Laboratory Results Result Diagrams: 08/21/18 22:40 08/21/18 22:40 ECG: Interpreted By Me, Viewed By Me ECG Rhythm: Sinus Rhythm (69), 1st Degree HB, Nonspecific Changes O2 Sat by Pulse Oximetry: 96 (ON RA) Pulse Ox Interpretation: Normal - Radiology CXR: Interpreted by Me, Viewed By Me CXR Interpretation: Yes: Infiltrates (rll), Cardiomegaly, Other (mild chf). No: Fracture Disposition Discussed With DrSin: Josue Lerma Comment: accepted the pt on his service and took over the care at 1:52 AM Doctor Will See Patient In The: Hospital Counseled Patient/Family Regarding: Studies Performed, Diagnosis - Disposition Disposition: HOSPITALIZED Disposition Time: 21:45 Condition: FAIR Forms: [facility] ([place]) - POA Present On Arrival: Poor Glycemic Control - Clinical Impression Clinical Impression: CHF (congestive heart failure), Leg edema, Diabetic neuropathy, Diabetic foot ulcer - Scribe Statement The provider has reviewed the documentation as recorded by the Scribe Simón Schaefer All medical record entries made by the Scribe were at my direction and personally dictated by me. I have reviewed the chart and agree that the record accurately reflects my personal performance of the history, physical exam, medical decision making, and the department course for this patient. I have also personally directed, reviewed, and agree with the discharge instructions and disposition. Decision To Admit - Pt Status Changed To: Hospital Disposition Of: Inpatient - Admit Certification Admit to Inpatient:: After my assessment, the patient will require hospitalization for at least two midnights. This is because of the severity of symptoms shown, intensity of services needed, and/or the medical risk in this patient being treated as an outpatient. - InPatient: Physician Admission Certification: I certify that this patient requires 2 or more midnights of care for the following reason:: After my assessment, the patient will require hospitalization for at least two midnights. This is because of the severity of symptoms shown, intensity of services needed, and/or the medical risk in this patient being treated as an outpatient. - . Bed Request Type: Telemetry Admitting Physician: Josue Lerma Patient Diagnosis: CHF (congestive heart failure), Leg edema, Diabetic neuropathy, Diabetic foot ulcer
[2018-08-21 22:43] LABS: BASO # 0.1 K/uL (0.0-0.2); BASO % 1.1 % (0.0-2.0); EOS # 1.1 K/uL (0.0-0.7); EOS % 13.6 % (0.0-4.0); HEMOGLOBIN 8.8 g/dL (12.0-18.0); LYMPH # 1.3 K/uL (1.0-4.3); LYMPH % 15.5 % (20.0-40.0); MEAN CELL VOLUME 81.5 fL (80.0-94.0); MEAN CORPUSCULAR HEMOGLOBIN 26.1 pg (27.0-31.0); MEAN PLATELET VOLUME 7.4 fL (7.2-11.7); MONO # 0.9 K/uL (0.0-0.8); MONO % 10.5 % (0.0-10.0); NEUT % 59.3 % (50.0-75.0); RBC 3.36 Mil/uL (4.40-5.90); RED CELL DISTRIBUTION WIDTH 14.3 % (11.5-14.5); WHITE BLOOD COUNT 8.4 K/uL (4.8-10.8)
[2018-08-21 22:59] LABS: VENOUS BLOOD GAS BASE EXCESS -2.9 mmol/L (0.0-2.0); VENOUS BLOOD GAS PCO2 38 mmHg (40-60); VENOUS BLOOD GAS PO2 57 mm/Hg (30-55); VENOUS BLOOD PH 7.37 (7.32-7.43)
[2018-08-21 23:00] LABS: ALB/GLOB RATIO 1.2 (1.0-2.1); ALBUMIN 3.7 g/dL (3.5-5.0); ALT/SGPT 25 U/L (21-72); AST/SGOT 27 U/L (17-59); BLOOD UREA NITROGEN 37 mg/dL (9-20); GFR NON-AFRICAN AMERICAN 32
[2018-08-21 23:14] LABS: INR 1.1; PROTHROMBIN TIME 11.5 SECONDS (9.7-12.2)
[2018-08-21 23:35] LABS: B-TYPE NATRIURETIC PEPTIDE 1420 pg/mL (0-900)
[2018-08-22 00:09] LABS: URINE BACTERIA RARE (<OCC); URINE BILIRUBIN NEGATIVE (NEGATIVE); URINE BLOOD NEGATIVE (NEGATIVE); URINE CLARITY Clear (Clear); URINE COLOR Straw (YELLOW); URINE GLUCOSE (UA) 1+ mg/dL (Normal); URINE LEUKOCYTE ESTERASE NEG Leu/uL (Negative); URINE PROTEIN 2+ mg/dL (NEGATIVE); URINE UROBILINOGEN NORMAL mg/dL (0.2-1.0)
[2018-08-22] MEDS ORDERED: Cefepime (Maxipime) 1 g Inj IVPB SCH (10:30)
--- NOTE | 2018-08-22 11:36 | RAD ---
HISTORY: SOB COMPARISON: Chest x-ray performed 06/26/18 TECHNIQUE: Chest, one view. FINDINGS: Examination limited by habitus. LUNGS: Moderate pulmonary venous congestion. Right lower lobe infiltrate consistent with pneumonia/edema. Please note that chest x-ray has limited sensitivity for the detection of pulmonary masses. PLEURA: No significant pleural effusion identified. No definite pneumothorax . CARDIOVASCULAR: Mild cardiomegaly. No significant atherosclerotic calcification present. OSSEOUS STRUCTURES: Degenerative changes. VISUALIZED UPPER ABDOMEN: Unremarkable. OTHER FINDINGS: None. IMPRESSION: Moderate pulmonary venous congestion. Right lower lobe infiltrate consistent with pneumonia/edema.
[2018-08-22] MEDS: Pantoprazole 40 mg EC Tab PO SCH (12:09)
[2018-08-22] MEDS ORDERED: (Novolin R) Insulin Human Regular 100 units/ml vial ONE (14:05)
[2018-08-22] MEDS: (Novolin R) Insulin Human Regular 100 units/ml vial SC SCH ×3 (14:07→21:09)
--- NOTE | 2018-08-22 14:33 | CP.PCM.HP ---
Past Patient History - Infectious Disease Hx of Infectious Diseases: None - Past Medical History & Family History Past Medical History?: Yes - Past Social History Smoking Status: Never Smoked - CARDIAC Hx Hypercholesterolemia: Yes Hx Hypertension: Yes - PULMONARY Hx Respiratory Disorders: No - NEUROLOGICAL Hx Neurological Disorder: No - HEENT Hx HEENT Problems: No - RENAL Hx Chronic Kidney Disease: No - ENDOCRINE/METABOLIC Hx Endocrine Disorders: Yes Hx Diabetes Mellitus Type 2: Yes - HEMATOLOGICAL/ONCOLOGICAL Hx Blood Disorders: No Hx Blood Transfusions: No - INTEGUMENTARY Hx Dermatological Problems: Yes Hx Cellulitis: Yes (BILAT FOOT) - MUSCULOSKELETAL/RHEUMATOLOGICAL Hx Arthritis: Yes (KNEE/ L ANKLE) - GASTROINTESTINAL Hx Gastrointestinal Disorders: Yes Hx Gastroesophageal Reflux: Yes - GENITOURINARY/GYNECOLOGICAL Hx Genitourinary Disorders: No - PSYCHIATRIC Hx Substance Use: No - SURGICAL HISTORY Hx Surgeries: Yes Other/Comment: debridement right foot 2014. DEBRIDEMENT LT.FOOT 08/2016 - ANESTHESIA Hx Anesthesia: Yes Hx Anesthesia Reactions: No Hx Malignant Hyperthermia: No Meds Allergies/Adverse Reactions: Allergies Allergy/AdvReac Type Severity Reaction Status Date / Time shrimp Allergy RASH Verified 08/21/18 21:47 Physical Exam - Constitutional Appears: Well - Head Exam Head Exam: ATRAUMATIC, NORMAL INSPECTION, NORMOCEPHALIC - Eye Exam Eye Exam: EOMI, Normal appearance, PERRL Pupil Exam: NORMAL ACCOMODATION, PERRL - ENT Exam ENT Exam: Mucous Membranes Moist, Normal Exam - Neck Exam Neck exam: Positive for: Normal Inspection - Respiratory Exam Respiratory Exam: Decreased Breath Sounds - Cardiovascular Exam Cardiovascular Exam: REGULAR RHYTHM, +S1, +S2 - GI/Abdominal Exam GI & Abdominal Exam: Diminished Bowel Sounds, Soft - Rectal Exam Rectal Exam: Deferred Results - Vital Signs Recent Vital Signs: Last Vital Signs Temp 98.1 F 08/22/18 06:16 Pulse 65 08/22/18 06:16 Resp 14 08/22/18 06:16 BP 169/78 H 08/22/18 06:16 Pulse Ox 98 08/22/18 06:16 - Labs Result Diagrams: 08/21/18 22:40 08/21/18 22:40 Labs: Laboratory Results - last 24 hr 08/21/18 08/21/18 08/21/18 22:40 22:40 22:40 WBC 8.4 RBC 3.36 L Hgb 8.8 L Hct 27.4 L MCV 81.5 MCH 26.1 L MCHC 32.0 L RDW 14.3 Plt Count 237 MPV 7.4 Neut % (Auto) 59.3 Lymph % (Auto) 15.[address] [place] % (Auto) 10.5 H Eos % (Auto) 13.6 H Baso % (Auto) 1.1 Neut # (Auto) 5.0 Lymph # (Auto) 1.3 [place] # (Auto) 0.9 H Eos # (Auto) 1.1 H Baso # (Auto) 0.1 PT 11.5 INR 1.1 APTT 39 H pO2 VBG pH VBG pCO2 VBG HCO3 VBG Total CO2 VBG O2 Sat (Calc) VBG Base Excess VBG Potassium Glucose Lactate Sodium 136 Potassium 5.1 Chloride 107 Carbon Dioxide 23 Anion Gap 11 BUN 37 H Creatinine 2.1 H Est GFR ( Amer) 39 Est GFR (Non-Af Amer) 32 POC Glucose (mg/dL) Random Glucose 194 H Calcium 8.0 L Total Bilirubin 0.2 AST 27 ALT 25 Alkaline Phosphatase 94 Troponin I < 0.0120 NT-Pro-B Natriuret Pep 1420 H Total Protein 6.8 Albumin 3.7 Globulin 3.1 Albumin/Globulin Ratio 1.2 Venous Blood Potassium Urine Color Urine Clarity Urine pH Ur Specific Moon Urine Protein Urine Glucose (UA) Urine Ketones Urine Blood Urine Nitrate Urine Bilirubin Urine Urobilinogen Ur Leukocyte Esterase Urine WBC (Auto) Urine RBC (Auto) Urine Bacteria 08/21/18 08/21/18 08/22/18 22:44 23:59 12:46 WBC RBC Hgb Hct MCV MCH MCHC RDW Plt Count MPV Neut % (Auto) Lymph % (Auto) [place] % (Auto) Eos % (Auto) Baso % (Auto) Neut # (Auto) Lymph # (Auto) [place] # (Auto) Eos # (Auto) Baso # (Auto) PT INR APTT pO2 57 H VBG pH 7.37 VBG pCO2 38 L VBG HCO3 22.4 VBG Total CO2 23.2 VBG O2 Sat (Calc) 92.3 H VBG Base Excess -2.9 L VBG Potassium 5.1 Glucose 197 H Lactate 0.9 Sodium 136.0 Potassium Chloride 108.0 H Carbon Dioxide Anion Gap BUN Creatinine Est GFR ( Amer) Est GFR (Non-Af Amer) POC Glucose (mg/dL) 170 H Random Glucose Calcium Total Bilirubin AST ALT Alkaline Phosphatase Troponin I NT-Pro-B Natriuret Pep Total Protein Albumin Globulin Albumin/Globulin Ratio Venous Blood Potassium 5.1 Urine Color Straw Urine Clarity Clear Urine pH 7.0 Ur Specific Moon 1.011 Urine Protein 2+ H Urine Glucose (UA) 1+ H Urine Ketones Negative Urine Blood Negative Urine Nitrate Negative Urine Bilirubin Negative Urine Urobilinogen Normal Ur Leukocyte Esterase Neg Urine WBC (Auto) 1 Urine RBC (Auto) 4 H Urine Bacteria Rare
[2018-08-22] MEDS: Cefepime 1 GM in Sodium Chloride 0.9% 100 ML IVPB SCH (15:10)
[2018-08-22] MEDS: Ergocalciferol 50,000 Intl Units Cap PO SCH (15:11)
--- NOTE | 2018-08-22 19:38 | CP.PCM.CON ---
History of Present Illness - History of Present Illness History of Present Illness: Podiatry Consult Note for Dr. Barrientos 67M with PMH Arthritis (KNEE/ L ANKLE), Diabetes, HTN, Hypercholesterolemia seen at bedside for left hallux ulceration. Patient states that he has been seen by Dr. Barrientos in the past for his ulceration and has had surgery on both feet by Dr. Barrientos as well. He is AAO x 3 and NAD, resting comfortably in bed. States that he has minimal pain to his foot. Denies any recent drainage, malodor, erythema, increased warmth or other clinical signs of infection to his ulcer site. Denies any recent N/V/F/C/CP/SOB/D Review of Systems - Review of Systems All systems: reviewed and no additional remarkable complaints except Review of Systems: as per HPI Past Patient History - Infectious Disease Hx of Infectious Diseases: None - Past Medical History & Family History Past Medical History?: Yes - Past Social History Smoking Status: Never Smoked - CARDIAC Hx Cardiac Disorders: Yes Hx Hypercholesterolemia: Yes Hx Hypertension: Yes - PULMONARY Hx Respiratory Disorders: No - NEUROLOGICAL Hx Neurological Disorder: No - HEENT Hx HEENT Problems: No - RENAL Hx Chronic Kidney Disease: No - ENDOCRINE/METABOLIC Hx Endocrine Disorders: Yes Hx Diabetes Mellitus Type 2: Yes - HEMATOLOGICAL/ONCOLOGICAL Hx Blood Disorders: No Hx Blood Transfusions: No - INTEGUMENTARY Hx Dermatological Problems: Yes Hx Cellulitis: Yes (BILAT FOOT) - MUSCULOSKELETAL/RHEUMATOLOGICAL Hx Musculoskeletal Disorders: Yes Hx Arthritis: Yes (KNEE/ L ANKLE) Hx Falls: No - GASTROINTESTINAL Hx Gastrointestinal Disorders: Yes Hx Gastroesophageal Reflux: Yes - GENITOURINARY/GYNECOLOGICAL Hx Genitourinary Disorders: No - PSYCHIATRIC Hx Psychophysiologic Disorder: No Hx Substance Use: No - SURGICAL HISTORY Hx Surgeries: Yes Other/Comment: debridement right foot 2014. DEBRIDEMENT LT.FOOT 08/2016 - ANESTHESIA Hx Anesthesia: Yes Hx Anesthesia Reactions: No Hx Malignant Hyperthermia: No Meds Allergies/Adverse Reactions: Allergies Allergy/AdvReac Type Severity Reaction Status Date / Time shrimp Allergy RASH Verified 08/21/18 21:47 - Medications Medications: Current Medications Docusate Sodium (Colace) 100 mg PO BID [facility] Last Admin: 08/22/18 17:34 Dose: 100 mg Ergocalciferol (Drisdol 50,000 Intl Units Cap) 1 cap PO Q7D [facility] Last Admin: 08/22/18 15:11 Dose: 1 cap Ferrous Gluconate (Fergon) 324 mg PO TID [facility] Last Admin: 08/22/18 17:35 Dose: 324 mg Heparin Sodium (Porcine) (Heparin) 5,000 units SC Q12 [facility] Hydralazine HCl (Apresoline) 100 mg PO BID [facility] Last Admin: 08/22/18 17:34 Dose: 100 mg Cefepime HCl 1 gm/ Sodium (Chloride) 100 mls @ 100 mls/hr IVPB Q24H [facility] Last Admin: 08/22/18 15:10 Dose: 100 mls/hr Insulin Human Regular (Novolin R) 0 unit SC ACHS [facility]; Protocol Last Admin: 08/22/18 17:23 Dose: Not Given Minoxidil (Minoxidil) 2.5 mg PO DAILY [facility] Last Admin: 08/22/18 12:10 Dose: 2.5 mg Pantoprazole Sodium (Protonix Ec Tab) 40 mg PO DAILY [facility] Last Admin: 08/22/18 12:09 Dose: 40 mg Tamsulosin HCl (Flomax) 0.4 mg PO DAILY [facility] Last Admin: 08/22/18 12:10 Dose: 0.4 mg Thiamine HCl (Vitamin B1 Tab) 100 mg PO BID [facility] Last Admin: 08/22/18 17:34 Dose: 100 mg Physical Exam - Constitutional Appears: Well, Non-toxic, No Acute Distress - Extremities Exam Additional comments: LLE focused exam: Vasc: DP/PT pulses faintly palpable 1/4 b/l. Skin temperature warm to warm from proximal to distal. CFT < 3 seconds to all digits. Minimal periwound edema noted to ulcer site Neuro: Epicritic and protective sensation grossly intact but diminished b/l Derm: Hypergranular ulceration measuring roughly 2 cm x 2.5 cm noted to plantar lateral aspect of patients hallux. No erythema, malodor, drainage, tracking, tunneling, undermining, or other clinical signs of infection appreciated at this time. Ulceration base appears friable to touch MSK: Minimal pain on palpation to ulceration site. No gross deformities noted. ROM WNL at all major joints. - Neurological Exam Neurological exam: Alert, Oriented x3 - Psychiatric Exam Psychiatric exam: Normal Affect, Normal Mood Results - Vital Signs Recent Vital Signs: Last Vital Signs Temp 97.7 F 08/22/18 14:56 Pulse 67 08/22/18 18:42 Resp 20 08/22/18 14:56 BP 168/72 H 08/22/18 14:56 Pulse Ox 96 08/22/18 14:56 - Labs Result Diagrams: 08/21/18 22:40 08/21/18 22:40 Labs: Laboratory Results - last 24 hr 08/21/18 08/21/18 08/21/18 22:40 22:40 22:40 WBC 8.4 RBC 3.36 L Hgb 8.8 L Hct 27.4 L MCV 81.5 MCH 26.1 L MCHC 32.0 L RDW 14.3 Plt Count 237 MPV 7.4 Neut % (Auto) 59.3 Lymph % (Auto) 15.5 L [place] % (Auto) 10.5 H Eos % (Auto) 13.6 H Baso % (Auto) 1.1 Neut # (Auto) 5.0 Lymph # (Auto) 1.3 [place] # (Auto) 0.9 H Eos # (Auto) 1.1 H Baso # (Auto) 0.1 PT 11.5 INR 1.1 APTT 39 H pO2 VBG pH VBG pCO2 VBG HCO3 VBG Total CO2 VBG O2 Sat (Calc) VBG Base Excess VBG Potassium Glucose Lactate Sodium 136 Potassium 5.1 Chloride 107 Carbon Dioxide 23 Anion Gap 11 BUN 37 H Creatinine 2.1 H Est GFR ( Amer) 39 Est GFR (Non-Af Amer) 32 POC Glucose (mg/dL) Random Glucose 194 H Calcium 8.0 L Total Bilirubin 0.2 AST 27 ALT 25 Alkaline Phosphatase 94 Troponin I < 0.0120 NT-Pro-B Natriuret Pep 1420 H Total Protein 6.8 Albumin 3.7 Globulin 3.1 Albumin/Globulin Ratio 1.2 Venous Blood Potassium Urine Color Urine Clarity Urine pH Ur Specific [place] Urine Protein Urine Glucose (UA) Urine Ketones Urine Blood Urine Nitrate Urine Bilirubin Urine Urobilinogen Ur Leukocyte Esterase Urine WBC (Auto) Urine RBC (Auto) Urine Bacteria 08/21/18 08/21/18 08/22/18 22:44 23:59 12:46 WBC RBC Hgb Hct MCV MCH MCHC RDW Plt Count MPV Neut % (Auto) Lymph % (Auto) [place] % (Auto) Eos % (Auto) Baso % (Auto) Neut # (Auto) Lymph # (Auto) [place] # (Auto) Eos # (Auto) Baso # (Auto) PT INR APTT pO2 57 H VBG pH 7.37 VBG pCO2 38 L VBG HCO3 22.4 VBG Total CO2 23.2 VBG O2 Sat (Calc) 92.3 H VBG Base Excess -2.9 L VBG Potassium 5.1 Glucose 197 H Lactate 0.9 Sodium 136.0 Potassium Chloride 108.0 H Carbon Dioxide Anion Gap BUN Creatinine Est GFR ( Amer) Est GFR (Non-Af Amer) POC Glucose (mg/dL) 170 H Random Glucose Calcium Total Bilirubin AST ALT Alkaline Phosphatase Troponin I NT-Pro-B Natriuret Pep Total Protein Albumin Globulin Albumin/Globulin Ratio Venous Blood Potassium 5.1 Urine Color Straw Urine Clarity Clear Urine pH 7.0 Ur Specific [place] 1.011 Urine Protein 2+ H Urine Glucose (UA) 1+ H Urine Ketones Negative Urine Blood Negative Urine Nitrate Negative Urine Bilirubin Negative Urine Urobilinogen Normal Ur Leukocyte Esterase Neg Urine WBC (Auto) 1 Urine RBC (Auto) 4 H Urine Bacteria Rare Assessment & Plan - Assessment and Plan (Free Text) Assessment: 67M seen at bedside for left hallux ulceration. Plan: Patient seen and evaluated Plan discussed with Dr. Barrientos Afebtameal, absent leukocytosis DSD applied to wound No plan for surgical intervention at this time Podiatry will continue with basic wound care - Date & Time Date: 08/22/18 Time: 16:00
--- NOTE | 2018-08-22 20:30 | CARD ---
APPROVED REPORT Date of service: 08/21/2018 EKG Measurement Heart [id number] <Conclusion> Normal sinus rhythm Normal ECG
[2018-08-23] MEDS: (Novolin R) Insulin Human Regular 100 units/ml vial SC SCH ×4 (07:55→21:53)
[2018-08-23] MEDS: Pantoprazole 40 mg EC Tab PO SCH (09:29)
[2018-08-23 11:55] LABS: CALCIUM 8.1 mg/dl (8.6-10.4)
[2018-08-23] MEDS: Cefepime 1 GM in Sodium Chloride 0.9% 100 ML IVPB SCH (12:25)
--- NOTE | 2018-08-23 18:17 | CP.PCM.PN ---
Subjective - Date & Time of Evaluation Date of Evaluation: 08/23/18 Time of Evaluation: 11:00 - Subjective Subjective: clinically same Objective - Vital Signs/Intake and Output Vital Signs (last 24 hours): Temp Pulse Resp BP Pulse Ox 97.3 F L 71 20 162/73 H 97 08/23/18 15:25 08/23/18 16:00 08/23/18 15:25 08/23/18 15:25 08/23/18 15:25 Intake and Output: 08/23/18 08/23/18 06:59 18:59 Intake Total 480 Balance 480 - Medications Medications: Current Medications Docusate Sodium (Colace) 100 mg PO BID REPLACED BY [facility] Last Admin: 08/23/18 17:44 Dose: 100 mg Ergocalciferol (Drisdol 50,000 Intl Units Cap) 1 cap PO Q7D REPLACED BY [facility] Last Admin: 08/22/18 15:11 Dose: 1 cap Ferrous Gluconate (Fergon) 324 mg PO TID REPLACED BY [facility] Last Admin: 08/23/18 17:44 Dose: 324 mg Furosemide (Lasix) 40 mg IVP DAILY REPLACED BY [facility] Last Admin: 08/23/18 09:31 Dose: 40 mg Heparin Sodium (Porcine) (Heparin) 5,000 units SC Q12 REPLACED BY [facility] Last Admin: 08/23/18 09:30 Dose: 5,000 units Hydralazine HCl (Apresoline) 100 mg PO BID REPLACED BY [facility] Last Admin: 08/23/18 17:44 Dose: 100 mg Cefepime HCl 1 gm/ Sodium (Chloride) 100 mls @ 100 mls/hr IVPB Q24H REPLACED BY [facility] Last Admin: 08/23/18 12:25 Dose: 100 mls/hr Insulin Human Regular (Novolin R) 0 unit SC ACHS REPLACED BY [facility]; Protocol Last Admin: 08/23/18 17:28 Dose: Not Given Minoxidil (Minoxidil) 2.5 mg PO DAILY [facility]PLACED BY [facility] Last Admin: 08/23/18 09:29 Dose: 2.5 mg Pantoprazole Sodium (Protonix Ec Tab) 40 mg PO DAILY [facility]PLACED BY [facility] Last Admin: 08/23/18 09:29 Dose: 40 mg Tamsulosin HCl (Flomax) 0.4 mg PO DAILY [facility]PLACED BY [facility] Last Admin: 08/23/18 09:29 Dose: 0.4 mg Thiamine HCl (Vitamin B1 Tab) 100 mg PO BID [facility] Last Admin: 08/23/18 17:44 Dose: 100 mg - Labs Labs: 08/21/18 22:40 08/23/18 11:34 PT 11.5 SECONDS (9.7-12.2) 08/21/18 22:40 INR 1.1 08/21/18 22:40 APTT 39 SECONDS (21-34) H 08/21/18 22:40 - Constitutional Appears: Well - Head Exam Head Exam: ATRAUMATIC, NORMAL INSPECTION, NORMOCEPHALIC - Eye Exam Eye Exam: EOMI, Normal appearance, PERRL Pupil Exam: NORMAL ACCOMODATION, PERRL - ENT Exam ENT Exam: Mucous Membranes Moist, Normal Exam - Neck Exam Neck Exam: Full ROM, Normal Inspection. absent: Lymphadenopathy - Respiratory Exam Respiratory Exam: Decreased Breath Sounds - Cardiovascular Exam Cardiovascular Exam: REGULAR RHYTHM, +S1, +S2 - GI/Abdominal Exam GI & Abdominal Exam: Soft, Diminished Bowel Sounds - Rectal Exam Rectal Exam: Deferred
--- NOTE | 2018-08-23 18:44 | CP.PCM.PN ---
Subjective - Date & Time of Evaluation Date of Evaluation: 08/23/18 Time of Evaluation: 15:45 - Subjective Subjective: Podiatry Progress Note for Dr. Barrientos 67M seen and evaluated at bedside for left hallux ulceration. Patient is AAO x 3 and NAD at time of visit. Denies any acute overnight events or new pedal complaints. Denies any pain. Denies any recent N/V/F/C/CP/SOB/D Objective - Vital Signs/Intake and Output Vital Signs (last 24 hours): Temp Pulse Resp BP Pulse Ox 97.3 F L 71 20 162/73 H 97 08/23/18 15:25 08/23/18 16:00 08/23/18 15:25 08/23/18 15:25 08/23/18 15:25 Intake and Output: 08/23/18 08/23/18 06:59 18:59 Intake Total 480 Balance 480 - Medications Medications: Current Medications Docusate Sodium (Colace) 100 mg PO BID [facility] Last Admin: 08/23/18 17:44 Dose: 100 mg Ergocalciferol (Drisdol 50,000 Intl Units Cap) 1 cap PO Q7D [facility] Last Admin: 08/22/18 15:11 Dose: 1 cap Ferrous Gluconate (Fergon) 324 mg PO TID [facility] Last Admin: 08/23/18 17:44 Dose: 324 mg Furosemide (Lasix) 40 mg IVP DAILY [facility] Last Admin: 08/23/18 09:31 Dose: 40 mg Heparin Sodium (Porcine) (Heparin) 5,000 units SC Q12 [facility] Last Admin: 08/23/18 09:30 Dose: 5,000 units Hydralazine HCl (Apresoline) 100 mg PO BID [facility] Last Admin: 08/23/18 17:44 Dose: 100 mg Cefepime HCl 1 gm/ Sodium (Chloride) 100 mls @ 100 mls/hr IVPB Q24H [facility] Last Admin: 08/23/18 12:25 Dose: 100 mls/hr Insulin Human Regular (Novolin R) 0 unit SC ACHS [facility]; Protocol Last Admin: 08/23/18 17:28 Dose: Not Given Minoxidil (Minoxidil) 2.5 mg PO DAILY [facility] Last Admin: 08/23/18 09:29 Dose: 2.5 mg Pantoprazole Sodium (Protonix Ec Tab) 40 mg PO DAILY [facility] Last Admin: 08/23/18 09:29 Dose: 40 mg Tamsulosin HCl (Flomax) 0.4 mg PO DAILY [facility] Last Admin: 08/23/18 09:29 Dose: 0.4 mg Thiamine HCl (Vitamin B1 Tab) 100 mg PO BID [facility] Last Admin: 08/23/18 17:44 Dose: 100 mg - Labs Labs: 08/21/18 22:40 08/23/18 11:34 PT 11.5 SECONDS (9.7-12.2) 08/21/18 22:40 INR 1.1 08/21/18 22:40 APTT 39 SECONDS (21-34) H 08/21/18 22:40 - Constitutional Appears: Well, Non-toxic, No Acute Distress - Extremities Exam Additional comments: LE focused exam: Vasc: DP/PT pulses faintly palpable 1/4 b/l. Skin temperature warm to warm from proximal to distal. CFT < 3 seconds to all digits. Minimal periwound edema noted to ulcer site Neuro: Epicritic and protective sensation grossly intact but diminished b/l Derm: Hypergranular ulceration measuring roughly 2 cm x 2.5 cm noted to plantar lateral aspect of patients hallux. No erythema, malodor, drainage, tracking, tunneling, undermining, or other clinical signs of infection appreciated at this time. MSK: Minimal pain on palpation to ulceration site. No gross deformities noted. ROM WNL at all major joints. - Neurological Exam Neurological Exam: Alert, Awake, Oriented x3 - Psychiatric Exam Psychiatric exam: Normal Affect, Normal Mood Assessment and Plan - Assessment and Plan (Free Text) Assessment: 67M seen and evaluated at bedside for left hallux ulceration Plan: Patient seen and evaluated with Dr. Barrientos Afebrile, absent leukocytosis Betadine, DSD applied to wound No plan for surgical intervention at this time Podiatry will continue with basic wound care
[2018-08-24] MEDS: (Novolin R) Insulin Human Regular 100 units/ml vial SC SCH ×4 (07:36→21:04)
[2018-08-24] MEDS: Pantoprazole 40 mg EC Tab PO SCH (10:14)
--- NOTE | 2018-08-24 12:57 | CP.PCM.PN ---
Subjective - Date & Time of Evaluation Date of Evaluation: 08/24/18 Time of Evaluation: 11:30 - Subjective Subjective: clinically same Objective - Vital Signs/Intake and Output Vital Signs (last 24 hours): Temp Pulse Resp BP Pulse Ox 97.4 F L 72 20 183/84 H 97 08/24/18 07:05 08/24/18 07:10 08/24/18 07:05 08/24/18 10:15 08/24/18 07:05 Intake and Output: 08/24/18 08/24/18 06:59 18:59 Intake Total 400 Balance 400 - Medications Medications: Current Medications Docusate Sodium (Colace) 100 mg PO BID [facility] Last Admin: 08/24/18 10:14 Dose: 100 mg Ergocalciferol (Drisdol 50,000 Intl Units Cap) 1 cap PO Q7D [facility] Last Admin: 08/22/18 15:11 Dose: 1 cap Ferrous Gluconate (Fergon) 324 mg PO TID [facility] Last Admin: 08/24/18 10:15 Dose: 324 mg Furosemide (Lasix) 40 mg IVP DAILY [facility] Last Admin: 08/24/18 10:15 Dose: 40 mg Heparin Sodium (Porcine) (Heparin) 5,000 units SC Q12 [facility] Last Admin: 08/24/18 10:15 Dose: 5,000 units Hydralazine HCl (Apresoline) 100 mg PO BID [facility] Last Admin: 08/24/18 10:14 Dose: 100 mg Cefepime HCl 1 gm/ Sodium (Chloride) 100 mls @ 100 mls/hr IVPB Q24H [facility] Last Admin: 08/23/18 12:25 Dose: 100 mls/hr Insulin Human Regular (Novolin R) 0 unit SC ACHS [facility]; Protocol Last Admin: 08/24/18 12:43 Dose: Not Given Minoxidil (Minoxidil) 2.5 mg PO DAILY [facility] Last Admin: 08/24/18 10:14 Dose: 2.5 mg Pantoprazole Sodium (Protonix Ec Tab) 40 mg PO DAILY [facility] Last Admin: 08/24/18 10:14 Dose: 40 mg Tamsulosin HCl (Flomax) 0.4 mg PO DAILY [facility] Last Admin: 08/24/18 10:15 Dose: 0.4 mg Thiamine HCl (Vitamin B1 Tab) 100 mg PO BID [facility] Last Admin: 08/24/18 10:14 Dose: 100 mg - Labs Labs: 08/21/18 22:40 08/23/18 11:34 PT 11.5 SECONDS (9.7-12.2) 08/21/18 22:40 INR 1.1 08/21/18 22:40 APTT 39 SECONDS (21-34) H 08/21/18 22:40
[2018-08-24] MEDS: Cefepime 1 GM in Sodium Chloride 0.9% 100 ML IVPB SCH (13:58)
--- NOTE | 2018-08-24 15:36 | CP.PCM.PN ---
Subjective - Date & Time of Evaluation Date of Evaluation: 08/24/18 Time of Evaluation: 15:34 - Subjective Subjective: Podiatry Progress Note for Dr. Barrientos 67M seen and evaluated at bedside for left hallux ulceration. Patient is AAO x 3 and NAD at time of visit. Denies any acute overnight events or new pedal complaints. Denies any pain. States that his dressing came off during the night. Denies any recent N/V/F/C/CP/SOB/D Objective - Vital Signs/Intake and Output Vital Signs (last 24 hours): Temp Pulse Resp BP Pulse Ox 97.4 F L 66 20 183/84 H 97 08/24/18 07:05 08/24/18 12:08 08/24/18 07:05 08/24/18 10:15 08/24/18 07:05 Intake and Output: 08/24/18 08/24/18 06:59 18:59 Intake Total 400 Balance 400 - Medications Medications: Current Medications Docusate Sodium (Colace) 100 mg PO BID [facility] Last Admin: 08/24/18 10:14 Dose: 100 mg Ergocalciferol (Drisdol 50,000 Intl Units Cap) 1 cap PO Q7D [facility] Last Admin: 08/22/18 15:11 Dose: 1 cap Ferrous Gluconate (Fergon) 324 mg PO TID [facility] Last Admin: 08/24/18 14:01 Dose: 324 mg Furosemide (Lasix) 40 mg IVP BID [facility] Heparin Sodium (Porcine) (Heparin) 5,000 units SC Q12 [facility] Last Admin: 08/24/18 10:15 Dose: 5,000 units Hydralazine HCl (Apresoline) 100 mg PO BID [facility] Last Admin: 08/24/18 10:14 Dose: 100 mg Cefepime HCl 1 gm/ Sodium (Chloride) 100 mls @ 100 mls/hr IVPB Q24H [facility] Last Admin: 08/24/18 13:58 Dose: 100 mls/hr Insulin Human Regular (Novolin R) 0 unit SC ACHS [facility]; Protocol Last Admin: 08/24/18 12:43 Dose: Not Given Minoxidil (Minoxidil) 2.5 mg PO DAILY [facility] Last Admin: 08/24/18 10:14 Dose: 2.5 mg Pantoprazole Sodium (Protonix Ec Tab) 40 mg PO DAILY [facility] Last Admin: 08/24/18 10:14 Dose: 40 mg Tamsulosin HCl (Flomax) 0.4 mg PO DAILY [facility] Last Admin: 08/24/18 10:15 Dose: 0.4 mg Thiamine HCl (Vitamin B1 Tab) 100 mg PO BID [facility] Last Admin: 08/24/18 10:14 Dose: 100 mg - Labs Labs: 08/21/18 22:40 08/23/18 11:34 PT 11.5 SECONDS (9.7-12.2) 08/21/18 22:40 INR 1.1 08/21/18 22:40 APTT 39 SECONDS (21-34) H 08/21/18 22:40 - Constitutional Appears: Well, Non-toxic, No Acute Distress - Extremities Exam Additional comments: LE focused exam: Vasc: DP/PT pulses faintly palpable 1/4 b/l. Skin temperature warm to warm from proximal to distal. CFT < 3 seconds to all digits. Minimal periwound edema noted to ulcer site Neuro: Epicritic and protective sensation grossly intact but diminished b/l Derm: Hypergranular ulceration measuring roughly 2 cm x 2.5 cm noted to plantar lateral aspect of patients hallux. No erythema, malodor, drainage, tracking, tunneling, undermining, or other clinical signs of infection appreciated at this time. MSK: Minimal pain on palpation to ulceration site. No gross deformities noted. ROM WNL at all major joints. - Neurological Exam Neurological Exam: Alert, Awake, Oriented x3 - Psychiatric Exam Psychiatric exam: Normal Affect, Normal Mood Assessment and Plan - Assessment and Plan (Free Text) Assessment: 67M seen and evaluated at bedside for left hallux ulceration. Plan: Patient seen and evaluated Plan discussed with Dr. Barrientos Afebrile, absent leukocytosis Betadine, DSD applied to wound No plan for surgical intervention at this time Patient stable from podiatric standpoint Upon discharge, patient should follow up with Dr. Barrientos within one week Podiatry will continue with basic wound care
[2018-08-25] MEDS: (Novolin R) Insulin Human Regular 100 units/ml vial SC SCH ×4 (07:20→22:11)
[2018-08-25] MEDS: Pantoprazole 40 mg EC Tab PO SCH (10:27)
[2018-08-25 11:26] LABS: CALCIUM 8.3 mg/dl (8.6-10.4)
[2018-08-25] MEDS: Cefepime 1 GM in Sodium Chloride 0.9% 100 ML IVPB SCH (12:06)
--- NOTE | 2018-08-25 19:30 | CP.PCM.PN ---
Subjective - Date & Time of Evaluation Date of Evaluation: 08/25/18 Time of Evaluation: 09:15 - Subjective Subjective: clinically same Objective - Vital Signs/Intake and Output Vital Signs (last 24 hours): Temp Pulse Resp BP Pulse Ox 98.7 F 74 20 178/84 H 99 08/25/18 15:00 08/25/18 15:00 08/25/18 15:00 08/25/18 17:56 08/25/18 15:00 - Medications Medications: Current Medications Docusate Sodium (Colace) 100 mg PO BID [facility] Last Admin: 08/25/18 17:55 Dose: 100 mg Ergocalciferol (Drisdol 50,000 Intl Units Cap) 1 cap PO Q7D [facility] Last Admin: 08/22/18 15:11 Dose: 1 cap Ferrous Gluconate (Fergon) 324 mg PO TID [facility] Last Admin: 08/25/18 17:55 Dose: 324 mg Furosemide (Lasix) 40 mg IVP BID [facility] Last Admin: 08/25/18 17:56 Dose: 40 mg Heparin Sodium (Porcine) (Heparin) 5,000 units SC Q12 [facility] Last Admin: 08/25/18 10:28 Dose: 5,000 units Hydralazine HCl (Apresoline) 100 mg PO Q8 [facility] Last Admin: 08/25/18 14:59 Dose: 100 mg Cefepime HCl 1 gm/ Sodium (Chloride) 100 mls @ 100 mls/hr IVPB Q24H [facility] Last Admin: 08/25/18 12:06 Dose: 100 mls/hr Insulin Human Regular (Novolin R) 0 unit SC ACHS [facility]; Protocol Last Admin: 08/25/18 17:00 Dose: Not Given Minoxidil (Minoxidil) 5 mg PO DAILY [facility] Last Admin: 08/25/18 10:27 Dose: 5 mg Pantoprazole Sodium (Protonix Ec Tab) 40 mg PO DAILY [facility] Last Admin: 08/25/18 10:27 Dose: 40 mg Tamsulosin HCl (Flomax) 0.4 mg PO DAILY [facility] Last Admin: 08/25/18 10:27 Dose: 0.4 mg Thiamine HCl (Vitamin B1 Tab) 100 mg PO BID [facility] Last Admin: 08/25/18 17:55 Dose: 100 mg - Labs Labs: 08/21/18 22:40 08/25/18 11:06 PT 11.5 SECONDS (9.7-12.2) 08/21/18 22:40 INR 1.1 08/21/18 22:40 APTT 39 SECONDS (21-34) H 08/21/18 22:40 - Constitutional Appears: Well - Head Exam Head Exam: ATRAUMATIC, NORMAL INSPECTION, NORMOCEPHALIC - Eye Exam Eye Exam: EOMI, Normal appearance, PERRL Pupil Exam: NORMAL ACCOMODATION, PERRL - ENT Exam ENT Exam: Mucous Membranes Moist, Normal Exam - Neck Exam Neck Exam: Full ROM, Normal Inspection. absent: Lymphadenopathy - Respiratory Exam Respiratory Exam: Decreased Breath Sounds - Cardiovascular Exam Cardiovascular Exam: REGULAR RHYTHM, +S1, +S2 - GI/Abdominal Exam GI & Abdominal Exam: Soft, Diminished Bowel Sounds - Rectal Exam Rectal Exam: Deferred
[2018-08-26] MEDS: (Novolin R) Insulin Human Regular 100 units/ml vial SC SCH ×5 (08:01→21:45)
[2018-08-26] MEDS: Pantoprazole 40 mg EC Tab PO SCH (10:24)
--- NOTE | 2018-08-26 12:00 | CP.PCM.PN ---
Subjective - Date & Time of Evaluation Date of Evaluation: 08/26/18 Time of Evaluation: 12:00 - Subjective Subjective: Podiatry Progress Note for Dr. Barrientos 67 y/o male seen and evaluated at bedside this morning with Dr. Barrientos for left hallux ulceration. Patient is AAO x 3 and NAD at time of visit. Denies any acute overnight events or new pedal complaints. Denies any pain to the left foot. Denies any recent N/V/F/C/CP/SOB/D Objective - Vital Signs/Intake and Output Vital Signs (last 24 hours): Temp Pulse Resp BP Pulse Ox 98 F 75 20 119/66 98 08/26/18 07:00 08/26/18 07:00 08/26/18 07:00 08/26/18 10:24 08/26/18 07:00 - Medications Medications: Current Medications Docusate Sodium (Colace) 100 mg PO BID [facility] Last Admin: 08/26/18 10:24 Dose: 100 mg Ergocalciferol (Drisdol 50,000 Intl Units Cap) 1 cap PO Q7D [facility] Last Admin: 08/22/18 15:11 Dose: 1 cap Ferrous Gluconate (Fergon) 324 mg PO TID [facility] Last Admin: 08/26/18 10:24 Dose: 324 mg Furosemide (Lasix) 40 mg IVP BID [facility] Last Admin: 08/26/18 10:24 Dose: 40 mg Hydralazine HCl (Apresoline) 100 mg PO Q8 [facility] Last Admin: 08/26/18 06:49 Dose: 100 mg Cefepime HCl 1 gm/ Sodium (Chloride) 100 mls @ 100 mls/hr IVPB Q24H [facility] Last Admin: 08/25/18 12:06 Dose: 100 mls/hr Insulin Human Regular (Novolin R) 0 unit SC ACHS [facility]; Protocol Last Admin: 08/26/18 11:34 Dose: Not Given Minoxidil (Minoxidil) 5 mg PO DAILY [facility] Last Admin: 08/26/18 10:24 Dose: 5 mg Pantoprazole Sodium (Protonix Ec Tab) 40 mg PO DAILY [facility] Last Admin: 08/26/18 10:24 Dose: 40 mg Tamsulosin HCl (Flomax) 0.4 mg PO DAILY [facility] Last Admin: 08/26/18 10:24 Dose: 0.4 mg Thiamine HCl (Vitamin B1 Tab) 100 mg PO BID [facility] Last Admin: 08/26/18 10:24 Dose: 100 mg - Labs Labs: 08/21/18 22:40 08/25/18 11:06 PT 11.5 SECONDS (9.7-12.2) 08/21/18 22:40 INR 1.1 08/21/18 22:40 APTT 39 SECONDS (21-34) H 08/21/18 22:40 - Constitutional Appears: Well, Non-toxic, No Acute Distress - Extremities Exam Additional comments: Lower extremity focused exam: Vasc: DP/PT pulses faintly palpable 1/4 B/L. Skin temperature warm to warm from proximal to distal. CFT < 3 seconds to all digits. Minimal periwound edema noted to ulcer site Neuro: Epicritic and protective sensation grossly intact but diminished B/L Derm: Hypergranular ulceration measuring roughly 2 cm x 2.5 cm x 0.1cm noted to plantar lateral aspect of left foot great toe. No erythema, malodor, drainage, tracking, tunneling, undermining, or other clinical signs of infection a ppreciated at this time. Ortho: No pain on palpation to ulceration site. No gross deformities noted. ROM WNL at all major joints. No posterior calf tenderness on palpation - Neurological Exam Neurological Exam: Alert, Awake, Oriented x3 - Psychiatric Exam Psychiatric exam: Normal Affect, Normal Mood Assessment and Plan - Assessment and Plan (Free Text) Assessment: 67 y/o male with left foot hallux ulceration secondary to DM and pressure Plan: Patient seen and evaluated with Dr. Barrientos Afebrile, absent leukocytosis Betadine, DSD applied to wound No plan for surgical intervention at this time Patient stable from podiatric standpoint Upon discharge, patient should follow up with Dr. Barrientos within one week Podiatry will continue with basic wound care
[2018-08-26] MEDS: Cefepime 1 GM in Sodium Chloride 0.9% 100 ML IVPB SCH (13:23)
--- NOTE | 2018-08-26 15:34 | CP.PCM.PN ---
Subjective - Date & Time of Evaluation Date of Evaluation: 08/26/18 Time of Evaluation: 09:00 - Subjective Subjective: clinically same Objective - Vital Signs/Intake and Output Vital Signs (last 24 hours): Temp Pulse Resp BP Pulse Ox 98 F 75 20 119/66 98 08/26/18 07:00 08/26/18 07:00 08/26/18 07:00 08/26/18 10:24 08/26/18 07:00 - Medications Medications: Current Medications Docusate Sodium (Colace) 100 mg PO BID [facility] Last Admin: 08/26/18 10:24 Dose: 100 mg Ergocalciferol (Drisdol 50,000 Intl Units Cap) 1 cap PO Q7D [facility] Last Admin: 08/22/18 15:11 Dose: 1 cap Ferrous Gluconate (Fergon) 324 mg PO TID [facility] Last Admin: 08/26/18 13:23 Dose: 324 mg Furosemide (Lasix) 40 mg IVP BID [facility] Last Admin: 08/26/18 10:24 Dose: 40 mg Hydralazine HCl (Apresoline) 100 mg PO Q8 [facility] Last Admin: 08/26/18 13:23 Dose: 100 mg Cefepime HCl 1 gm/ Sodium (Chloride) 100 mls @ 100 mls/hr IVPB Q24H [facility] Last Admin: 08/26/18 13:23 Dose: 100 mls/hr Insulin Human Regular (Novolin R) 0 unit SC ACHS [facility]; Protocol Last Admin: 08/26/18 11:34 Dose: Not Given Minoxidil (Minoxidil) 5 mg PO DAILY [facility] Last Admin: 08/26/18 10:24 Dose: 5 mg Pantoprazole Sodium (Protonix Ec Tab) 40 mg PO DAILY [facility] Last Admin: 08/26/18 10:24 Dose: 40 mg Tamsulosin HCl (Flomax) 0.4 mg PO DAILY [facility] Last Admin: 08/26/18 10:24 Dose: 0.4 mg Thiamine HCl (Vitamin B1 Tab) 100 mg PO BID [facility] Last Admin: 08/26/18 10:24 Dose: 100 mg - Labs Labs: 08/21/18 22:40 08/25/18 11:06 PT 11.5 SECONDS (9.7-12.2) 08/21/18 22:40 INR 1.1 08/21/18 22:40 APTT 39 SECONDS (21-34) H 08/21/18 22:40 - Constitutional Appears: Well - Head Exam Head Exam: ATRAUMATIC, NORMAL INSPECTION, NORMOCEPHALIC - Eye Exam Eye Exam: EOMI, Normal appearance, PERRL Pupil Exam: NORMAL ACCOMODATION, PERRL - ENT Exam ENT Exam: Mucous Membranes Moist, Normal Exam - Neck Exam Neck Exam: Full ROM, Normal Inspection. absent: Lymphadenopathy - Respiratory Exam Respiratory Exam: Decreased Breath Sounds - Cardiovascular Exam Cardiovascular Exam: REGULAR RHYTHM, +S1, +S2 - GI/Abdominal Exam GI & Abdominal Exam: Soft, Diminished Bowel Sounds - Rectal Exam Rectal Exam: Deferred
[2018-08-27] MEDS: (Novolin R) Insulin Human Regular 100 units/ml vial SC SCH ×4 (08:06→22:16)
[2018-08-27] MEDS: Pantoprazole 40 mg EC Tab PO SCH (09:49)
[2018-08-27] MEDS: Cefepime 1 GM in Sodium Chloride 0.9% 100 ML IVPB SCH (12:22)
--- NOTE | 2018-08-27 17:05 | CP.PCM.PN ---
Subjective - Date & Time of Evaluation Date of Evaluation: 08/27/18 Time of Evaluation: 10:00 - Subjective Subjective: clinically same Objective - Vital Signs/Intake and Output Vital Signs (last 24 hours): Temp Pulse Resp BP Pulse Ox 97.7 F 65 18 175/80 H 97 08/27/18 07:00 08/27/18 07:30 08/27/18 07:00 08/27/18 09:49 08/27/18 07:00 Intake and Output: 08/27/18 08/27/18 06:59 18:59 Intake Total 480 Balance 480 - Medications Medications: Current Medications Docusate Sodium (Colace) 100 mg PO BID [facility] Last Admin: 08/27/18 09:49 Dose: 100 mg Ergocalciferol (Drisdol 50,000 Intl Units Cap) 1 cap PO Q7D [facility] Last Admin: 08/22/18 15:11 Dose: 1 cap Ferrous Gluconate (Fergon) 324 mg PO TID [facility] Last Admin: 08/27/18 14:36 Dose: 324 mg Furosemide (Lasix) 40 mg IVP BID [facility] Last Admin: 08/27/18 09:49 Dose: 40 mg Hydralazine HCl (Apresoline) 100 mg PO Q8 [facility] Last Admin: 08/27/18 14:36 Dose: 100 mg Cefepime HCl (Maxipime Iv 1 Gm Premix) 1 gm in 50 mls @ 100 mls/hr IVPB Q24H [facility]S [facility]; Protocol Insulin Human Regular (Novolin R) 0 unit SC ACHS [facility]; Protocol Last Admin: 08/27/18 12:21 Dose: 2 units Minoxidil (Minoxidil) 5 mg PO DAILY [facility] Last Admin: 08/27/18 09:49 Dose: 5 mg Pantoprazole Sodium (Protonix Ec Tab) 40 mg PO DAILY [facility] Last Admin: 08/27/18 09:49 Dose: 40 mg Tamsulosin HCl (Flomax) 0.4 mg PO DAILY [facility] Last Admin: 08/27/18 09:49 Dose: 0.4 mg Thiamine HCl (Vitamin B1 Tab) 100 mg PO BID [facility] Last Admin: 08/27/18 09:49 Dose: 100 mg - Labs Labs: 08/21/18 22:40 08/25/18 11:06 PT 11.5 SECONDS (9.7-12.2) 08/21/18 22:40 INR 1.1 08/21/18 22:40 APTT 39 SECONDS (21-34) H 08/21/18 22:40 - Constitutional Appears: Well - Head Exam Head Exam: ATRAUMATIC, NORMAL INSPECTION, NORMOCEPHALIC - Eye Exam Eye Exam: EOMI, Normal appearance, PERRL Pupil Exam: NORMAL ACCOMODATION, PERRL - ENT Exam ENT Exam: Mucous Membranes Moist, Normal Exam - Neck Exam Neck Exam: Full ROM, Normal Inspection. absent: Lymphadenopathy - Respiratory Exam Respiratory Exam: Decreased Breath Sounds - Cardiovascular Exam Cardiovascular Exam: REGULAR RHYTHM, +S1, +S2 - GI/Abdominal Exam GI & Abdominal Exam: Soft, Diminished Bowel Sounds - Rectal Exam Rectal Exam: Deferred
[2018-08-28] MEDS: (Novolin R) Insulin Human Regular 100 units/ml vial SC SCH ×4 (08:09→21:52)
--- NOTE | 2018-08-28 09:58 | CP.PCM.PN ---
Subjective - Date & Time of Evaluation Date of Evaluation: 08/28/18 Time of Evaluation: 09:56 - Subjective Subjective: Podiatry Progress Note for Dr. Barrientos 67 y/o male seen and evaluated at bedside this morning with Dr. Barrientos for left hallux ulceration. Patient is AAO x 3 and NAD at time of visit. Denies any acute overnight events or new pedal complaints. Denies any pain to the left foot. Denies any recent N/V/F/C/CP/SOB/D Objective - Vital Signs/Intake and Output Vital Signs (last 24 hours): Temp Pulse Resp BP Pulse Ox 98 F 72 18 130/63 98 08/28/18 08:00 08/28/18 08:00 08/28/18 08:00 08/28/18 08:00 08/28/18 08:00 Intake and Output: 08/28/18 08/28/18 06:59 18:59 Intake Total 600 Balance 600 - Medications Medications: Current Medications Docusate Sodium (Colace) 100 mg PO BID [facility] Last Admin: 08/27/18 17:37 Dose: 100 mg Ergocalciferol (Drisdol 50,000 Intl Units Cap) 1 cap PO Q7D [facility] Last Admin: 08/22/18 15:11 Dose: 1 cap Ferrous Gluconate (Fergon) 324 mg PO TID [facility] Last Admin: 08/27/18 17:37 Dose: 324 mg Furosemide (Lasix) 40 mg IVP BID [facility] Last Admin: 08/27/18 17:37 Dose: 40 mg Hydralazine HCl (Apresoline) 100 mg PO Q8 [facility] Last Admin: 08/28/18 05:46 Dose: 100 mg Cefepime HCl (Maxipime Iv 1 Gm Premix) 1 gm in 50 mls @ 100 mls/hr IVPB Q24H [facility]; Protocol Insulin Human Regular (Novolin R) 0 unit SC ACHS [facility]; Protocol Last Admin: 08/28/18 08:09 Dose: 2 units Minoxidil (Minoxidil) 5 mg PO DAILY [facility] Last Admin: 08/27/18 09:49 Dose: 5 mg Pantoprazole Sodium (Protonix Ec Tab) 40 mg PO DAILY [facility] Last Admin: 08/27/18 09:49 Dose: 40 mg Tamsulosin HCl (Flomax) 0.4 mg PO DAILY [facility] Last Admin: 08/27/18 09:49 Dose: 0.4 mg Thiamine HCl (Vitamin B1 Tab) 100 mg PO BID [facility] Last Admin: 08/27/18 17:37 Dose: 100 mg - Labs Labs: 08/21/18 22:40 08/25/18 11:06 PT 11.5 SECONDS (9.7-12.2) 08/21/18 22:40 INR 1.1 08/21/18 22:40 APTT 39 SECONDS (21-34) H 08/21/18 22:40 - Constitutional Appears: Well, Non-toxic, No Acute Distress - Extremities Exam Additional comments: Lower extremity focused exam: Vasc: DP/PT pulses faintly palpable 1/4 B/L. Skin temperature warm to warm from proximal to distal. CFT < 3 seconds to all digits. Minimal periwound edema noted to ulcer site Neuro: Epicritic and protective sensation grossly intact but diminished B/L Derm: Hypergranular ulceration measuring roughly 2 cm x 2.5 cm x 0.1cm noted to plantar lateral aspect of left foot great toe. No erythema, malodor, drainage, tracking, tunneling, undermining, or other clinical signs of infection appreciated at this time. Ortho: No pain on palpation to ulceration site. No gross deformities noted. ROM WNL at all major joints. No posterior calf tenderness on palpation - Neurological Exam Neurological Exam: Alert, Awake, Oriented x3 - Psychiatric Exam Psychiatric exam: Normal Affect, Normal Mood Assessment and Plan - Assessment and Plan (Free Text) Assessment: 67 y/o male with left foot hallux ulceration secondary to DM and pressure Plan: Patient seen and evaluated with Dr. Barrientos Afebrile, absent leukocytosis Betadine, DSD applied to wound x-rays ordered -pending - please take new x-rays prior to d/c No plan for surgical intervention at this time Patient stable from podiatric standpoint Upon discharge, patient should follow up with Dr. Barrientos within one week Podiatry will continue with basic wound care while in-house
[2018-08-28] MEDS: Pantoprazole 40 mg EC Tab PO SCH (10:56)
[2018-08-28 11:34] LABS: CALCIUM 7.8 mg/dl (8.6-10.4)
[2018-08-28] MEDS: Cefepime IV 1 gm in Dextrose 1 GM/50 ML BAG IVPB SCH (12:36)
--- NOTE | 2018-08-28 14:12 | RAD ---
Date of service: 08/28/2018 PROCEDURE: Left Foot Radiographs. HISTORY: r/o OM of hallux COMPARISON: None. FINDINGS: BONES: No fracture. Plantar calcaneal spur. No lytic or blastic osseous lesion. No osseous erosion or periosteal reaction. JOINTS: Normal. SOFT TISSUES: Normal. OTHER FINDINGS: None. IMPRESSION: No plain radiographic evidence of osteomyelitis
[2018-08-28] MEDS ORDERED: Sodium Chloride 0.9% 500 ML IV SCH (15:15)
[2018-08-28 17:39] VITALS: RESP 20
--- NOTE | 2018-08-28 19:10 | CP.PCM.PN ---
Subjective - Date & Time of Evaluation Date of Evaluation: 08/28/18 Time of Evaluation: 10:15 - Subjective Subjective: clinically sane Objective - Vital Signs/Intake and Output Vital Signs (last 24 hours): Temp Pulse Resp BP Pulse Ox 97.7 F 76 20 127/52 L 97 08/28/18 15:00 08/28/18 15:00 08/28/18 15:00 08/28/18 15:00 08/28/18 15:00 - Medications Medications: Current Medications Docusate Sodium (Colace) 100 mg PO BID [facility] Last Admin: 08/28/18 17:30 Dose: 100 mg Ergocalciferol (Drisdol 50,000 Intl Units Cap) 1 cap PO Q7D [facility] Last Admin: 08/22/18 15:11 Dose: 1 cap Ferrous Gluconate (Fergon) 324 mg PO TID [facility] Last Admin: 08/28/18 17:26 Dose: 324 mg Hydralazine HCl (Apresoline) 100 mg PO Q8 [facility] Last Admin: 08/28/18 14:31 Dose: 100 mg Cefepime HCl (Maxipime Iv 1 Gm Premix) 1 gm in 50 mls @ 100 mls/hr IVPB Q24H [facility]; Protocol Last Admin: 08/28/18 12:36 Dose: 100 mls/hr Sodium Chloride (Sodium Chloride 0.9%) 500 mls @ 50 mls/hr IV .Q10H [facility] Stop: 08/29/18 01:14 Last Admin: 08/28/18 15:27 Dose: 50 mls/hr Insulin Glargine (Lantus) 7 unit SC HS [facility] Insulin Human Regular (Novolin R) 0 unit SC ACHS [facility]; Protocol Last Admin: 08/28/18 17:26 Dose: 4 units Minoxidil (Minoxidil) 5 mg PO DAILY [facility] Last Admin: 08/28/18 10:56 Dose: 5 mg Pantoprazole Sodium (Protonix Ec Tab) 40 mg PO DAILY [facility] Last Admin: 08/28/18 10:56 Dose: 40 mg Sitagliptin Phosphate (Januvia) 25 mg PO DAILY [facility] Last Admin: 08/28/18 16:26 Dose: 25 mg Tamsulosin HCl (Flomax) 0.4 mg PO DAILY [facility] Last Admin: 08/28/18 10:56 Dose: 0.4 mg Thiamine HCl (Vitamin B1 Tab) 100 mg PO BID [facility] Last Admin: 08/28/18 17:30 Dose: 100 mg - Labs Labs: 08/21/18 22:40 08/28/18 11:14 PT 11.5 SECONDS (9.7-12.2) 08/21/18 22:40 INR 1.1 08/21/18 22:40 APTT 39 SECONDS (21-34) H 08/21/18 22:40 - Constitutional Appears: Well - Head Exam Head Exam: ATRAUMATIC, NORMAL INSPECTION, NORMOCEPHALIC - Eye Exam Eye Exam: EOMI, Normal appearance, PERRL Pupil Exam: NORMAL ACCOMODATION, PERRL - ENT Exam ENT Exam: Mucous Membranes Moist, Normal Exam - Neck Exam Neck Exam: Full ROM, Normal Inspection. absent: Lymphadenopathy - Respiratory Exam Respiratory Exam: Decreased Breath Sounds - Cardiovascular Exam Cardiovascular Exam: REGULAR RHYTHM, +S1, +S2 - GI/Abdominal Exam GI & Abdominal Exam: Soft, Diminished Bowel Sounds - Rectal Exam Rectal Exam: Deferred
[2018-08-28] MEDS ORDERED: (Lantus) Insulin Glargine, Recombinant SC SCH (22:00)
[2018-08-29 05:36] VITALS: O2SAT 99
[2018-08-29 06:49] LABS: CALCIUM 7.7 mg/dl (8.6-10.4)
[2018-08-29] MEDS: (Novolin R) Insulin Human Regular 100 units/ml vial SC SCH ×2 (08:05→12:17)
[2018-08-29 08:18] VITALS: BP 106/54; PULSE 67; TEMP 98.1
[2018-08-29] MEDS: Pantoprazole 40 mg EC Tab PO SCH (10:22)
[2018-08-29] MEDS: Ergocalciferol 50,000 Intl Units Cap PO SCH (10:24)
[2018-08-29] MEDS: Cefepime IV 1 gm in Dextrose 1 GM/50 ML BAG IVPB SCH (12:18)
--- NOTE | 2018-08-29 14:52 | CP.PCM.PN ---
Subjective - Date & Time of Evaluation Date of Evaluation: 08/29/18 Time of Evaluation: 10:30 - Subjective Subjective: clinically same Objective - Vital Signs/Intake and Output Vital Signs (last 24 hours): Temp Pulse Resp BP Pulse Ox 98.1 F 67 20 106/54 L 99 08/29/18 07:00 08/29/18 07:00 08/29/18 07:00 08/29/18 07:00 08/29/18 07:00 Intake and Output: 08/29/18 08/29/18 06:59 18:59 Intake Total 400 Balance 400 - Medications Medications: Current Medications Docusate Sodium (Colace) 100 mg PO BID [facility] Last Admin: 08/29/18 10:21 Dose: 100 mg Ergocalciferol (Drisdol 50,000 Intl Units Cap) 1 cap PO Q7D [facility] Last Admin: 08/29/18 10:24 Dose: 1 cap Ferrous Gluconate (Fergon) 324 mg PO TID [facility] Last Admin: 08/29/18 14:34 Dose: 324 mg Hydralazine HCl (Apresoline) 100 mg PO Q8 [facility] Last Admin: 08/29/18 14:33 Dose: 100 mg Cefepime HCl (Maxipime Iv 1 Gm Premix) 1 gm in 50 mls @ 100 mls/hr IVPB Q24H [facility]; Protocol Last Admin: 08/29/18 12:18 Dose: 100 mls/hr Insulin Glargine (Lantus) 7 unit SC HS [facility] Last Admin: 08/28/18 22:32 Dose: 7 units Insulin Human Regular (Novolin R) 0 unit SC ACHS [facility]; Protocol Last Admin: 08/29/18 12:17 Dose: 2 units Minoxidil (Minoxidil) 5 mg PO DAILY [facility] Last Admin: 08/29/18 10:21 Dose: 5 mg Pantoprazole Sodium (Protonix Ec Tab) 40 mg PO DAILY [facility] Last Admin: 08/29/18 10:22 Dose: 40 mg Sitagliptin Phosphate (Januvia) 25 mg PO DAILY [facility] Last Admin: 08/29/18 10:22 Dose: 25 mg Tamsulosin HCl (Flomax) 0.4 mg PO DAILY [facility] Last Admin: 08/29/18 10:22 Dose: 0.4 mg Thiamine HCl (Vitamin B1 Tab) 100 mg PO BID [facility] Last Admin: 08/29/18 10:21 Dose: 100 mg - Labs Labs: 08/21/18 22:40 08/29/18 06:24 PT 11.5 SECONDS (9.7-12.2) 08/21/18 22:40 INR 1.1 08/21/18 22:40 APTT 39 SECONDS (21-34) H 08/21/18 22:40 - Constitutional Appears: Well - Head Exam Head Exam: ATRAUMATIC, NORMAL INSPECTION, NORMOCEPHALIC - Eye Exam Eye Exam: EOMI, Normal appearance, PERRL Pupil Exam: NORMAL ACCOMODATION, PERRL - ENT Exam ENT Exam: Mucous Membranes Moist, Normal Exam - Neck Exam Neck Exam: Full ROM, Normal Inspection. absent: Lymphadenopathy - Respiratory Exam Respiratory Exam: Decreased Breath Sounds - Cardiovascular Exam Cardiovascular Exam: REGULAR RHYTHM, +S1, +S2 - GI/Abdominal Exam GI & Abdominal Exam: Soft, Diminished Bowel Sounds - Rectal Exam Rectal Exam: Deferred
--- NOTE | 2018-08-29 17:55 | PCM.HF ---
Heart Failure Core Measure Hydralazine Nitrate Prescribed: Yes
--- NOTE | 2018-08-29 17:58 | CP.PCM.PN ---
Subjective - Date & Time of Evaluation Date of Evaluation: 08/29/18 Time of Evaluation: 11:00 - Subjective Subjective: alert and orientedx3, no sob or chest pains, no acute distress. Objective - Vital Signs/Intake and Output Vital Signs (last 24 hours): Temp Pulse Resp BP Pulse Ox 98.1 F 67 20 106/54 L 99 08/29/18 07:00 08/29/18 07:00 08/29/18 07:00 08/29/18 07:00 08/29/18 07:00 Intake and Output: 08/29/18 08/29/18 06:59 18:59 Intake Total 400 Balance 400 - Labs Labs: 08/21/18 22:40 08/29/18 06:24 PT 11.5 SECONDS (9.7-12.2) 08/21/18 22:40 INR 1.1 08/21/18 22:40 APTT 39 SECONDS (21-34) H 08/21/18 22:40 Assessment and Plan - Assessment and Plan (Free Text) Assessment: 67 year old male admitted with leg edema, diabetic foot, seen and examined. Alert and ambulatory, no sob or chest pains noted. Discussed with DR Samantha Lerma, plan to discharge home today. Advised to follow up with podiatry in 1 week. Home care for CHF arranged, advvised to follow up with PMD in 1 week.
== END 2018-08-29 14:54 | disposition home or self-care (01) | DRG 293 ==
LOC: C.ER 21:34 → C.9E 08-22 01:51 → C.6T 08-22 13:58
PROVIDERS: ADMIT Internal Medicine Nephrology; ATTEND Internal Medicine Nephrology
DX: I11.0 Hypertensive heart disease with heart failure (principal); I50.43 Acute on chronic combined systolic (congestive) and diastolic (congestive) heart failure; E11.621 Type 2 diabetes mellitus with foot ulcer; L97.529 Non-pressure chronic ulcer of other part of left foot with unspecified severity; E11.40 Type 2 diabetes mellitus with diabetic neuropathy, unspecified; M17.10 Unilateral primary osteoarthritis, unspecified knee; M19.072 Primary osteoarthritis, left ankle and foot; E78.00 Pure hypercholesterolemia, unspecified; K21.9 Gastro-esophageal reflux disease without esophagitis